=== PATIENT | female | born 1960 | race Caucasian/White ===

== ENCOUNTER → 2018-04-26 07:11 | Outpatient (CLI) | payer BC, SELFPAY ==
[2018-04-26 10:22] LABS: Hemoglobin 15.7 g/dl (12.0-15.0); Mean Corp Hgb Conc 33.4 g/gl (32-36); Mean Corpuscular Hgb 32.4 pg (27.0-32.0); Mean Corpuscular Volume 96.9 fL (81-99); Platelet Count 250 K/mm3 (150-450); RBC Distribution Width CV 13.4 % (11.6-14.6); Red Blood Count 4.85 M/mm3 (4.2-5.4); White Blood Count 9.4 K/mm3 (4.4-11.0)
[2018-04-26 10:23] LABS: Absolute Lymphocyte Count 3.13 X10^3/ul (0.83-4.51); Absolute Neutrophil Count 5.2 X10^3/uL (2.0-7.7); Basophil# 0.04 X10^3/uL; Basophil% 0.4 % (0-1); Eosinophil# 0.06 X10^3/uL; Eosinophils% 0.6 % (0-5); Lymphocyte # 3.13 X10^3/ul (4.0); Lymphocyte % 33.4 % (19-41); Mean Platelet Vol. 11.5 fl (6.2-12.0); Monocyte# 0.83 X10^3/uL; Monocyte% 8.9 % (0-10); Neutrophil # 5.24 X10^3/uL (2.7-7.7); Neutrophil % 56.1 % (47-70); POSITIVE COUNT NO; POSITIVE DIFFERENTIAL NO; POSITIVE MORPHOLOGY NO
[2018-04-26 10:25] LABS: Hemoglobin A1c 5.9 % (4.2-6.3)
[2018-04-26 10:54] LABS: ALB/GLOB Ratio 0.9 RATIO (0.9-2.4); AST(SGOT) 19 U/L (15-37); Alanine Aminotransfer ALT/SGPT 28 U/L (13-56); Albumin, Serum 4.1 g/dL (3.2-5.0); Alkaline Phosphatase 84 U/L (45-117); Anion Gap 11 (5-15); BUN 10 mg/dL (7-18); Calcium,Total 9.3 mg/dL (8.5-10.1); Chloride 95 mmol/L (98-107); Cholesterol 280 mg/dL (200); EST Glomerular Filtration Rate 61 mL/min (>60); Est Glom Filt Rate - Afr Amer 74 mL/min (>60); Globulin 4.6 g/dL (2.2-4.2); Glucose 96 mg/dL (74-106); High Density Lipoprotein 46 mg/dL; Potassium 4.1 mmol/L (3.5-5.1); Protein, Total 8.7 g/dL (6.4-8.2); Sodium Level 134 mmol/L (136-145); T4 Free Direct 0.36 ng/dL (0.76-1.46); Triglycerides 255 mg/dL; Very Low Density Lipoprotein 51 mg/dL (5-40)
== END ==
PROVIDERS: Family Provider Family Medicine; PCP Family Medicine; Referring Provider Family Medicine; Visit Provider Family Medicine
DX: Z00.01 Encounter for general adult medical examination with abnormal findings (principal); E78.5 Hyperlipidemia, unspecified; R63.5 Abnormal weight gain; R63.1 Polydipsia
CPT/HCPCS: 36415; 80053; 80061; 83036; 84439; 84443; 85025

== ENCOUNTER → 2018-05-09 14:45 | Outpatient (CLI) | payer BC, SELFPAY ==
--- NOTE | 2018-05-09 14:51 | CT_ITS ---
STUDY: LOW DOSE CT LUNG CANCER SCREENING REASON FOR EXAM: Female, 57 years old. Smoked 4-5 cigarettes for 17 years. RADIATION DOSAGE (If Supplied By Facility): CTDIvol = ( 3.40 ) mGy, DLP = ( 99.57 ) mGycm TECHNIQUE: No contrast was administered. Low dose technique was utilized (average mAS-38 and kVp 120). 1.25 mm axial source images with a slice interval of 1.25-mm were reconstructed in lung windows. 2.5 mm axial source images with a slice interval of 2.5-mm were reconstructed in lung windows. 5.0 mm axial source images with a slice interval of 5.0-mm were reconstructed in soft tissue windows. Nodule measured using lung windows on PACS and/or independent workstation with automated measurement of minimum and maximum diameter. Nodule measurement reported as average diameter rounded to the nearest whole number. Growth is defined as an increase ins size of greater than 1.5 mm. COMPARISON: None. NODULES: Total lung nodules (excluding granulomas): 0 Emphysema: There are diffuse emphysematous changes throughout the lungs. There is linear atelectasis versus scarring in the lingula. Endobronchial lesion: None Aorta: There is mild atherosclerotic tortuosity of the thoracic aorta without aneurysm. Coronary arteries: There are diffuse coronary artery calcifications. Heart: The heart is normal in size. There is a pericardial effusion. Pulmonary artery: Normal Mediastinal nodes: None Other chest and abdominal findings: There is a large retrocardiac hiatal hernia. There are degenerative changes of the thoracic spine. CT/Low Dose CT Lung Screening IMPRESSION: Lung-RADS category 1 - Continue annual screening with LDCT in 12 months. IMPORTANT NOTES FOR USE: ACR Lung-RADS Version 1.0 Assessment Categories Release Date: November 10, 2013 Category: Coded 0-4 bases on nodule(s) with highest degree of suspicion. Negative screen is defined as categories 1 and 2; a positive screen is defined as categories 3 and 4. Category 3 and 4A nodules that are unchanged on interval CT should be coded as category 2, and individuals returned to screening in 12 months. Category 4X: Category 3 or 4 nodules with additional imaging findings that increase the suspicion of lung cancer, such as spiculation, GGN that doubles in size in 1 year, enlarged lymph notes, etc. Category Modifiers: S (significant finding unrelated to lung cancer) and C (prior history of treated lung cancer) may be added to the 0-4 Lung-RADS Electronically Signed: Nickolas Summers DO at 21:06 EDT Tel [phone], Service support ,
== END ==
PROVIDERS: Family Provider Family Medicine; PCP Family Medicine; Referring Provider Family Medicine; Visit Provider Family Medicine
DX: Z12.2 Encounter for screening for malignant neoplasm of respiratory organs (principal)
CPT/HCPCS: G0297

== ENCOUNTER → 2018-07-10 16:06 | Outpatient (CLI) | payer BC, SELFPAY ==
[2018-07-10 17:52] LABS: Thyroid Stim Hormone (TSH) 0.13 uIU/mL (0.358-3.74)
== END ==
PROVIDERS: PCP Family Medicine; Visit Provider Family Medicine
DX: E03.9 Hypothyroidism, unspecified (principal)
CPT/HCPCS: 36415; 84443

== ENCOUNTER → 2018-10-29 08:45 | Outpatient (CLI) | payer BC, SELFPAY ==
[2018-10-29 13:32] LABS: Cholesterol 237 mg/dL (200); High Density Lipoprotein 48 mg/dL; Triglycerides 316 mg/dL; Very Low Density Lipoprotein 63 mg/dL (5-40)
== END ==
PROVIDERS: Family Provider Family Medicine; PCP Family Medicine; Visit Provider Family Medicine
DX: E78.1 Pure hyperglyceridemia (principal); E03.9 Hypothyroidism, unspecified
CPT/HCPCS: 36415; 80061; 84443

== ENCOUNTER → 2019-10-21 15:23 | Outpatient (CLI) | payer BC, SELFPAY ==
[2019-09-13 11:09] VITALS: BMI 32.2
== END ==
PROVIDERS: PCP Family Medicine; Referring Provider Family Medicine; Visit Provider Family Medicine
DX: R05 Cough (principal); R50.9 Fever, unspecified
CPT/HCPCS: 87633

== ENCOUNTER → 2020-02-27 14:13 | Outpatient (CLI) | payer BC, SELFPAY ==
[2019-09-13 11:09] VITALS: BMI 32.2
[2020-02-27 17:09] LABS: Absolute Neutrophil Count 5.3 X10^3/uL (2.0-7.7); Basophil# 0.07 X10^3/uL; Basophil% 0.7 % (0-1); Hematocrit 47.3 % (37-47); Hemoglobin 15.5 g/dL (12.0-15.0); Lymphocyte % 32.9 % (19-41); Mean Corp Hgb Conc 32.8 g/dL (32-36); Mean Corpuscular Hgb 31.1 pg (27.0-32.0); Monocyte# 1.15 X10^3/uL; Monocyte% 11.5 % (0-10); NRBC Flagged by Analyzer 0 % (0-5); Neutrophil # 5.31 X10^3/uL (2.7-7.7); Neutrophil % 52.9 % (47-70); Platelet Count 302 K/mm3 (150-450); RBC Distribution Width CV 12.7 % (11.6-14.6); RBC Distribution Width SD 44.3 fl (35.1-43.9); Red Blood Count 4.98 M/mm3 (4.2-5.4)
[2020-02-27 17:36] LABS: ALB/GLOB Ratio 0.9 RATIO (0.9-2.4); AST(SGOT) 24 U/L (15-37); Alanine Aminotransfer ALT/SGPT 37 U/L (13-56); Alkaline Phosphatase 104 U/L (45-117); Anion Gap 8 (5-15); BUN 9 mg/dL (7-18); BUN/Creat Ratio 10.4 RATIO (10-20); Calcium,Total 9.1 mg/dL (8.5-10.1); Chloride 98 mmol/L (98-107); Cholesterol 260 mg/dL (200); Creatinine, Serum 0.87 mg/dL (0.55-1.02); EST Glomerular Filtration Rate 71 mL/min (>60); Est Glom Filt Rate - Afr Amer 86 mL/min (>60); Globulin 4.6 g/dL (2.2-4.2); Glucose 90 mg/dL (74-106); High Density Lipoprotein 49 mg/dL; Potassium 3.9 mmol/L (3.5-5.1); Protein, Total 8.6 g/dL (6.4-8.2); Sodium Level 133 mmol/L (136-145); T4 Free Direct 1.59 ng/dL (0.76-1.46); Triglycerides 533 mg/dL
== END ==
PROVIDERS: PCP Family Medicine; Visit Provider Family Medicine
DX: Z00.00 Encounter for general adult medical examination without abnormal findings (principal); E03.9 Hypothyroidism, unspecified
CPT/HCPCS: 36415; 80053; 80061; 84439; 84443; 85025

== ENCOUNTER → 2020-03-25 07:54 | Outpatient (CLI) | payer BC, SELFPAY ==
[2019-09-13 11:09] VITALS: BMI 32.2
--- NOTE | 2020-03-25 07:58 | BI_ITS ---
MAMMOGRAPHY - BILATERAL SCREENING REASON FOR EXAM: Female, 59 years old. Routine annual screening examination. PERTINENT HISTORY: Sister with breast cancer. Mother with breast cancer. Remote left excisional breast biopsy and left stereotactic breast biopsy. TECHNIQUE: Digital bilateral breast elvira (3D mammographic acquisition) in the CC and MLO projections. 2-D mediolateral oblique (MLO) and craniocaudad (CC) views of both breasts were obtained. CAD: Full Field Digital Mammography with Computer Added Detection was performed. COMPARISON: Comparison is made with prior study dated 09/13/2016. FINDINGS: Breast Composition: There are scattered areas of fibroglandular density. There are no dominant masses or suspicious calcifications. Dilatation clip markers are seen in the upper outer quadrant of the left breast. The previously seen cluster microcalcifications in the anterior upper lateral portion of the left breast as well as the calcifications in the lateral deep portion of the left breast have been biopsied. There is a 1 cm well-defined nodule in the deep medial portion of the left breast seen on the craniocaudad view. This most likely represents a skin lesion. No other significant abnormalities are identified. BI/SCREEN MAMM (CAD) W/ELVIRA BILAT IMPRESSION: Status post biopsy of the microcalcifications in the left breast.. Yearly follow-up mammogram recommended. (A) ASSESSMENT CATEGORY: BIRADS Category 2: Benign. A letter regarding these results will be sent to the patient by the facility within 30 days. Approximately 10% of breast cancers are not detected by mammography. A normal mammogram should not delay biopsy of a clinically suspicious abnormality. [id number] Electronically Signed: Siddhartha Negron, at 8:43 EDT , Service support ,
== END ==
PROVIDERS: PCP Family Medicine; Referring Provider Family Medicine; Visit Provider Family Medicine
DX: Z12.31 Encounter for screening mammogram for malignant neoplasm of breast (principal)
CPT/HCPCS: 77063; 77067

== ENCOUNTER 2021-08-03 12:14 | Outpatient (CLI) | payer OTHER, SELFPAY ==
--- NOTE | 2021-08-03 12:20 | BI_ITS ---
MAMMOGRAPHY - BILATERAL SCREENING REASON FOR EXAM: Female, 61 years old. Routine annual screening examination. PERTINENT HISTORY: Sister with breast cancer. Mother with breast cancer. TECHNIQUE: Digital bilateral breast elvira (3D mammographic acquisition) in the CC and MLO projections. 2-D mediolateral oblique (MLO) and craniocaudad (CC) views of both breasts were obtained. CAD: Full Field Digital Mammography with Computer Added Detection was performed. COMPARISON: Comparison is made with prior study dated 03/25/2020 and 09/13/2016. FINDINGS: Breast Composition: There are scattered areas of fibroglandular density. There are no dominant masses or suspicious calcifications. Stable 1 cm well-defined nodule in the deep medial portion of the left breast as seen on the craniocaudad view. This most likely represents an overlying skin lesion. Tissue clip marker is once again seen in the upper lateral aspect of the left breast. No other significant abnormalities are identified. There has been no significant change since the prior study. BI/SCRN MAMM (CAD)W/ELVIRA BILAT IMPRESSION: Stable bilateral screening mammogram. Yearly follow-up mammogram recommended. (A) ASSESSMENT CATEGORY: BIRADS Category 2: Benign. A letter regarding these results will be sent to the patient by the facility within 30 days. Approximately 10% of breast cancers are not detected by mammography. A normal mammogram should not delay biopsy of a clinically suspicious abnormality. [id number] Electronically Signed: Siddhartha Negron MD at 13:37 EST , Service support ,
== END 2021-08-03 23:59 | disposition short-term general hospital (02) ==
LOC: OPBI 12:19
PROVIDERS: PCP Family Medicine; Referring Provider Family Medicine; Visit Provider Family Medicine
DX: Z12.31 Encounter for screening mammogram for malignant neoplasm of breast (principal); Z80.3 Family history of malignant neoplasm of breast
CPT/HCPCS: 77063; 77067

== ENCOUNTER 2021-11-09 07:08 | Emergency (ER) | payer OTHER, SELFPAY ==
[2021-11-09 07:09] VITALS: BP 145/94; PULSE 93; RESP 14; TEMP 36.3; O2SAT 96; BMI 29.1
--- NOTE | 2021-11-09 07:31 | EKG12_ITS ---
Test Reason : Blood Pressure : / mmHG Vent. Rate : 085 BPM Atrial Rate : 085 BPM P-R Int : 148 ms QRS Dur : 068 ms QT Int : 386 ms P-R-T Axes : 051 001 076 degrees QTc Int : 459 ms Normal sinus rhythm Low voltage QRS (Limb Leads) Anterior Septal [place], age undetermined, cannot be excluded Confirmed by ROLAND HOANG, KEVIN ([id number]), order editor NORMAN GREGORY ([id number]) on 11/11/2021 10:25:20 AM Referred By: ASHKAN Confirmed By:KEVIN WATKINS MD
--- NOTE | 2021-11-09 07:31 | CT_ITS ---
EXAM: CT HEAD WITHOUT INTRAVENOUS CONTRAST CLINICAL INDICATION: Trauma TECHNIQUE: Multiple axial images were obtained of the head without intravenous contrast. This CT exam was performed using one or more of the following dose reduction techniques: automated exposure control, adjustment of the mA and/or kV according to patient size, and/or use of iterative reconstruction technique. This report was created using [employer] report generation technology. COMPARISON: None. FINDINGS: BRAIN AND EXTRA-AXIAL SPACES: Unremarkable. No intra- or extra-axial hemorrhage. No evidence of acute infarct. No intracranial mass or mass effect. There is preservation of the castrejon/white matter interface. Posterior fossa structures are unremarkable. Ventricles are appropriate for age. No hydrocephalus. Basal cisterns are patent. BONES/JOINTS: Unremarkable. No discrete lytic or blastic abnormalities. SINUSES: Unremarkable as visualized. Clear. MASTOID AIR CELLS: Unremarkable. Clear. ORBITS: Visualized globes, extraocular muscles, optic nerves and retrobulbar fat appear unremarkable. CT/Brain/Head without Contrast IMPRESSION: No acute abnormality. Electronically Signed: Jona Epps MD at 8:31 EDT ,
--- NOTE | 2021-11-09 07:32 | EDS_ITS ---
HPI History of Present Illness Chief Complaint: Syncope Informant: patient Onset/Context/Timing Onset: Today Narrative Narrative: Patient presents via private vehicle after 2 syncopal episodes at work this morning. She states she did not feel well when she got up this morning feeling fuzzy. She reports having a fever up to 102 with mild cough and congestion the past 2 days. She is not been eating and drinking much. She states she was standing at work remembers feeling lightheaded. The next thing she knows she woke up on the floor. Her coworker sat her up when she passed out again. She denies chest pain or palpitations. [facility] Medical History Hx of gastroesophageal reflux (GERD) Hypothyroidism Home Medications pantoprazole 40 mg PO DAILY 12/18/16 [History Last Taken Unknown] levothyroxine 150 mcg tablet 150 mcg PO DAILY 09/13/19 [History Last Taken Unknown] sulfamethoxazole-trimethoprim [Bactrim DS] 1 tab PO BID #6 tab 11/09/21 [Rx Last Taken Unknown] Allergy/AdvReac Type Severity Reaction Status Date / Time amoxicillin Allergy Unknown Verified 11/09/21 07:11 Penicillins Allergy Unknown Verified 11/09/21 07:11 azithromycin AdvReac Rash Verified 11/09/21 07:11 [From Zithromax Z-Jl] cephalexin [From Keflex] AdvReac Rash Verified 11/09/21 07:11 erythromycin base AdvReac Rash Verified 11/09/21 07:11 erythromycin Allergy Unknown Uncoded 11/09/21 07:11 Social History Smoking Status: Current every day smoker tobacco type: cigarettes ROS ROS ED Constitutional Constitutional ED: Reports fever(s); Denies chills Eyes Eyes: Denies change in vision ENT ENT ED: Denies sore throat Cardiovascular Cardiovascular: Denies chest pain or palpitations Respiratory/Chest Respiratory/Chest: Reports cough; Denies dyspnea or sputum Gastrointestinal Gastrointestinal: Denies abdominal pain, diarrhea, nausea or vomiting Genitourinary Genitourinary ED: Reports urinary frequency; Denies dysuria Musculoskeletal Musculoskeletal: Denies back pain or neck pain Integumentary Denies rash Neurologic Neurologic: Denies headache(s) or weakness Psychiatric Psychiatric: Denies anxiety or depression Allergic/Immunologic Allergic/Immunologic ED: Denies urticaria EXAM Physical Exam Const Vital Signs: 11/09/21 07:09 11/09/21 07:16 11/09/21 09:14 Temperature 97.4 F L Temperature Source Temporal Pulse Rate 93 Respiratory Rate 14 Respiratory Effort Normal Non-Labored Blood Pressure 145/94 H 135/87 H Blood Pressure Mean 111 103 Pulse Ox 96 Oxygen Delivery Method Room Air Positive well nourished and well developed General Appearance ED: well developed HEENT Negative for trauma Eyes PERRL and EOMs intact bilaterally Neck supple Chest Wall inspection of chest normal and palpation of chest normal Resp normal respiratory effort and clear to auscultation bilaterally Cardio regular rate and regular rhythm GI normal to inspection, nondistended, normoactive bowel sounds and non-tender Palpation: soft Extremity normal to inspection Neuro oriented x3 and no sensory deficits noted Sensorium / Orientation: alert Motor Exam: strength 5/5 throughout Psych mental status grossly normal Skin no rashes or lesions noted MDM MDM MDM Narrative Medical decision making narrative: Lab work, EKG, chest x-ray, head CT obtained. Swabs for influenza and COVID obtained. Patient given IV fluids. Lab Data Attestation: I reviewed the patient's lab results. Labs: Laboratory Results - last 24 hr 11/09/21 11/09/21 11/09/21 07:43 07:43 08:18 WBC 5.3 RBC 5.05 Hgb 15.6 H Hct 46.7 MCV 92.5 MCH 30.9 MCHC 33.4 RDW Std Deviation 46.5 H RDW Coeff of Aury 13.6 Plt Count 192 MPV 10.1 Immature Gran % (Auto) 0.800 Neut % (Auto) 57.5 Lymph % (Auto) 26.6 [place] % (Auto) 14.7 H Eos % (Auto) 0.0 Baso % (Auto) 0.4 Absolute Neuts (auto) 3.1 Absolute Lymphs (auto) 1.41 Nucleated RBC % 0 Sodium 127 L Potassium 3.9 Chloride 94 L Carbon Dioxide 24.0 Anion Gap 9 BUN 18 Creatinine 0.94 Estim Creat Clear Calc 54.27 Est GFR (MDRD) Af Amer 78 Est GFR (MDRD) Non-Af 65 BUN/Creatinine Ratio 19.3 Glucose 113 H Calcium 8.3 L Urine Color Yellow Urine Clarity Cloudy Urine pH 6.0 Ur Specific [place] 1.020 Urine Protein 30 H Urine Glucose (UA) Normal Urine Ketones 15 H Urine Occult Blood 25 H Urine Nitrite Positive H Urine Bilirubin Negative Urine Urobilinogen Normal Ur Leukocyte Esterase 500 H Urine RBC 0-5 SEEN Urine WBC 25-50 SEEN Ur Squamous Epith Cells 0 SEEN Urine Bacteria 4+ Urine Mucus 0 SEEN Radiography Chest X-Ray - ED: 1 View, Read by ED Physician and Chronic Changes Diagnostic Testing: Clinical Impression(s) from Imaging Studies Brain CT 11/09/21 07:31 IMPRESSION: No acute abnormality. Electronically Signed: Jona Epps MD at 8:31 EDT , Chest X-Ray 11/09/21 07:55 IMPRESSION: 1. Mild cardiomegaly. 2. Hiatal hernia. Electronically Signed: Jona Epps MD at 8:34 EDT , EKG Initial EKG: Attestation: I personally reviewed and interpreted this EKG as follows: Interpretation: Sinus Rhythm (Sinus 85 with no acute ischemia.) Treatment and Re-Evaluation Narrative: Lab work reviewed and discussed with patient and at bedside. CBC reveals hemoglobin concentrated at 15.6. Chemistry studies reveal sodium of 127. Urinalysis shows 15 ketones, positive nitrites, 25-50 white cells, 4+ bacteria. COVID test is positive. Influenza test negative. Patient does feel improved on repeat evaluation. Test results discussed with her. Urine culture is sent and she is given p.o. Bactrim. Prescription for Bactrim will be sent to the pharmacy for her. She is written off work for a total of 10 days from onset of symptoms. Discharge Plan Triage Chief Complaint: Syncope ED Provider: Cece Jovel Dx/Rx/DC Orders Clinical Impression: COVID-19, UTI (urinary tract infection) Instructions: Coronavirus Disease 2019 (COVID-19): Caring for Yourself or Others, ED CYSTITIS Female Adult Prescriptions: New sulfamethoxazole-trimethoprim [Bactrim DS] 800-160 mg tablet 1 tab PO BID Qty: 6 RF: 0 No Action levothyroxine [Synthroid] 150 mcg tablet 150 mcg PO DAILY RF: 0 pantoprazole 40 MG tablet 40 mg PO DAILY RF: 0 Stand Alone Forms: ED Work / School Excuse Primary Care Provider: Adriano Patel Referrals: Adriano Patel DO [Primary Care Provider] - 1 Week Disposition Disposition: Home, Self Care
[2021-11-09] MEDS: 0.9% Normal Saline 1,000 ML 1000 ML IV (07:45)
[2021-11-09 07:49] LABS: Absolute Lymphocyte Count 1.41 X10^3/uL (0.83-4.51); Absolute Neutrophil Count 3.1 X10^3/uL (2.0-7.7); Basophil# 0.02 X10^3/uL; Basophil% 0.4 % (0-1); Hematocrit 46.7 % (37-47); Hemoglobin 15.6 g/dL (12.0-15.0); Lymphocyte # 1.41 X10^3/ul (0.83-4.51); Lymphocyte % 26.6 % (19-41); Mean Corp Hgb Conc 33.4 g/dL (32-36); Mean Corpuscular Hgb 30.9 pg (27.0-32.0); Mean Corpuscular Volume 92.5 fL (81-99); Mean Platelet Vol. 10.1 fl (6.2-12.0); Monocyte# 0.78 X10^3/uL; Monocyte% 14.7 % (0-10); NRBC Flagged by Analyzer 0 % (0-5); Neutrophil # 3.05 X10^3/uL (2.7-7.7); Neutrophil % 57.5 % (47-70); Platelet Count 192 K/mm3 (150-450); RBC Distribution Width CV 13.6 % (11.6-14.6); RBC Distribution Width SD 46.5 fl (35.1-43.9); Red Blood Count 5.05 M/mm3 (4.2-5.4); White Blood Count 5.3 K/mm3 (4.4-11.0)
--- NOTE | 2021-11-09 07:55 | RAD_ITS ---
EXAM: XR CHEST, 1 VIEW CLINICAL INDICATION: cough TECHNIQUE: Frontal view of the chest. This report was created using [employer] report generation technology. COMPARISON: None. FINDINGS: LUNGS AND PLEURAL SPACES: Unremarkable. No consolidation or edema. No pneumothorax. No effusion. HEART: Mild cardiomegaly. MEDIASTINUM: Moderate-sized hiatal hernia. BONES/JOINTS: Unremarkable. SOFT TISSUES: Unremarkable. RAD/Chest 1 View (Portable) IMPRESSION: 1. Mild cardiomegaly. 2. Hiatal hernia. Electronically Signed: Jona Epps MD at 8:34 EDT ,
[2021-11-09 08:02] LABS: Anion Gap 9 (5-15); BUN 18 mg/dL (7-18); BUN/Creat Ratio 19.3 RATIO (10-20); Calcium,Total 8.3 mg/dL (8.5-10.1); Chloride 94 mmol/L (98-107); Creatinine, Serum 0.94 mg/dL (0.55-1.02); EST Glomerular Filtration Rate 65 mL/min (>60); Est Glom Filt Rate - Afr Amer 78 mL/min (>60); Estimated Creatinine Clearance 54.27 ml/min; Glucose 113 mg/dL (74-106); Potassium 3.9 mmol/L (3.5-5.1); Sodium Level 127 mmol/L (136-145)
[2021-11-09 08:24] LABS: Mucous, Urine 0 SEEN /hpf (<or=2+); Squamous Epithelial Cells - UA 0 SEEN /hpf (5-10)
[2021-11-09 08:27] LABS: Color, Urine Yellow (Yellow); Glucose, Dipstick Normal (Normal); Ketone-Dipstick 15 mg/dl (Negative); Leukocyte Esterase-Dipstick 500 /ul (Negative); Nitrite-Dipstick Positive (Negative); Occult Blood-Urine 25 /ul (Negative); Protein-Dipstick 30 mg/dl (Negative); Urine Bilirubin Dipstick Negative (Negative); Urine Clarity Cloudy (Clear); Urine Urobilinogen Normal (Normal)
[2021-11-09 08:39] LABS: Bacteria 4+ /hpf (None Seen); Red Blood Cells-Urine 0-5 SEEN /hpf (0-5); White Blood Cells 25-50 SEEN /hpf (0-5)
[2021-11-09 09:14] VITALS: BP 135/87
[2021-11-09] MEDS: 0.9% Normal Saline 1,000 ML 150 ML IV (09:34)
[2021-11-09] MEDS: Smz/Tmp Ds Tablet 1 TABLET PO (09:34)
== END 2021-11-09 09:58 | disposition home or self-care (01) ==
PROVIDERS: Emergency Provider Emergency Medicine; PCP Family Medicine; Visit Provider Emergency Medicine
DX: U07.1 COVID-19 (principal); F17.210 Nicotine dependence, cigarettes, uncomplicated; N39.0 Urinary tract infection, site not specified; E03.9 Hypothyroidism, unspecified; K21.9 Gastro-esophageal reflux disease without esophagitis; Z79.899 Other long term (current) drug therapy
CPT/HCPCS: 70450; 71045; 80048; 81001; 85025; 87077; 87086; 87088; 87186; 87428; 93005; 96360; 96361; 99284; J7030; A4216

== ENCOUNTER → 2022-07-06 | Outpatient (CLI) | payer OTHER, SELFPAY ==
--- NOTE | 2022-07-06 10:36 | RAD_ITS ---
INDICATION: BACK PAIN EXAMINATION/TECHNIQUE: X-RAY - XR Spine Lumbar Min 4 Views COMPARISON: None. FINDINGS: VERTEBRAE: Preserved vertebral body height. No fracture. Grade 1 spondylolisthesis at L4-5.. Preservation of the normal lumbar lordosis. DISCS: Mild narrowing of L4-5 disc space and multilevel endplate spurring INCLUDED ABDOMEN: Included bowel gas pattern is non-obstructive. RAD/L/S Spine Min 4 Views IMPRESSION: Mild spondylosis. No acute fracture or other significant bony pathology Electronically Signed: Gerardo Goodman MD at 22:02 EST ,
--- NOTE | 2022-07-06 10:36 | RAD_ITS ---
INDICATION: BACK PAIN EXAMINATION/TECHNIQUE: X-RAY - XR Spine Thoracic 2 Views COMPARISON: Chest radiograph 11/09/2021. FINDINGS: No visible fracture. No osseous destruction. Sagittal alignment anatomic. Mild left scoliosis centered at T8. Prominent disc degeneration mid and lower thoracic spine. No acute soft tissue abnormality. Calcific atherosclerosis. Hiatal hernia again demonstrated. RAD/Thoracic Spine 2 Views IMPRESSION: No acute osseous abnormality. Electronically Signed: Sergio Shi MD at 23:52 EST Reading Location ID and State: [facility] / [place] Tel , Service support ,
[2022-07-06 12:19] LABS: Absolute Lymphocyte Count 2.79 X10^3/uL (0.83-4.51); Absolute Neutrophil Count 4.3 X10^3/uL (2.0-7.7); Basophil# 0.05 X10^3/uL; Basophil% 0.6 % (0-1); Eosinophil# 0.06 X10^3/uL; Eosinophils% 0.7 % (0-5); Hematocrit 44.5 % (37-47); Hemoglobin 14.8 g/dL (12.0-15.0); Lymphocyte # 2.79 X10^3/ul (0.83-4.51); Lymphocyte % 34.4 % (19-41); Mean Corp Hgb Conc 33.3 g/dL (32-36); Mean Corpuscular Hgb 30.7 pg (27.0-32.0); Mean Corpuscular Volume 92.3 fL (81-99); Monocyte# 0.88 X10^3/uL; Monocyte% 10.8 % (0-10); NRBC Flagged by Analyzer 0 % (0-5); Neutrophil # 4.27 X10^3/uL (2.7-7.7); Neutrophil % 52.6 % (47-70); Platelet Count 300 K/mm3 (150-450); RBC Distribution Width CV 12.8 % (11.6-14.6); RBC Distribution Width SD 43.3 fl (35.1-43.9); Red Blood Count 4.82 M/mm3 (4.2-5.4); White Blood Count 8.1 K/mm3 (4.4-11.0)
[2022-07-06 12:30] LABS: Vitamin B12 287 pg/mL (211-911); Vitamin D,25 Hydroxy 15.7 ng/mL
[2022-07-06 12:38] LABS: ALB/GLOB Ratio 0.8 RATIO (0.9-2.4); AST(SGOT) 24 U/L (15-37); Alanine Aminotransfer ALT/SGPT 32 U/L (13-56); Albumin, Serum 3.6 g/dL (3.2-5.0); Alkaline Phosphatase 87 U/L (45-117); Anion Gap 6 (5-15); BUN 15 mg/dL (7-18); BUN/Creat Ratio 17.8 RATIO (10-20); Calcium,Total 9.6 mg/dL (8.5-10.1); Chloride 101 mmol/L (98-107); Cholesterol 261 mg/dL (200); Creatinine, Serum 0.84 mg/dL (0.55-1.02); EST Glomerular Filtration Rate 73 mL/min (>60); Est Glom Filt Rate - Afr Amer 88 mL/min (>60); Globulin 4.5 g/dL (2.2-4.2); Glucose 117 mg/dL (74-106); High Density Lipoprotein 48 mg/dL; Magnesium 2.3 mg/dL (1.6-2.6); Potassium 4.4 mmol/L (3.5-5.1); Protein, Total 8.1 g/dL (6.4-8.2); Sodium Level 132 mmol/L (136-145); T4 Free Direct 1.68 ng/dL (0.76-1.46); Thyroid Stim Hormone (TSH) 0.23 uIU/mL (0.358-3.74); Triglycerides 314 mg/dL; Very Low Density Lipoprotein 63 mg/dL (5-40)
== END | disposition home or self-care (01) ==
PROVIDERS: PCP Family Medicine; Referring Provider Family Medicine; Visit Provider Family Medicine
DX: K44.9 Diaphragmatic hernia without obstruction or gangrene (principal); M51.34 Other intervertebral disc degeneration, thoracic region; I25.10 Atherosclerotic heart disease of native coronary artery without angina pectoris; I10 Essential (primary) hypertension; E03.9 Hypothyroidism, unspecified; R10.9 Unspecified abdominal pain; R25.2 Cramp and spasm; R53.83 Other fatigue
CPT/HCPCS: 36415; 72070; 72072; 72110; 80053; 80061; 82306; 82607; 83735; 84439; 84443; 85025

== ENCOUNTER → 2022-12-14 | Outpatient (CLI) | payer OTHER, SELFPAY ==
[2022-12-14 18:22] LABS: Absolute Lymphocyte Count 2.85 X10^3/uL (0.83-4.51); Absolute Neutrophil Count 5.5 X10^3/uL (2.0-7.7); Basophil# 0.05 X10^3/uL; Basophil% 0.5 % (0-1); Eosinophil# 0.06 X10^3/uL; Eosinophils% 0.6 % (0-5); Hematocrit 45.8 % (37-47); Hemoglobin 14.3 g/dL (12.0-15.0); Lymphocyte # 2.85 X10^3/ul (0.83-4.51); Lymphocyte % 29.7 % (19-41); Mean Corp Hgb Conc 31.2 g/dL (32-36); Mean Corpuscular Hgb 28.4 pg (27.0-32.0); Mean Corpuscular Volume 91.1 fL (81-99); Mean Platelet Vol. 10.8 fl (6.2-12.0); Monocyte# 1.06 X10^3/uL; NRBC Flagged by Analyzer 0 % (0-5); Neutrophil # 5.48 X10^3/uL (2.7-7.7); Neutrophil % 57.2 % (47-70); Platelet Count 317 K/mm3 (150-450); RBC Distribution Width SD 46.7 fl (35.1-43.9); Red Blood Count 5.03 M/mm3 (4.2-5.4); White Blood Count 9.6 K/mm3 (4.4-11.0)
[2022-12-14 18:44] LABS: Vitamin B12 570 pg/mL (211-911); Vitamin D,25 Hydroxy 75.7 ng/mL
[2022-12-14 18:46] LABS: ALB/GLOB Ratio 0.9 RATIO (0.9-2.4); AST(SGOT) 30 U/L (15-37); Alanine Aminotransfer ALT/SGPT 27 U/L (13-56); Albumin, Serum 3.7 g/dL (3.2-5.0); Alkaline Phosphatase 87 U/L (45-117); Anion Gap 8 (5-15); BUN 13 mg/dL (7-18); BUN/Creat Ratio 11.2 RATIO (10-20); Calcium,Total 9.3 mg/dL (8.5-10.1); Chloride 100 mmol/L (98-107); Cholesterol 242 mg/dL (200); Creatinine, Serum 1.16 mg/dL (0.55-1.02); EST Glomerular Filtration Rate 50 mL/min (>60); Est Glom Filt Rate - Afr Amer 61 mL/min (>60); Globulin 4.3 g/dL (2.2-4.2); Glucose 105 mg/dL (74-106); High Density Lipoprotein 44 mg/dL; Sodium Level 134 mmol/L (136-145); T4 Free Direct 1.51 ng/dL (0.76-1.46); Thyroid Stim Hormone (TSH) 0.57 uIU/mL (0.358-3.74); Triglycerides 448 mg/dL
== END | disposition home or self-care (01) ==
PROVIDERS: PCP Family Medicine; Referring Provider Family Medicine; Visit Provider Family Medicine
DX: I25.10 Atherosclerotic heart disease of native coronary artery without angina pectoris (principal); I10 Essential (primary) hypertension; E03.9 Hypothyroidism, unspecified; R10.9 Unspecified abdominal pain; R25.2 Cramp and spasm; E53.8 Deficiency of other specified B group vitamins; E55.9 Vitamin D deficiency, unspecified
CPT/HCPCS: 36415; 80053; 80061; 82306; 82607; 84439; 84443; 85025

== ENCOUNTER → 2023-12-27 | Outpatient (CLI) | payer OTHER, SELFPAY ==
--- NOTE | 2023-12-27 11:50 | BI_ITS ---
MAMMOGRAPHY - BILATERAL SCREENING REASON FOR EXAM: Female, 63 years old. Routine annual screening examination. PERTINENT HISTORY: Sister with breast cancer. Mother with breast cancer. Remote left excisional breast biopsy. Possible sebaceous cyst in the medial aspect of the right breast. TECHNIQUE: Digital bilateral breast elvira (3D mammographic acquisition) in the CC and MLO projections. 2-D mediolateral oblique (MLO) and craniocaudad (CC) views of both breasts were obtained. CAD: Full Field Digital Mammography with Computer Added Detection was performed. COMPARISON: Comparison is made with prior study dated August 03, 2021 and March 25, 2020. FINDINGS: Breast Composition: There are scattered areas of fibroglandular density. There are no dominant masses or suspicious calcifications. 1 cm well-defined nodule in the deep inferior medial aspect of the right breast suggestive of a skin lesion such as a sebaceous cyst. A tissue clip marker is seen involving the upper lateral aspect of the left breast. Stable bilateral axillary lymph nodes. No other significant abnormalities are identified. There has been no significant change since the prior study. BI/SCRN MAMM (CAD)W/ELVIRA BILAT IMPRESSION: Stable bilateral screening mammogram. Yearly follow-up mammogram recommended. (A) ASSESSMENT CATEGORY: BIRADS Category 2: Benign. A letter regarding these results will be sent to the patient by the facility within 30 days. Approximately 10% of breast cancers are not detected by mammography. A normal mammogram should not delay biopsy of a clinically suspicious abnormality. [id number] Electronically Signed: Siddhartha Negron MD at 13:12 EDT ,
== END | disposition home or self-care (01) ==
LOC: OPBI 11:48
PROVIDERS: PCP Family Medicine; Referring Provider Family Medicine; Visit Provider Family Medicine
DX: Z12.31 Encounter for screening mammogram for malignant neoplasm of breast (principal); Z80.3 Family history of malignant neoplasm of breast
CPT/HCPCS: 77063; 77067

== ENCOUNTER → 2024-01-07 | Outpatient (CLI) | payer OTHER, SELFPAY ==
--- NOTE | 2024-01-07 09:40 | RAD_ITS ---
STUDY: X-RAY - PELVIS AND LEFT HIP REASON FOR EXAM: Female, 63 years old. HIP PAIN TECHNIQUE: 3 views of the pelvis and left hip. COMPARISON: None. FINDINGS: There is a non-specific bowel gas pattern. There are atherosclerotic vascular calcifications of the pelvic and femoral arteries. Normal bilateral iliac wings, sacroiliac joints and visualized sacrum. Normal bilateral superior and inferior pubic rami. There is mild pubic symphysis arthrosis. Normal bilateral ischial tuberosities. There is moderate to severe degenerative arthrosis of the left hip joint with joint space narrowing and marginal osteophyte formation. There is no demonstrated acute fracture. RAD/HIP, UNI W/ Pelvis 2-3 Views IMPRESSION: Moderate to severe degenerative arthrosis of the left hip joint. Mild pubic symphysis arthrosis. Electronically Signed: Neftali Bonds MD at 11:03 EDT ,
== END | disposition home or self-care (01) ==
PROVIDERS: PCP Family Medicine; Referring Provider Family Medicine; Visit Provider Family Medicine
DX: M25.552 Pain in left hip (principal)
CPT/HCPCS: 73502

== ENCOUNTER → 2024-02-26 | Outpatient (CLI) | payer OTHER, SELFPAY ==
[2024-03-02 16:07] LABS: Age Gdln ACOG Testing 30-65 (.); HPV APTIMA, High Risk Negative (Negative)
[2024-03-03 16:17] LABS: HPV Reflexed? YES, CHARGE PATIENT
== END | disposition home or self-care (01) ==
LOC: LABSPEC 12:29
PROVIDERS: PCP Family Medicine; Referring Provider Family Medicine; Visit Provider Family Medicine
DX: Z12.4 Encounter for screening for malignant neoplasm of cervix (principal)
CPT/HCPCS: 87624; 88175; G0145

== ENCOUNTER → 2024-07-14 | Outpatient (CLI) | payer MEDICARE, SELFPAY ==
[2024-07-14 13:08] LABS: ALB/GLOB Ratio 0.8 RATIO (0.9-2.4); AST(SGOT) 16 U/L (15-37); Alanine Aminotransfer ALT/SGPT 22 U/L (13-56); Albumin, Serum 3.7 g/dL (3.2-5.0); Alkaline Phosphatase 95 U/L (45-117); Anion Gap 9 (5-15); BUN 11 mg/dL (7-18); BUN/Creat Ratio 12.2 RATIO (10-20); Calcium,Total 9.4 mg/dL (8.5-10.1); Chloride 95 mmol/L (98-107); Cholesterol 234 mg/dL (200); EST Glomerular Filtration Rate 67 mL/min (>60); Est Glom Filt Rate - Afr Amer 81 mL/min (>60); Globulin 4.6 g/dL (2.2-4.2); Glucose 110 mg/dL (74-106); High Density Lipoprotein 50 mg/dL; Potassium 4.1 mmol/L (3.5-5.1); Protein, Total 8.3 g/dL (6.4-8.2); Sodium Level 131 mmol/L (136-145); T4 Free Direct 1.59 ng/dL (0.76-1.46); Thyroid Stim Hormone (TSH) 0.526 uIU/mL (0.358-3.740); Triglycerides 252 mg/dL; Very Low Density Lipoprotein 50 mg/dL (5-40)
== END | disposition home or self-care (01) ==
LOC: MTLAB 10:31
PROVIDERS: PCP Family Medicine; Referring Provider Family Medicine; Visit Provider Family Medicine
DX: I10 Essential (primary) hypertension (principal); E03.9 Hypothyroidism, unspecified; E78.1 Pure hyperglyceridemia
CPT/HCPCS: 36415; 80053; 80061; 84439; 84443

== ENCOUNTER → 2025-02-12 | Outpatient (CLI) | payer MEDICARE, SELFPAY ==
[2025-02-12 15:31] LABS: Hematocrit 44.4 % (37-47); Hemoglobin 14.1 g/dL (12.0-15.0); Immature Granulocytes Count 0.030 X10^3/uL (0.0-0.0); Mean Corp Hgb Conc 31.8 g/dL (32-36); Mean Corpuscular Volume 89.2 fL (81-99); Mean Platelet Vol. 10.5 fl (6.2-12.0); NRBC Flagged by Analyzer 0 % (0-5); Platelet Count 234 K/mm3 (150-450); RBC Distribution Width CV 14.6 % (11.6-14.6); RBC Distribution Width SD 47.7 fl (35.1-43.9); Red Blood Count 4.98 M/mm3 (4.2-5.4); White Blood Count 8.6 K/mm3 (4.4-11.0)
[2025-02-12 16:08] LABS: AST(SGOT) 34 U/L (<=31); Alanine Aminotransfer ALT/SGPT 38 U/L (<=34); Albumin, Serum 3.9 g/dL (3.4-4.8); Alkaline Phosphatase 101 U/L (35-104); Anion Gap 11 (5-15); BUN 10 mg/dL (4-19); BUN/Creat Ratio 13.0 RATIO (10-20); Calcium,Total 9.1 mg/dL (7.6-11.0); Carbon Dioxide 27.2 mmol/L (21.0-32.0); Chloride 92 mmol/L (98-108); Globulin 3.2 g/dL (2.2-4.2); Glucose 105 mg/dL (70-99); Potassium 4.1 mmol/L (3.3-5.1); Pro- Brain NATRIURETIC PEPTIDE 4180 pg/mL (<=900)
== END | disposition home or self-care (01) ==
LOC: BFHLAB 11:31
PROVIDERS: PCP Family Medicine; Visit Provider Family Medicine
DX: I25.10 Atherosclerotic heart disease of native coronary artery without angina pectoris (principal); R06.00 Dyspnea, unspecified; E03.9 Hypothyroidism, unspecified; R53.83 Other fatigue
CPT/HCPCS: 36415; 80053; 83880; 84439; 84443; 85025

== ENCOUNTER → 2025-02-19 | Outpatient (CLI) | payer MEDICARE, SELFPAY ==
[2025-02-19 15:51] LABS: Anion Gap 15 (5-15); BUN 12 mg/dL (4-19); BUN/Creat Ratio 14.3 RATIO (10-20); Calcium,Total 9.2 mg/dL (7.6-11.0); Carbon Dioxide 29.4 mmol/L (21.0-32.0); Chloride 83 mmol/L (98-108); Glucose 120 mg/dL (70-99); Potassium 4.5 mmol/L (3.3-5.1); Pro- Brain NATRIURETIC PEPTIDE 4948 pg/mL (<=900)
== END | disposition home or self-care (01) ==
LOC: BFHLAB 11:42
PROVIDERS: PCP Family Medicine; Visit Provider Family Medicine
DX: I11.0 Hypertensive heart disease with heart failure (principal); I50.9 Heart failure, unspecified
CPT/HCPCS: 36415; 80048; 83880

== ENCOUNTER 2025-02-25 06:51 | Inpatient (IN) | payer MEDICARE, SELFPAY ==
[2025-02-25] VITALS (25 sets, daily range): BP systolic 68–200; BP diastolic 44–137; PULSE 66–92; RESP 12–25; TEMP 36.3–37.2; O2SAT 80–98; BMI 36.8; BMI 36.6
--- NOTE | 2025-02-25 07:07 | CT_ITS ---
PROCEDURE: BRAIN/HEAD WITHOUT CONTRAST 02/25/2025 REASON FOR EXAM: DIZZY TECHNIQUE: BRAIN/HEAD WITHOUT CONTRAST Coronal and Sagittal reconstruction series were provided. One or more dose reduction techniques were used (e.g., Automated exposure control, adjustment of the mA and/or kV according to patient size, use of iterative reconstruction technique. RADIATION DOSE SUMMARY: CTDlvol: 45 mGy DLP: 779 mGycm COMPARISON: November 09, 2021 FINDINGS: Brain: There is no evidence of hemorrhage, acute ischemia or mass. No extra- axial fluid collection, midline shift or mass effect. Patchy hypodensity in the periventricular white matter and deep white matter of the frontal and parietal lobes is similar to prior. CSF Spaces: Mild generalized cerebral atrophy Sinuses/Mastoids: Clear Bones: No fracture There is a small hyperdense, 6 mm nodular focus in the location of the anterior communicating artery that may represent a small aneurysm. This was partially volume averaged on prior exam and is likely unchanged. CT/Brain/Head without Contrast IMPRESSION: 1. No evidence of intracranial hemorrhage or acute ischemia. 2. Changes of chronic microvascular ischemia and volume loss. 3. Possible aneurysm at the expected location of the anterior communicating ar lynnette. No change. Reading Location: [facility]
--- OUTSIDE RECORDS SUMMARY | 2025-02-25 07:25 | XMS RPT_ITS | CCD ---
Author Organization [facility] Care Team Providers Care Horticultural Services Supervisor Name Role Phone Arsalan Vivas Unavailable [phone] Torri Boo LPN Unavailable Unavailab le Arsalan Vivas Unavailable [phone] REFERRING, PHY WO ID Primary Care Physician Unav ailable REFERRING, PHY WO ID Attending Unavailable REFERRING, PHY WO ID Primary Care Unavailable Dr. Adriano Patel DO Primary Care Provider Dr. Adriano Patel DO Attending Provider Adriano Patel Primary Care Unavailable Adriano Patel Referring Unavailable Adriano Patel Attending Unavailable Adriano Patel Primary Care Unavailable Adriano Patel Referring Unavailable Adriano Patel Attending Unavailable Adriano Patel Primary Care Unavailable Adriano Patel Attending Unavailable Adriano Patel Primary Care Unavailable Adriano Patel Attending Unavailable Adriano Patel Primary Care Unavailable Adriano Patel Referring Unavailable Adriano Patel Attending Unavailable Adriano Patel Primary Care Unavailable Adriano Patel Attending Unavailable Adriano Patel Referring Unavailable Adriano Patel Attending Unavailable Adriano Patel Primary Care Unavailable Allergies Allergy Classification Reported Allergen(s) Allergy Type Date of Onset Reaction(s) Facility (3 sources) azithromycin drug allergy hives [facility] Work Phone: (3 sources) cephalexin drug allergy 3 hives [facility] Work Phone: (4 sources) erythromycin drug allergy 2 hives, Unknown [facility] Work Phone: (3 sources) penicillin v drug allergy hives [facility] Work Phone: (4 sources) Amoxicillin Drug Allergy 2 [facility] (4 sources) Azithromycin Drug Allergy 2 [facility] (4 sources) Cephalexin Drug Allergy 2 [facility] (4 sources) Erythromycin Drug Allergy 2 [facility] (5 sources) Penicillins; Translations: [Penicillins] Allergy to substance 2 Unknown [facility] (1 source) Amoxicillin Drug Allergy 2 [facility] (1 source) Azithromycin Drug Allergy 2 [facility] (1 source) Cephalexin Drug Allergy 2 [facility] (1 source) Erythromycin Drug Allergy 2 [facility] Medications Current Medications Medication Drug Class(es) Dates Sig (Normalized) Sig (Original) levothyroxine sodium 0.15 mg oral tablet (4 sources) l-Thyroxine Start: 09-13-2019 take 1 tablet by mouth once daily Levothyroxine (Synthroid) 150 mcg tablet Active 150 ug PO DAILY September 13, 2019 1:00am pantoprazole 40 mg delayed release oral tablet (13 sources) Proton Pump Inhibitor Start: 12-18-2016 take 1 tablet by mouth once daily Pantoprazole 40 MG tablet Active 40 mg PO DAILY December 18, 2016 12:00am Start: 12-17-2012 End: 03-29-2015 take 1 tablet by mouth once daily PANTOPRAZOLE SODIUM 40 MG TBEC One tablet by mouth daily PANTOPRAZOLE SODIUM [id number] Adriano Patel DO sulfamethoxazole 800 mg / trimethoprim 160 mg oral tablet (10 sources) Dihydrofolate Reductase Inhibitor Antibacterial, Sulfonamide Antimicrobial Start: 11-09-2021 Sulfamethoxazole-Trimethopri m (Bactrim Ds) 800-160 mg tablet Active 1 {tbl} PO TWICE A DAY 6 0 November 09, 2021 12:00am Start: 01-09-2014 End: 01-09-2014 take 1 tablet by mouth twice daily SULFAMETHOXAZOLE-TRIMETHOPRIM 800-160 MG TABS One tablet by mouth twice daily SULFAMETHOXAZOLE-TRIMETHOPRIM [id number] Butch Hogue MD Completed/Discontinued Medications Medication Drug Class(es) Dates Sig (Normalized) Sig (Original) acetaminophen 300 mg / codeine phosphate 30 mg oral tablet (6 sources) Opioid Agonist Start: 09-15-2010 End: 07-04-2011 take 1 tablet by mouth every six hours as needed for pain TYLENOL WITH CODEINE #3 300-30 MG TABS one tablet by mouth every 6hr as needed pain ACETAMINOPHEN-CODE INE [id number] Butch Hogue MD Start: 09-15-2010 End: 07-04-2011 take 1 tablet by mouth every six hours as needed for pain TYLENOL WITH CODEINE #3 300-30 MG TABS one tablet by mouth every 6hr as needed pain ACETAMINOPHEN-CODEINE [id number] Butch Hogue MD Start: 09-15-2010 take 1 tablet by franchesca th every six hours as needed for pain TYLENOL WITH CODEINE #3 300-30 MG TABS one tablet by mouth every 6hr as needed pain ACETAMINOPHEN-CODEINE [id number] Butch Hogue MD aluminum hydroxide 80 mg/ml / magnesium hydroxide 80 mg/ml / simethicone 8 mg/ml oral suspension (6 sources) End: 12-20-2009 MAALOX MAX 400-400-40 MG/5ML SUSP 1 bottle every 2 days ALUM & MAG HYDROXIDE-SIMETH [id number] Melania K Angle MA MAALOX MAX 400-4 00-40 MG/5ML SUSP 1 bottle every 2 days ALUM & MAG HYDROXIDE-SIMETH [id number] Melania K Angle MA End: 12-20-2009 MAALOX MAX 400-400-40 MG/5ML SUSP 1 bottle every 2 days ALUM & MAG HYDROXIDE-SIMETH [id number] Melania K Angle MA ciprofloxacin 500 mg oral tablet (3 sources) Quinolone Antimicrobial Start: 07-30-2014 End: 08-04-2014 take 1 tablet by mouth twice daily CIPROFLOXACIN HCL 500 MG TABS One tablet by mouth twice daily CIPROFLOXACIN HCL [id number] Butch Hogue MD clindamycin 300 mg oral capsule (12 sources) Lincosamide Antibacterial Start: 01-09-2014 End: 01-19-2014 take 1 tablet by mouth three times daily CLINDAMYCIN HCL 300 MG CAPS One tablet by mouth three times daily CLINDAMYCIN HCL [id number] Butch Hogue MD Start: 09-15-2010 End: 04-01-2013 take 1 tablet by mouth three times daily CLINDAMYCIN HCL 300 MG CAPS One tablet by mouth three times daily CLINDAMYCIN HCL [id number] Butch Hogue MD codeine phosphate 2 mg/ml / guaiFENesin 20 mg/ml oral solution (12 sources) Opioid Agonist Start: 02-07-2013 End: 03-18-2013 take 5 mL by mouth every six hours as needed for cough CHERATUSSIN AC 100-10 MG/5ML SYRP 5ml by mouth every 6hr as needed cough, avoid driving or operating machine under the influence of medication. GUAIFENESIN-CODEINE [id number] Butch Hogue MD Start: 02-07-2013 take 5 mL by mouth e very six hours as needed for cough CHERATUSSIN AC 100-10 MG/5ML SYRP 5ml by mouth every 6hr as needed cough, avoid driving or operating machine under the influence of medication. GUAIFENESIN-CODEINE [id number] Butch Hogue MD Start: 02-07-2013 End: 03-18-2013 take 5 mL by mouth every six hours as needed for cough CHERATUSSIN AC 100-10 MG/5ML SYRP 5ml by mouth every 6hr as needed cough, avoid driving or operating machine under the influence of medication. GUAIFENESIN-CODEINE [id number] Butch Hogue MD Start: 07-04-2011 End: 09-18-2011 take 5 mL by mouth every six hours as needed for cough CHERATUSSIN AC 100-10 MG/5ML SYRP 5ml by mouth every 6hr as needed cough GUAIFENESIN-CODEINE [id number] Butch Hogue MD Start: 07-04-2011 take 5 mL by mouth e very six hours as needed for cough CHERATUSSIN AC 100-10 MG/5ML SYRP 5ml by mouth every 6hr as needed cough GUAIFENESIN-CODEINE [id number] Butch Hogue MD Start: 07-04-2011 End: 09-18-2011 take 5 mL by mouth every six hours as needed for cough CHERATUSSIN AC 100-10 MG/5ML SYRP 5ml by mouth every 6hr as needed cough GUAIFENESIN-CODEINE [id number] Butch Hogue MD doxycycline hyclate 100 mg oral tablet (9 sources) Tetracycline-class Drug Start: 02-07-2013 End: 03-18-2013 take 1 tablet by mouth twice daily DOXYCYCLINE HYCLATE 100 MG TABS One tablet by mouth twice daily DOXYCYCLINE HYCLATE [id number] Butch Hogue MD Start: 02-23-2010 End: 03-05-2010 take 1 tablet by mouth twice daily DOXYCYCLINE HYCLATE 100 MG CAPS One tablet by mouth twice daily DOXYCYCLINE HYCLATE [id number] Butch Hogue MD esomeprazole 40 mg delayed release oral capsule (9 sources) Proton Pump Inhibitor Start: 12-07-2009 End: 12-17-2012 take 1 tablet by mouth once daily NEXIUM 40 MG CPDR One tablet by mouth daily ESOMEPRAZOLE MAGNESIUM [id number] Butch Hogue MD Start: 12-07-2009 End: 12-17-2012 take 1 tablet by mouth once daily NEXIUM 40 MG CPDR One tablet by mouth daily ESOMEPRAZOLE MAGNESIUM [id number] Butch Hogue MD estrogens, conjugated (chcf) 0.625 mg/ml vaginal cream (6 sources) Estrogen Start: 09-18-2011 End: 09-29-2013 PREMARIN 0.625 MG/GM CREA 2 gram apply vaginally three times a week x 2 wks, then once a week ESTROGENS, CONJUGATED [id number] Butch Hogue MD Start: 09-18-2011 End: 09-29-2013 PREMARIN 0.625 MG/GM CREA 2 gram apply vaginally three times a week x 2 wks, then once a week ESTROGENS, CONJUGATED [id number] Butch Hogue MD Start: 09-18-2011 PREMARIN 0.625 MG/GM CREA 2 gram apply vaginally three times a week x 2 wks, then once a week ESTROGENS, CONJUGATED [id number] Butch Hogue MD levoFLOXacin 500 mg oral tablet (6 sources) Quinolone Antimicrobial Start: 02-11-2013 End: 03-18-2013 take 1 tablet by mouth once daily LEVAQUIN 500 MG TABS One tablet by mouth daily LEVOFLOXACIN [id number] Butch Hogue MD LORazepam 0.5 mg oral tablet (6 sources) Benzodiazepine Start: 05-17-2012 End: 09-29-2013 take 1 tablet by mouth three times daily as needed LORAZEPAM 0.5 MG TABS One tablet by mouth three times daily as needed, avoid driving or operating machine under the influence of medication. LORAZEPAM [id number] Butch Hogue MD meloxicam 15 mg oral tablet (6 sources) Nonsteroidal Anti-inflammatory Drug Start: 07-19-2010 End: 12-17-2012 take 1 tablet by mouth once daily MOBIC 15 MG TABS One tablet by mouth daily MELOXICAM [id number] Butch Hogue MD mometasone furoate 0.05 mg/actuat metered dose nasal spray (6 sources) Corticosteroid Start: 03-18-2013 End: 09-29-2013 NASONEX 50 MCG/ACT SUSP 2 spray/nsotril daily MOMETASONE FUROATE [id number] Butch Hogue MD Start: 03-18-2013 End: 09-29-2013 NASONEX 50 MCG/ACT SUSP 2 sp ray/nsotril daily MOMETASONE FUROATE [id number] Butch Hogue MD Start: 03-18-2013 NASONEX 50 MCG /ACT SUSP 2 spray/nsotril daily MOMETASONE FUROATE [id number] Butch Hogue MD naproxen 500 mg oral tablet (3 sources) Nonsteroidal Anti-inflammatory Drug Start: 11-05-2015 End: 11-12-2015 take 1 tablet by mouth twice daily NAPROSYN 500 MG TABS One tablet by mouth twice daily NAPROXEN [id number] Adriano Patel DO nitrofurantoin, macrocrystals 25 mg / nitrofurantoin, monohydrate 75 mg oral capsule (6 sources) Nitrofuran Antibacterial Start: 04-17-2014 End: 04-24-2014 take 1 tablet by mouth twice daily NITROFURANTOIN MACROCRYSTAL 100 MG CAPS One tablet by mouth twice daily NITROFURANTOIN MACROCRYSTAL [id number] Butch Hogue MD Start: 01-06-2013 End: 01-13-2013 take 1 tablet by mouth twice daily NITROFURANTOIN MACROCRYSTAL 100 MG CAPS One tablet by mouth twice daily NITROFURANTOIN MACROCRYSTAL [id number] Butch Hogue MD OMEGA-3 FATTY ACIDS (2 sources) Start: 04-12-2015 FISH OIL CONCENTRATE 1000 MG CAPS 2-4 capsules per day OMEGA-3 FATTY ACIDS [id number] Adriano Patel DO OMEGA-3 FATTY ACIDS (1 source) Start: 04-12-2015 FISH OIL CONCENTRATE 1000 MG CAPS 2-4 capsules per day OMEGA-3 FATTY ACIDS [id number] Adriano Patel DO omeprazole 40 mg delayed release oral capsule (6 sources) Proton Pump Inhibitor Start: 03-29-2015 End: 06-07-2015 take 1 capsule by mouth once daily OMEPRAZOLE 40 MG CPDR 1 capsule by mouth daily OMEPRAZOLE [id number] Adriano Patel DO oseltamivir 75 mg oral capsule (4 sources) Neuraminidase Inhibitor Start: 09-13-2019 End: 09-18-2019 take 1 capsule by mouth twice daily Oseltamivir 75 mg capsule Discontinued 75 mg PO TWICE A DAY 10 5 0 September 13, 2019 1:00am September 17, 2019 1:00am September 18, 2019 1:08am polymyxin b 38299 unt/ml / trimethoprim 1 mg/ml ophthalmic solution (3 sources) Dihydrofolate Reductase Inhibitor Antibacterial, Polymyxin-class Antibacterial Start: 07-04-2011 End: 07-14-2011 POLYMYXIN B-TRIMETHOPRIM 51680-3.1 UNIT/ML-% SOLN 1 gtt each eye every 3hr while awake POLYMYXIN B-TRIMETHOPRIM [id number] Butch Hogue MD promethazine hydrochloride 25 mg oral tablet (12 sources) Phenothiazine Start: 07-04-2013 End: 09-29-2013 take 1 tablet by mouth every six hours as needed for nausea PROMETHAZINE HCL 25 MG TABS one tablet by mouth every 6hr as needed nausea/vomiting PROMETHAZINE HCL [id number] Butch Hogue MD Start: 07-04-2011 End: 09-18-2011 PROMETHAZINE HCL 12.5 MG TAB S one every 8hr as needed nausea PROMETHAZINE HCL [id number] Butch Hogue MD raNITIdine 150 mg oral tablet (6 sources) Histamine-2 Receptor Antagonist End: 12-20-2009 take 1 tablet by mouth twice daily ZANTAC 150 MG TABS One tablet by mouth twice a day RANITIDINE HCL [id number] Melania Connell MA Problems Active Problems Problem Classification Problem Date Documented Date Episodic/Chronic Adjustment disorders (6 sources) Adjustment disorder; Translations: [Adjustment disorder, unspecified] Onset: 12-17-2012 Resolved: 03-30-2014 12-17-2012 Chronic Administrative/social admission (4 sources) Patient encounter status; Translations: [Encounter for pre-employment examination] 11-09-2021 Episodic Anxiety disorders (3 sources) Generalized anxiety disorder; Translations: [Generalized anxiety disorder] Onset: 12-20-2009 12-20-2009 Chronic Coronary atherosclerosis and other heart disease (1 source) Atherosclerotic heart disease of [place] coronary artery without angina pectoris; Translations: [Atherosclerotic heart disease of [place] coronary artery without angina pectoris] Onset: 02-20-2025 Chronic Disorders of lipid metabolism (3 sources) Hypertriglyceridemia; Translations: [Pure hyperglyceridemia] Onset: 03-29-2015 03-29-2015 Chronic Esophageal disorders (3 sources) Gastroesophageal reflux disease; Translations: [Gastro-esophageal reflux disease without esophagitis] Onset: 07-16-2002 12-07-2009 Chronic Essential hypertension (1 source) Essential (primary) hypertension; Translations: [Essential (primary) hypertension] Onset: 08-08-2024 Chronic Influenza (4 sources) Influenza; Translations: [Influenza due to unidentified influenza virus with other respiratory manifestations] 09-13-2019 Episodic Menopausal disorders (3 sources) Atrophic vaginitis; Translations: [Postmenopausal atrophic vaginitis] Onset: 09-18-2011 09-18-2011 Chronic Osteoarthritis (3 sources) Osteoarthritis; Translations: [Unspecified osteoarthritis, unspecified site] Onset: 07-19-2010 07-19-2010 Chronic Other nutritional; endocrine; and metabolic disorders (3 sources) Obesity; Translations: [Obesity, unspecified] Onset: 12-20-2009 12-20-2009 Chronic Other screening for suspected conditions (not mental disorders or infectious disease) (2 sources) Encounter for screening mammogram for malignant neoplasm of breast; Translations: [Encounter for screening for malignant neoplasm of cervix] Onset: 03-20-2024 Episodic Screening or history of mental health and substance abuse (3 sources) Tobacco user; Translations: [Tobacco use] Onset: 03-29-2015 03-29-2015 Chronic Thyroid disorders (1 source) Hypothyroidism, unspecified; Translations: [Hypothyroidism, unspecified] Onset: 07-21-2024 Chronic Unclassified (3 sources) Sleep apnea; Translations: [Sleep apnea, unspecified] Onset: 03-18-2013 03-18-2013 Chronic Unclassified (2 sources) Screening mammography ; Translations: [Encounter for other screening for malignant neoplasm of breast] Onset: 12-07-2009 12-07-2009 Urinary tract infections (10 sources) Acute urinary tract infection; Translations: [Urinary tract infectious disease] Onset: 01-06-2013 Resolved: 02-07-2013 02-07-2013 Episodic Viral infection (4 sources) Disease caused by 2019-nCoV; Translations: [COVID-19] 11-09-2021 Episodic Past or Other Problems Problem Classification Problem Date Documented Date Episodic/Chronic Acute bronchitis (12 sources) Acute bronchitis; Translations: [Acute bronchitis, unspecified] Onset: 02-23-2010 Resolved: 09-29-2013 09-29-2013 Episodic Disorders of teeth and jaw (6 sources) Acute gingivitis, plaque induced; Translations: [Acute gingivitis, plaque induced] Onset: 09-15-2010 Resolved: 09-18-2011 09-15-2010 Episodic Inflammation, infection of eye (6 sources) Acute conjunctivitis; Translations: [Unspecified acute conjunctivitis, unspecified eye] Onset: 07-04-2011 Resolved: 09-18-2011 09-18-2011 Episodic Medical examination/evaluatio n (2 sources) Encounter for general adult medical examination without abnormal findings; Translations: [Encounter for general adult medical examination without abnormal findings] Onset: 12-20-2009 12-20-2009 Episodic Noninfectious gastroenteritis (6 sources) Gastroenteritis; Translations: [Noninfective gastroenteritis and colitis, unspecified] Onset: 07-04-2013 Resolved: 09-29-2013 07-04-2013 Episodic Other lower respiratory disease (3 sources) Chest wall pain; Translations: [Other chest pain] Onset: 11-05-2015 Resolved: 11-12-2015 11-05-2015 Episodic Other upper respiratory infections (18 sources) Acute sinusitis; Translations: [Acute upper respiratory infection] Onset: 07-04-2011 Resolved: 03-30-2014 01-09-2014 Episodic Residual codes; unclassified (1 source) Family history of malignant neoplasm of breast; Translations: [Family history of malignant neoplasm of breast] 01-09-2014 Episodic Residual codes; unclassified (1 source) FH: premature coronary heart disease; Translations: [Family history of ischemic heart disease and other diseases of the circulatory system] Onset: 09-18-2011 09-18-2011 Episodic Residual codes; unclassified (1 source) Family history of alcoholism; Translations: [Alcoholism and drug addiction in family] 01-09-2014 Episodic Superficial injury; contusion (3 sources) Contusion of left shoulder, initial encounter; Translations: [Contusion of left shoulder, initial encounter] Onset: 12-19-2016 12-19-2016 Episodic Unclassified (12 sources) FH: Diabetes mellitus; Translations: [Family history of malignant neoplasm of breast] Onset: 09-18-2011 09-18-2011 Episodic Results Test Name Value Interpretation Reference Range Facility Anion gap in Serum or Plasma Ordered By: Adriano Patel on 02-19-2025 Anion gap [Moles/Vol] 15 mmol/L 11-27 [facility] BUN/creatinine ratioOrdered By: Adriano Patel on 02-19-2025 Urea nitrogen/Creatinine [Mass ratio] 14.3 mg/mg 05-04 [facility] Basic Metabolic Profile (BMP )on 02-19-2025 BUN/CRE 14.3 RATIO Normal 05-04 [facility] Comment on above: Performed By: #### L 500.2500, L503.7505 #### [facility] [address] [place], [address] Calcium [Mass/Vol] 9.2 mg/dL Normal 7.6-11.0 [facility] Comment on above: Performed By: #### L 500.2500, L503.7505 #### [facility] [address] [place], [address] Chloride [Moles/Vol] 83 mmol/L Low 98-108 [facility] Comment on above: Performed By: #### L 500.2500, L503.7505 #### [facility] [address] [place], [address] CO2 [Moles/Vol] 29.4 mmol/L Normal 21.0-32.0 [facility] Comment on above: Performed By: #### L 500.2500, [id number] #### [facility] [address] [place], [address] Creatinine [Mass/Vol] 0.82 mg/dL Normal 0.70-1.20 [facility] Comment on above: Performed By: #### L 500.2500, [id number] #### [facility] [address] [place], [address] GAP 15 Normal 5-15 [facility] Comment on above: Performed By: #### L 500.2500, [id number] #### [facility] [address] [place], [address] GFR/1.73 sq M.predicted among non-blacks MDRD (S/P/Bld) [Vol rate/Area] 80 mL/min/{1.73_m2} Normal >60 [facility] Comment on above: Result Comment: mL/m in/1.73m2 CKD-EPI Creatinine Equation (2020) Performed By: #### L 500.2500, L503.7505 #### [facility] [address] [place], [address] Glucose [Mass/Vol] 120 mg/dL High 70-99 [facility] Comment on above: Performed By: #### L 500.2500, [id number] #### [facility] [address] [place], [address] Potassium [Moles/Vol] 4.5 mmol/L Normal 3.3-5.1 [facility] Comment on above: Performed By: #### L 500.2500, [id number] #### [facility] [address] [place], [address] Sodium [Moles/Vol] 127 mmol/L Low 133-145 [facility] Comment on above: Performed By: #### L 500.2500, [id number] #### [facility] [address] [place], [address] Urea nitrogen [Mass/Vol] 12 mg/dL Normal 4-19 [facility] Comment on above: Performed By: #### L 500.2500, [id number] #### [facility] [address] [place], [address] Carbon dioxide, total [Moles /volume] in Central venous bloodOrdered By: Adriano Patel on 02-19-2025 CO2 [Moles/Vol] 29.4 mmol/L 21.0-32.0 [facility] Chloride assayOrdered By: Liliana Patel on 02-19-2025 Chloride [Moles/Vol] 83 mmol/L Low 98-108 [facility] Glomerular filtration rate ( GFR) estimation/1.73 sq m using serum, plasma, or whole bOrdered By: Adriano Patel on 02-19-2025 GFR/1.73 sq M.predicted among non-blacks MDRD (S/P/Bld) [Vol rate/Area] 80 mL/min/{1.73_m2} >60 [facility] [facility] Comment on above: mL/min/1.73m2 CKD-EP I Creatinine Equation (2020) Natriuretic peptide.B prohor jacqui N-Terminal [Mass/volume] in Serum or PlasmaOrdered By: Adriano Patel on 02-19-2025 Natriuretic peptide.B prohormone N-Terminal [Mass/Vol] 4948 pg/mL High <900 [facility] Comment on above: Heart Failure Unlike ly: < 300 pg/mLHeart Failure Likely< 50 Years: > 450 pg/mL50-75 Years: > 900 pg/mL>75 Years: > 1800 pg/mL Potassium measurement (mass/ volume)Ordered By: Adriano Patel on 02-19-2025 Potassium (Unsp spec) [Mass/Vol] 4.5 mmol/L 3.3-5.1 [facility] Pro- Brain NATRIURETIC PEPTI Aldo 02-19-2025 Natriuretic peptide B (Bld) [Mass/Vol] 4948 pg/mL High <=900 [facility] Comment on above: Result Comment: Hear t Failure Unlikely: < 300 pg/mL Heart Failure Likely < 50 Years: > 450 pg/mL 50-75 Years: > 900 pg/mL >75 Years: > 1800 pg/mL Performed By: #### L 500.2500, [id number] #### [facility] [address] [place], [address] Serum creatinine measurement (mass/volume)Ordered By: Adriano Patel on 02-19-2025 Creatinine [Mass/Vol] 0.82 mg/dL 0.70-1.20 [facility] Serum glucose measurement (m ass/volume)Ordered By: Adriano Patel on 02-19-2025 Glucose [Mass/Vol] 120 mg/dL High 70-99 [facility] Serum or plasma calcium tamy urement (mass/volume)Ordered By: Adriano Patel on 02-19-2025 Calcium [Mass/Vol] 9.2 mg/dL 7.6-11.0 [facility] Serum or plasma urea nitroge n measurement (mass/volume)Ordered By: Adriano Patel on 02-19-2025 Urea nitrogen [Mass/Vol] 12 mg/dL 4-19 [facility] Sodium levelOrdered By: Adriano Patel on 02-19-2025 Sodium [Moles/Vol] 127 mmol/L Low 133-145 [facility] Absolute lymphocyte countOrd ered By: Adriano Patel on 02-12-2025 Lymphocytes Auto (Unsp spec) [#/Vol] 1.94 10*3/uL 0.83-4.51 [facility] Absolute neutrophil countOrd ered By: Adriano Patel on 02-12-2025 Neutrophils (Bld) [#/Vol] 5.6 10*3/uL 2.0-7.7 [facility] Anion gap in Serum or Plasma Ordered By: Adriano Patel on 02-12-2025 Anion gap [Moles/Vol] 11 mmol/L 5- [facility] Automated lymphocyte count a s percentage of total leukocytesOrdered By: Adriano Patel on 02-12-2025 Lymphocytes/100 WBC Auto (Unsp spec) 22.7 % 19- [facility] BUN/creatinine ratioOrdered By: Adriano Patel on 02-12-2025 Urea nitrogen/Creatinine [Mass ratio] 13.0 mg/mg 10- [facility] Basophil percentageOrdered B y: Adriano Patel on 02-12-2025 Basophils/100 WBC (Bld) 0.6 % 0-1 [facility] Bilirubin, totalOrdered By: Adriano Patel on 02-12-2025 Bilirubin [Mass/Vol] 0.57 mg/dL 0.00-1.30 [facility] CBC W/Diff, Automatedon 01-15 Absolute Lymph 1.94 X10 3/uL Normal 0.83-4.51 [facility] Comment on above: Performed By: #### L 100.0100, L506.0400, L500.4050, L501.9520, L503.7505 #### [facility] [address] [place], [place], [id number] Absolute Neut 5.6 X10 3/uL Normal 2.0-7.7 [facility] Comment on above: Performed By: #### L 100.0100, L506.0400, L500.4050, L501.9520, L503.7505 #### [facility] [address] [place], [address] Basophils/100 WBC (Bld) 0.6 % Normal 0-1 [facility] Comment on above: Performed By: #### L 100.0100, L506.0400, L500.4050, L501.9520, L503.7505 #### [facility] [address] [place], [address] Eosinophils/100 WBC (Bld) 0.1 % Normal 0-5 [facility] Comment on above: Performed By: #### L 100.0100, L506.0400, L500.4050, L501.9520, L503.7505 #### [facility] [address] [place], [address] Erythrocyte distribution width (RBC) [Ratio] 14.6 % Normal 11.6-14.6 [facility] Comment on above: Performed By: #### L 100.0100, L506.0400, L500.4050, L501.9520, L503.7505 #### [facility] [address] [place], [address] Hematocrit (Bld) [Volume fraction] 44.4 % Normal 37-47 [facility] Comment on above: Performed By: #### L 100.0100, L506.0400, L500.4050, L501.9520, L503.7505 #### [facility] [address] [place], [address] Hemoglobin (Bld) [Mass/Vol] 14.1 g/dL Normal 12.0-15.0 [facility] Comment on above: Performed By: #### L 100.0100, L506.0400, L500.4050, L501.9520, L503.7505 #### [facility] [address] [place], [address] IG% 0.400 Normal 0.0-0.9 [facility] Comment on above: Result Comment: IG% - Immature Granulocytes (promyelocytes, myelocytes and metamyelocytes) > 1% indicates that a LEFT SHIFT is Present. Performed By: #### L 100.0100, L506.0400, L500.4050, L501.9520, L503.7505 #### [facility] [address] [place], [address] Lymphocytes/100 WBC (Bld) 22.7 % Normal 19-41 [facility] Comment on above: Performed By: #### L 100.0100, L506.0400, L500.4050, L501.9520, L503.7505 #### [facility] [address] [place], [address] MCH (RBC) [Entitic mass] 28.3 pg Normal 27.0-32.0 [facility] Comment on above: Performed By: #### L 100.0100, L506.0400, L500.4050, L501.9520, L503.7505 #### [facility] [address] [place], [address] MCHC (RBC) [Mass/Vol] 31.8 g/dL Low 32-36 [facility] Comment on above: Performed By: #### L 100.0100, L506.0400, L500.4050, L501.9520, L503.7505 #### [facility] [address] [place], [address] MCV (RBC) [Entitic vol] 89.2 fL Normal 81-99 [facility] Comment on above: Performed By: #### L 100.0100, L506.0400, L500.4050, L501.9520, L503.7505 #### [facility] [address] [place], [address] Monocytes/100 WBC (Bld) 10.3 % High 0-10 [facility] Comment on above: Performed By: #### L 100.0100, L506.0400, L500.4050, L501.9520, L503.7505 #### [facility] [address] [place], [address] Neutrophils/100 WBC (Bld) 65.9 % Normal 47-70 [facility] Comment on above: Performed By: #### L 100.0100, L506.0400, L500.4050, L501.9520, L503.7505 #### [facility] [address] [place], [address] Nucleated RBC (Bld) [#/Vol] 0 10*3/uL Normal 0-5 [facility] Comment on above: Performed By: #### L 100.0100, L506.0400, L500.4050, L501.9520, L503.7505 #### [facility] [address] [place], [address] Platelet mean volume (Bld) [Entitic vol] 10.5 fL Normal 6.2-12.0 [facility] Comment on above: Performed By: #### L 100.0100, L506.0400, L500.4050, L501.9520, L503.7505 #### [facility] [address] [place], [address] Platelets (Bld) [#/Vol] 234 10*3/uL Normal 150-450 [facility] Comment on above: Performed By: #### L 100.0100, L506.0400, L500.4050, L501.9520, L503.7505 #### [facility] [address] [place], [address] RBC (Bld) [#/Vol] 4.98 10*6/uL Normal 4.2-5.4 [facility] Comment on above: Performed By: #### L 100.0100, L506.0400, L500.4050, L501.9520, L503.7505 #### [facility] [address] [place], [address] RDW SD 47.7 fl High 35.1-43.9 [facility] Comment on above: Performed By: #### L 100.0100, L506.0400, L500.4050, L501.9520, L503.7505 #### [facility] [address] [place], [address] WBC (Bld) [#/Vol] 8.6 10*3/uL Normal 4.4-11.0 [facility] Comment on above: Performed By: #### L 100.0100, L506.0400, L500.4050, L501.9520, L503.7505 #### [facility] [address] [place], [address] Carbon dioxide, total [Moles /volume] in Central venous bloodOrdered By: Adriano Patel on 02-12-2025 CO2 [Moles/Vol] 27.2 mmol/L 21.0-32.0 [facility] Chloride assayOrdered By: Liliana Patel on 02-12-2025 Chloride [Moles/Vol] 92 mmol/L Low 98-108 [facility] Comprehensive Metabolic Prof ilon 02-12-2025 Albumin [Mass/Vol] 3.9 g/dL Normal 3.4-4.8 [facility] Comment on above: Performed By: #### L 100.0100, L506.0400, L500.4050, L501.9520, L503.7505 #### [facility] [address] [place], [address] Albumin/Globulin [Mass ratio] 1.2 {ratio} Normal 0.9-2.4 [facility] Comment on above: Performed By: #### L 100.0100, L506.0400, L500.4050, L501.9520, L503.7505 #### [facility] [address] [place], [address] ALK PHOS 101 U/L Normal 35-104 [facility] Comment on above: Performed By: #### L 100.0100, L506.0400, L500.4050, L501.9520, L503.7505 #### [facility] [address] [place], [address] ALT [Catalytic activity/Vol] 38 U/L High <=34 [facility] Comment on above: Performed By: #### L 100.0100, L506.0400, L500.4050, L501.9520, L503.7505 #### [facility] [address] [place], [address] AST [Catalytic activity/Vol] 34 U/L High <=31 [facility] Comment on above: Performed By: #### L 100.0100, L506.0400, L500.4050, L501.9520, L503.7505 #### [facility] [address] [place], [address] Bilirubin [Mass/Vol] 0.57 mg/dL Normal 0.00-1.30 [facility] Comment on above: Performed By: #### L 100.0100, L506.0400, L500.4050, L501.9520, L503.7505 #### [facility] [address] [place], [address] BUN/CRE 13.0 RATIO Normal 10-20 [facility] Comment on above: Performed By: #### L 100.0100, L506.0400, L500.4050, L501.9520, L503.7505 #### [facility] [address] [place], [address] Calcium [Mass/Vol] 9.1 mg/dL Normal 7.6-11.0 [facility] Comment on above: Performed By: #### L 100.0100, L506.0400, L500.4050, L501.9520, L503.7505 #### [facility] [address] [place], [address] Chloride [Moles/Vol] 92 mmol/L Low 98-108 [facility] Comment on above: Performed By: #### L 100.0100, L506.0400, L500.4050, L501.9520, L503.7505 #### [facility] [address] [place], [address] CO2 [Moles/Vol] 27.2 mmol/L Normal 21.0-32.0 [facility] Comment on above: Performed By: #### L 100.0100, L506.0400, L500.4050, L501.9520, L503.7505 #### [facility] [address] [place], [address] Creatinine [Mass/Vol] 0.76 mg/dL Normal 0.70-1.20 [facility] Comment on above: Performed By: #### L 100.0100, L506.0400, L500.4050, L501.9520, L503.7505 #### [facility] [address] [place], [address] GAP 11 Normal 5-15 [facility] Comment on above: Performed By: #### L 100.0100, L506.0400, L500.4050, L501.9520, L503.7505 #### [facility] [address] [place], [address] GFR/1.73 sq M.predicted among non-blacks MDRD (S/P/Bld) [Vol rate/Area] 87 mL/min/{1.73_m2} Normal >60 [facility] Comment on above: Result Comment: mL/m in/1.73m2 CKD-EPI Creatinine Equation (2020) Performed By: #### L 100.0100, L506.0400, L500.4050, L501.9520, L503.7505 #### [facility] [address] [place], [address] Globulin (S) [Mass/Vol] 3.2 g/dL Normal 2.2-4.2 [facility] Comment on above: Performed By: #### L 100.0100, L506.0400, L500.4050, L501.9520, L503.7505 #### [facility] [address] [place], [address] Glucose [Mass/Vol] 105 mg/dL High 70-99 [facility] Comment on above: Performed By: #### L 100.0100, L506.0400, L500.4050, L501.9520, L503.7505 #### [facility] [address] [place], [address] Potassium [Moles/Vol] 4.1 mmol/L Normal 3.3-5.1 [facility] Comment on above: Performed By: #### L 100.0100, L506.0400, L500.4050, L501.9520, L503.7505 #### [facility] [address] [place], [address] Sodium [Moles/Vol] 130 mmol/L Low 133-145 [facility] Comment on above: Performed By: #### L 100.0100, L506.0400, L500.4050, L501.9520, L503.7505 #### [facility] [address] [place], [address] T PROT 7.1 g/dL Normal 5.9-8.4 [facility] Comment on above: Performed By: #### L 100.0100, L506.0400, L500.4050, L501.9520, L503.7505 #### [facility] [address] [place], [address] Urea nitrogen [Mass/Vol] 10 mg/dL Normal 4-19 [facility] Comment on above: Performed By: #### L 100.0100, L506.0400, L500.4050, L501.9520, L503.7505 #### [facility] [address] [place], [address] Eosinophil percentageOrdered By: Adriano Patel on 02-12-2025 Eosinophils/100 WBC (Bld) 0.1 % 0-5 [facility] Erythrocyte distribution wid th ratioOrdered By: Adriano Patel on 02-12-2025 Erythrocyte distribution width (RBC) [Ratio] 14.6 % 11.6-14.6 [facility] Erythrocyte distribution wid th standard deviationOrdered By: Adriano Patel on 02-12-2025 Erythrocyte distribution width (RBC) [Ratio] 47.7 fl High 35.1-43.9 [facility] Glomerular filtration rate ( GFR) estimation/1.73 sq m using serum, plasma, or whole bOrdered By: Adriano Patel on 02-12-2025 GFR/1.73 sq M.predicted among non-blacks MDRD (S/P/Bld) [Vol rate/Area] 87 mL/min/{1.73_m2} >60 [facility] Comment on above: mL/min/1.73m2 CKD-EP I Creatinine Equation (2020) Hematocrit Auto (Bld) [Volum e fraction]Ordered By: Adriano Patel on 02-12-2025 Hematocrit (Bld) [Volume fraction] 44.4 % 37-47 [facility] Hemoglobin measurementOrdere d By: Adriano Patel on 02-12-2025 Hemoglobin (Bld) [Mass/Vol] 14.1 g/dL 12.0-15.0 [facility] Immature granulocytes/100 WB C Auto (Bld)Ordered By: Adriano Patel on 02-12-2025 Immature granulocytes/100 WBC (Bld) 0.400 % 0.0-0.9 [facility] Comment on above: IG% - Immature Granu locytes (promyelocytes, myelocytes and metamyelocytes) > 1% indicates that a LEFT SHIFT is Present. Laboratory - Chemistry and C hemistry - challengeOrdered By: Adriano Patel on 02-12-2025 AST [Catalytic activity/Vol] 34 U/L High <32 [facility] MCV (mean corpuscular volume ) determinationOrdered By: Adriano Patel on 02-12-2025 MCV (RBC) [Entitic vol] 89.2 fL 81-99 [facility] Mean corpuscular hemoglobin (MCH) determinationOrdered By: Adriano Patel on 02-12-2025 MCH (RBC) [Entitic mass] 28.3 pg 27.0-32.0 [facility] Mean corpuscular hemoglobin concentration (MCHC) determinationOrdered By: Adriano Patel on 02-12-2025 MCHC (RBC) [Mass/Vol] 31.8 g/dL Low 32-36 [facility] Mean platelet volume determi nationOrdered By: Adriano Patel on 02-12-2025 Platelet mean volume (Bld) [Entitic vol] 10.5 fL 6.2-12.0 [facility] Monocyte percentageOrdered B y: Adriano Patel on 02-12-2025 Monocytes/100 WBC (Bld) 10.3 % High 0-10 [facility] Natriuretic peptide.B prohor jacqui N-Terminal [Mass/volume] in Serum or PlasmaOrdered By: Adriano Patel on 02-12-2025 Natriuretic peptide.B prohormone N-Terminal [Mass/Vol] 4180 pg/mL High <900 [facility] Comment on above: Heart Failure Unlike ly: < 300 pg/mLHeart Failure Likely< 50 Years: > 450 pg/mL50-75 Years: > 900 pg/mL>75 Years: > 1800 pg/mL Neutrophil percentageOrdered By: Adriano Patel on 02-12-2025 Neutrophils/100 WBC (Bld) 65.9 % 47-70 [facility] Nucleated red blood cell per centageOrdered By: Adriano Patel on 02-12-2025 Nucleated RBC/100 WBC (Bld) [Ratio] 0 % 0-5 [facility] Platelet countOrdered By: Liliana Patel on 02-12-2025 Platelets (Bld) [#/Vol] 234 10*3/uL 150-450 [facility] Potassium measurement (mass/ volume)Ordered By: Adriano Patel on 02-12-2025 Potassium (Unsp spec) [Mass/Vol] 4.1 mmol/L 3.3-5.1 [facility] Pro- Brain NATRIURETIC PEPTI Aldo 02-12-2025 Natriuretic peptide B (Bld) [Mass/Vol] 4180 pg/mL High <=900 [facility] Comment on above: Result Comment: Hear t Failure Unlikely: < 300 pg/mL Heart Failure Likely < 50 Years: > 450 pg/mL 50-75 Years: > 900 pg/mL >75 Years: > 1800 pg/mL Performed By: #### L 500.2500, L503.7505 #### [facility] [address] [place] [address], [address] RBC Auto (Bld) [#/Vol]Ordere d By: Adriano Patel on 02-12-2025 RBC (Bld) [#/Vol] 4.98 10*6/uL 4.2-5.4 [facility] Serum creatinine measurement (mass/volume)Ordered By: Adriano Patel on 02-12-2025 Creatinine [Mass/Vol] 0.76 mg/dL 0.70-1.20 [facility] Serum globulin measurementOr dered By: Adriano Patel on 02-12-2025 Globulin (S) [Mass/Vol] 3.2 g/dL 2.2-4.2 [facility] Serum glucose measurement (m ass/volume)Ordered By: Adriano Patel on 02-12-2025 Glucose [Mass/Vol] 105 mg/dL High 70-99 [facility] Serum or plasma alanine ruano otransferase (ALT) measurementOrdered By: Adriano Patel on 02-12-2025 ALT [Catalytic activity/Vol] 38 U/L High <35 [facility] Serum or plasma albumin tamy urement (mass/volume)Ordered By: Adriano Patel on 02-12-2025 Albumin [Mass/Vol] 3.9 g/dL 3.4-4.8 [facility] Serum or plasma albumin/glob ulin mass ratioOrdered By: Adriano Patel on 02-12-2025 Albumin/Globulin [Mass ratio] 1.2 {ratio} 0.9-2.4 [facility] Serum or plasma alkaline carolyn sphatase measurementOrdered By: Adriano Patel on 02-12-2025 ALP [Catalytic activity/Vol] 101 U/L 35-104 [facility] Serum or plasma calcium tamy urement (mass/volume)Ordered By: Adriano Patel on 02-12-2025 Calcium [Mass/Vol] 9.1 mg/dL 7.6-11.0 [facility] Serum or plasma urea nitroge n measurement (mass/volume)Ordered By: Adriano Patel on 02-12-2025 Urea nitrogen [Mass/Vol] 10 mg/dL 4-19 [facility] Sodium levelOrdered By: Adriano Patel on 02-12-2025 Sodium [Moles/Vol] 130 mmol/L Low 133-145 [facility] T4 Free Directon 02-12-2025 T4 FREE DIRECT 1.80 ng/dL High 0.76-1.46 [facility] Comment on above: Performed By: #### L 500.2500, L503.0674 #### [facility] [address] [place] [address], [id number] T4 freeOrdered By: Adriano chris on 02-12-2025 Free T4 [Mass/Vol] 1.80 ng/dL High 0.76-1.46 [facility] TSH DL <= 0.005 mIU/L QnOrde red By: Adriano Patel on 02-12-2025 TSH Qn 0.623 uIU/mL 0.300-4.200 [facility] Thyroid Stim Hormone (TSH)on 02-12-2025 TSH 0.623 uIU/mL Normal 0.300-4.200 [facility] Comment on above: Performed By: #### L 100.0100, L506.0400, L500.4050, L501.9520, L503.7505 #### [facility] [address] [place], [address] Total proteinOrdered By: Mariajose montiel Jorge on 02-12-2025 Protein [Mass/Vol] 7.1 g/dL 5.9-8.4 [facility] White blood cell (WBC) count Ordered By: Adriano Jorge on 02-12-2025 WBC (Bld) [#/Vol] 8.6 10*3/uL 4.4-11.0 [facility] Comprehensive Metabolic Prof ilon 07-14-2024 Albumin [Mass/Vol] 3.7 g/dL Normal 3.2-5.0 [facility] Comment on above: Performed By: #### L 501.9520, L500.4050, L506.0400, L500.4100 #### [facility] [address] [place], [address] Albumin/Globulin [Mass ratio] 0.8 {ratio} Low 0.9-2.4 [facility] Comment on above: Performed By: #### L 501.9520, L500.4050, L506.0400, L500.4100 #### [facility] [address] [place], [address] ALK P 95 U/L Normal 45-117 [facility] Comment on above: Performed By: #### L 501.9520, L500.4050, L506.0400, L500.4100 #### [facility] [address] [place], [address] ALT [Catalytic activity/Vol] 22 U/L Normal 13-56 [facility] Comment on above: Performed By: #### L 501.9520, L500.4050, L506.0400, L500.4100 #### [facility] [address] [place], [address] AST [Catalytic activity/Vol] 16 U/L Normal 15-37 [facility] Comment on above: Performed By: #### L 501.9520, L500.4050, L506.0400, L500.4100 #### [facility] [address] [place], [address] Bilirubin [Mass/Vol] 0.40 mg/dL Normal 0.20-1.00 [facility] Comment on above: Result Comment: For patients on eltrombopag therapy, use of Dimension Brock TBIL is not recommended. Performed By: #### L 501.9520, L500.4050, L506.0400, L500.4100 #### [facility] [address] [place], [address] BUN/CRE 12.2 RATIO Normal 10-20 [facility] Comment on above: Performed By: #### L 501.9520, L500.4050, L506.0400, L500.4100 #### [facility] [address] [place], [address] CA,Total 9.4 mg/dL Normal 8.5-10.1 [facility] Comment on above: Performed By: #### L 501.9520, L500.4050, L506.0400, L500.4100 #### [facility] [address] [place], [address] Chloride [Moles/Vol] 95 mmol/L Low 98-107 [facility] Comment on above: Performed By: #### L 501.9520, L500.4050, L506.0400, L500.4100 #### [facility] [address] [place], [address] CO2 [Moles/Vol] 27.0 mmol/L Normal 21.0-32.0 [facility] Comment on above: Performed By: #### L 501.9520, L500.4050, L506.0400, L500.4100 #### [facility] [address] [place], [address] Creatinine [Mass/Vol] 0.90 mg/dL Normal 0.55-1.02 [facility] Comment on above: Result Comment: The validity of the calculated GFR GFRAA in patients over 70 years has not been determined. Clinical correlation is essential. Performed By: #### L 501.9520, L500.4050, L506.0400, L500.4100 #### [facility] [address] [place], [address] EST GFR - AA 81 mL/min Normal >60 [facility] Comment on above: Result Comment: Afri can Peruvian GFR Calc Performed By: #### L 501.9520, L500.4050, L506.0400, L500.4100 #### [facility] [address] [place], [address] GAP 9 Normal 5-15 [facility] Comment on above: Performed By: #### L 501.9520, L500.4050, L506.0400, L500.4100 #### [facility] [address] [place], [address] GFR/1.73 sq M.predicted among non-blacks MDRD (S/P/Bld) [Vol rate/Area] 67 mL/min/{1.73_m2} Normal >60 [facility] Comment on above: Result Comment: Non- GFR Calc Performed By: #### L 501.9520, L500.4050, L506.0400, L500.4100 #### [facility] [address] [place], [address] Globulin (S) [Mass/Vol] 4.6 g/dL High 2.2-4.2 [facility] Comment on above: Performed By: #### L 501.9520, L500.4050, L506.0400, L500.4100 #### [facility] [address] [place], [address] Glucose [Mass/Vol] 110 mg/dL High 74-106 [facility] Comment on above: Result Comment: Fast ing Glucose result from 100 to 125 mg/dL suggests IMPAIRED HOMEOSTASIS per A.D.A. criteria. Performed By: #### L 501.9520, L500.4050, L506.0400, L500.4100 #### [facility] [address] [place], [address] Potassium [Moles/Vol] 4.1 mmol/L Normal 3.5-5.1 [facility] Comment on above: Performed By: #### L 501.9520, L500.4050, L506.0400, L500.4100 #### [facility] [address] [place], [address] Sodium [Moles/Vol] 131 mmol/L Low 136-145 [facility] Comment on above: Performed By: #### L 501.9520, L500.4050, L506.0400, L500.4100 #### [facility] [address] [place], [address] T PROT 8.3 g/dL High 6.4-8.2 [facility] Comment on above: Performed By: #### L 501.9520, L500.4050, L506.0400, L500.4100 #### [facility] [address] [place], [address] Urea nitrogen [Mass/Vol] 11 mg/dL Normal 7-18 [facility] Comment on above: Performed By: #### L 501.9520, L500.4050, L506.0400, L500.4100 #### [facility] [address] [place], [address] Lipid Profileon 07-14-2024 Cholesterol [Mass/Vol] 234 mg/dL High 200 [facility] Comment on above: Result Comment: <200 mg/dL Desirable 200-240 mg/dL Borderline >240 mg/dL High Risk Performed By: #### L 501.9520, L500.4050, L506.0400, L500.4100 #### [facility] [address] [place], [address] Cholesterol in HDL [Mass/Vol] 50 mg/dL Normal [facility] Comment on above: Result Comment: The drugs N-Acetylcysteine and Metamizole may falsely depress this assay. Reference Range HDL <40 mg/dL Low HDL Cholesterol HDL >or= 60 mg/dL High HDL Cholesterol Performed By: #### L 501.9520, L500.4050, L506.0400, L500.4100 #### [facility] [address] [place], [address] Cholesterol in LDL [Mass/Vol] 134 mg/dL High 0-130 [facility] Comment on above: Performed By: #### L 501.9520, L500.4050, L506.0400, L500.4100 #### [facility] [address] [place], [address] Cholesterol in VLDL [Mass/Vol] 50 mg/dL High 5-40 [facility] Comment on above: Performed By: #### L 501.9520, L500.4050, L506.0400, L500.4100 #### [facility] [address] [place], [address] Triglyceride [Mass/Vol] 252 mg/dL High [facility] Comment on above: Result Comment: The drugs N-Acetylcysteine and Metamizole may falsely depress this assay. Serum Triglycerides Reference Interval Normal <150 mg/dL Borderline high 150 - 199 mg/dL High 200 - 499 mg/dL Very High > or = 500 mg/dL Performed By: #### L 501.9520, L500.4050, L506.0400, L500.4100 #### [facility] [address] [place], [address] T4 Free Directon 07-14-2024 T4 FREE DIRECT 1.59 ng/dL High 0.76-1.46 [facility] Comment on above: Performed By: #### L 501.9520, L500.4050, L506.0400, L500.4100 #### [facility] [address] [place], [address] Thyroid Stim Hormone (TSH)on 07-14-2024 TSH 0.526 uIU/mL Normal 0.358-3.740 [facility] Comment on above: Performed By: #### L 501.9520, L500.4050, L506.0400, L500.4100 #### [facility] [address] [place], [address] PAP IG w/Reflex HPV GDLNon 0 03-02-2024 ADEQ Comment Normal . [facility] Comment on above: Order Comment: Speci men Comment: [id number] Specimen Comment: Source.............Cervix;Endocervix Specimen Comment: Other..............Post Menopausal;Other Specimen Comment: No. of containers..01 ThinPrep Vial Result Comment: Sati sfactory for evaluation. Endocervical and/or squamous metaplastic cells (endocervical component) are present. Performed By: #### L 7400.0290 #### [facility] [address] [place], [address] Age Gdln ACOG T 30-65 Normal . [facility] Comment on above: Order Comment: Speci men Comment: [id number] Specimen Comment: Source.............Cervix;Endocervix Specimen Comment: Other..............Post Menopausal;Other Specimen Comment: No. of containers..01 ThinPrep Vial Performed By: #### L 7400.0290 #### [facility] [address] [place], [place], [id number] COMM . Normal . [facility] Comment on above: Order Comment: Speci men Comment: [id number] Specimen Comment: Source.............Cervix;Endocervix Specimen Comment: Other..............Post Menopausal;Other Specimen Comment: No. of containers..01 ThinPrep Vial Performed By: #### L 7400.0290 #### [facility] [address] [place], [address] COMMENT Comment Normal . [facility] Comment on above: Order Comment: Speci men Comment: [id number] Specimen Comment: Source.............Cervix;Endocervix Specimen Comment: Other..............Post Menopausal;Other Specimen Comment: No. of containers..01 ThinPrep Vial Result Comment: This liquid based ThinPrep(R) pap test was screened with the use of an image guided system. Performed By: #### L 7400.0290 #### [facility] [address] [place], [place], [id number] DIAG Comment Normal . [facility] Comment on above: Order Comment: Speci men Comment: [id number] Specimen Comment: Source.............Cervix;Endocervix Specimen Comment: Other..............Post Menopausal;Other Specimen Comment: No. of containers..01 ThinPrep Vial Result Comment: NEGA TIVE FOR INTRAEPITHELIAL LESION OR MALIGNANCY. CELLULAR CHANGES ASSOCIATED WITH ATROPHY ARE PRESENT. Performed By: #### L 7400.0290 #### [facility] [address] [place], [address] HPV APTIMA, HR Negative Normal Negative [facility] Comment on above: Order Comment: Speci men Comment: [id number] Specimen Comment: Source.............Cervix;Endocervix Specimen Comment: Other..............Post Menopausal;Other Specimen Comment: No. of containers..01 ThinPrep Vial Result Comment: This nucleic acid amplification test detects fourteen high- risk HPV types (16,18,31,33,35,39,45,51,52,56,58,59,66,68) without differentiation. Performed By: #### L 7400.0290 #### [facility] [address] [place], [address] HPV Temi Rfx Comment Normal . [facility] Comment on above: Order Comment: Speci men Comment: [id number] Specimen Comment: Source.............Cervix;Endocervix Specimen Comment: Other..............Post Menopausal;Other Specimen Comment: No. of containers..01 ThinPrep Vial Result Comment: Crit eria not met, HPV Genotype not performed. Performed at: =[address] [id number] Sports Teacher: Katelyn Hendricks MD, Phone: [phone] Performed at: [address] [id number] Sports Teacher: Katelyn Hendricks MD, Phone: [phone] Performed By: #### L [id number] #### [facility] [address] [place], [address] PAPSMR Comment Normal . [facility] Comment on above: Order Comment: Speci men Comment: [id number] Specimen Comment: Source.............Cervix;Endocervix Specimen Comment: Other..............Post Menopausal;Other Specimen Comment: No. of containers..01 ThinPrep Vial Result Comment: The Pap smear is a screening test designed to aid in the detection of premalignant and malignant conditions of the uterine cervix. It is not a diagnostic procedure and should not be used as the sole means of detecting cervical cancer. Both false-positive and false-negative reports do occur. Performed By: #### L 7400.0290 #### [facility] [address] [place], [place], [address] PERFORM Comment Normal . [facility] Comment on above: Order Comment: Speci men Comment: [id number] Specimen Comment: Source.............Cervix;Endocervix Specimen Comment: Other..............Post Menopausal;Other Specimen Comment: No. of containers..01 ThinPrep Vial Result Comment: Marianna Redman, Compensation Specialist (ASCP) Performed By: #### L 7400.0290 #### [facility] [address] [place], [place], [address] Absolute lymphocyte countOrd ered By: Dr. Patel on 12-14-2022 Lymphocytes Auto (Unsp spec) [#/Vol] 2.85 10*3/uL 0.83-4.51 [facility] Basophil percentageOrdered B y: Dr. Patel on 12-14-2022 Basophils/100 WBC (Bld) 0.5 % 0-1 [facility] Bilirubin [Mass/Vol] 0.50 mg/dL 0.20-1.00 [facility] Comment on above: For patients on eltr ombopag therapy, use of Dimension Brock TBIL is not recommended. Chloride [Moles/Vol] 100 mmol/L 98-107 [facility] Cholesterol [Mass/Vol] 242 mg/dL <200 [facility] Comment on above: <200 mg/dL Desirable 200-240 mg/dL Borderline >240 mg/dL High Risk Eosinophils/100 WBC (Bld) 0.6 % 0-5 [facility] Glucose [Mass/Vol] 105 mg/dL 74-106 [facility] Comment on above: Fasting Glucose resu lt from 100 to 125 mg/dL suggests IMPAIRED HOMEOSTASIS per A.D.A. criteria. Neutrophils (Bld) [#/Vol] 5.5 10*3/uL 2.0-7.7 [facility] Neutrophils/100 WBC (Bld) 57.2 % 47-70 [facility] Potassium [Moles/Vol] 4.0 mmol/L 3.5-5.1 [facility] Protein [Mass/Vol] 8.0 g/dL 6.4-8.2 [facility] Sodium [Moles/Vol] 134 mmol/L 136-145 [facility] Triglyceride [Mass/Vol] 448 mg/dL <199 [facility] Comment on above: The drugs N-Acetylcy steine and Metamizole may falsely depress this assay. TRIGLYCERIDE IS GREATER THAN 400 mg/dL. LDL RESULT IS INVALID AND WILL NOT BE REPORTED.Serum Triglycerides Reference Interval Normal <150 mg/dL Borderline high 150 - 199 mg/dL High 200 - 499 mg/dL Very High > or = 500 mg/dL WBC (Bld) [#/Vol] 9.6 10*3/uL 4.4-11.0 [facility] Blood erythrocytes count (nu mber/volume)Ordered By: Dr. Patel on 12-14-2022 RBC (Bld) [#/Vol] 5.03 10*6/uL 4.2-5.4 [facility] Blood hemoglobin measurement (mass/volume)Ordered By: Dr. Patel on 12-14-2022 Hemoglobin (Bld) [Mass/Vol] 14.3 g/dL 12.0-15.0 [facility] Blood lymphocytes/100 leukoc ytesOrdered By: Dr. Patel on 12-14-2022 Lymphocytes/100 WBC (Bld) 29.7 % 19-41 [facility] Blood monocytes/100 leukocyt esOrdered By: Dr. Patel on 12-14-2022 Monocytes/100 WBC (Bld) 11.0 % 0-10 [facility] Blood platelet mean volumeOr dered By: Dr. Patel on 12-14-2022 Platelet mean volume (Bld) [Entitic vol] 10.8 fL 6.2-12.0 [facility] Determination of erythrocyte mean corpuscular volume (MCV)Ordered By: Dr. Patel on 12-14-2022 MCV (RBC) [Entitic vol] 91.1 fL 81-99 [facility] Hematocrit Auto (Bld) [Volum e fraction]Ordered By: Dr. Patel on 12-14-2022 Hematocrit (Bld) [Volume fraction] 45.8 % 37-47 [facility] - Chemistry and C hemistry - challengeOrdered By: Dr. Patel on 12-14-2022 ALP [Catalytic activity/Vol] 87 U/L 45-117 [facility] ALT [Catalytic activity/Vol] 27 U/L 13-56 [facility] CO2 [Moles/Vol] 26.0 mmol/L 21.0-32.0 [facility] Cobalamin (Vitamin B12) [Mass/Vol] 570 pg/mL 211-911 [facility] Free T4 [Mass/Vol] 1.51 ng/dL 0.76-1.46 [facility] Globulin (S) [Mass/Vol] 4.3 g/dL 2.2-4.2 [facility] Urea nitrogen/Creatinine [Mass ratio] 11.2 mg/mg 10-20 [facility] - Hematology and Cell countsOrdered By: Dr. Patel on 12-14-2022 Erythrocyte distribution width (RBC) [Entitic vol] 46.7 fL 35.1-43.9 [facility] Erythrocyte distribution width (RBC) [Ratio] 14.0 % 11.6-14.6 [facility] Immature granulocytes/100 WBC (Bld) 1.000 % 0.0-0.9 [facility] Comment on above: IG% - Immature Granu locytes (promyelocytes, myelocytes and metamyelocytes) > 1% indicates that a LEFT SHIFT is Present. MCH (RBC) [Entitic mass] 28.4 pg 27.0-32.0 [facility] Nucleated RBC/100 WBC (Bld) [Ratio] 0 % 0-5 [facility] MCHC Auto (RBC) [Mass/Vol]Or dered By: Dr. Patel on 12-14-2022 MCHC (RBC) [Mass/Vol] 31.2 g/dL 32-36 [facility] No Panel InformationOrdered By: Dr. Patel on 12-14-2022 Estimated GFR (MDRD) Amer 61 mL/min >60 [facility] Comment on above: GFR Calc Estimated GFR (MDRD) Non-Af Amer 50 mL/min >60 [facility] Comment on above: Non- GFR Calc Thyroid Stimulating Hormone (TSH) 0.57 uIU/mL 0.358-3.74 [facility] Vitamin D 25-Hydroxy 75.7 ng/mL [facility] Comment on above: Vitamin D 25(OH) Sta tus Range Deficiency <20 ng/mL (50nmol/L) Insufficiency 20 - 30 ng/mL (50 - 75 nmol/L) Sufficiency 30 - 100 ng/mL (75 - 250 nmol/L) Toxicity >100 ng/mL (>250 nmol/L) Platelets bldOrdered By: Dr. Patel on 12-14-2022 Platelets (Bld) [#/Vol] 317 10*3/uL 150-450 [facility] Serum or plasma albumin tamy urement (mass/volume)Ordered By: Dr. Patel on 12-14-2022 Albumin [Mass/Vol] 3.7 g/dL 3.2-5.0 [facility] Serum or plasma albumin/glob ulin mass ratioOrdered By: Dr. Patel on 12-14-2022 Albumin/Globulin [Mass ratio] 0.9 {ratio} 0.9-2.4 [facility] Serum or plasma calcium tamy urement (mass/volume)Ordered By: Dr. Patel on 12-14-2022 Calcium [Mass/Vol] 9.3 mg/dL 8.5-10.1 [facility] Serum or plasma cholesterol in HDL measurement (mass/volume)Ordered By: Dr. Patel on 12-14-2022 Cholesterol in HDL [Mass/Vol] 44 mg/dL >40 [facility] Comment on above: The drugs N-Acetylcy steine and Metamizole may falsely depress this assay. Reference Range HDL <40 mg/dL Low HDL Cholesterol HDL >or= 60 mg/dL High HDL Cholesterol Serum or plasma cholesterol in VLDL measurement (mass/volume)Ordered By: Dr. Patel on 12-14-2022 Cholesterol in VLDL [Mass/Vol] [facility] Comment on above: Test not performed Serum or plasma creatinine m easurement (mass/volume)Ordered By: Dr. Patel on 12-14-2022 Creatinine [Mass/Vol] 1.16 mg/dL 0.55-1.02 [facility] Comment on above: The validity of the calculated GFR & GFRAA in patients over 70 years has not been determined. Clinical correlation is essential. Serum or plasma low density lipoprotein (LDL) cholesterol measurement (mass/volume)Ordered By: Dr. Patel on 12-14-2022 Cholesterol in LDL [Mass/Vol] [facility] Comment on above: Test not performed Serum or plasma urea nitroge n measurement (mass/volume)Ordered By: Dr. Patel on 12-14-2022 Urea nitrogen [Mass/Vol] 13 mg/dL 7-18 [facility] Thin prep Papanicolaou smear with manual screeningOrdered By: Dr. Patel on 12-14-2022 Thin prep Papanicolaou smear with manual screening 30 U/L 15-37 [facility] Thin prep Papanicolaou smear with manual screening 8 5-15 [facility] XR SPINE LUMBOSACRAL 2 OR 3 VIEWSon 09-24-2022 XR SPINE LUMBOSACRAL 2 OR 3 VIEWS ORIGINAL EXAMINATION: 3 XRAY VIEWS OF THE LUMBAR SPINE 09/23/2022 10:58 am COMPARISON: None. HISTORY: ORDERING SYSTEM PROVIDED HISTORY: Reason for Exam: DDD, LT LUMBAR RADICULOPATHY FINDINGS: Sclerotic facet degenerative changes are evident inferiorly. This results in a grade 1 anterolisthesis at L4-5. Vertebral body height and alignment is otherwise unremarkable. No other posterior element abnormality seen. No definite sacral finding. IMPRESSION: At least moderate sclerotic facet degenerative changes inferiorly with grade 1 L4-5 anterolisthesis. Interpreted by: Lucas Hardy MD Preliminary Report By: Lucas Hardy MD Electronically signed By Lucas Hardy MD Dictated Date: 09/24/2022 8:14:04 AM Prelim Date: 09/24/2022 8:14:43 AM Sign Date: 09/24/2022 8:14:43 AM Ordering Provider: PHY REFERRING Normal [facility] ([place]) Absolute lymphocyte counton 07-06-2022 Lymphocytes Auto (Unsp spec) [#/Vol] 2.79 10*3/uL 0.83-4.51 [facility] Work Phone: Basophil percentageon 2021 Basophils/100 WBC (Bld) 0.6 % 0-1 [facility] Work Phone: Bilirubin [Mass/Vol] 0.50 mg/dL 0.20-1.00 [facility] Work Phone: Comment on above: For patients on eltr ombopag therapy, use of Dimension Brock TBIL is not recommended. Chloride [Moles/Vol] 101 mmol/L 98-107 [facility] Work Phone: Cholesterol [Mass/Vol] 261 mg/dL <200 [facility] Work Phone: Comment on above: <200 mg/dL Desirable 200-240 mg/dL Borderline >240 mg/dL High Risk Eosinophils/100 WBC (Bld) 0.7 % 0-5 [facility] Work Phone: Glucose [Mass/Vol] 117 mg/dL 74-106 [facility] Work Phone: Comment on above: Fasting Glucose resu lt from 100 to 125 mg/dL suggests IMPAIRED HOMEOSTASIS per A.D.A. criteria. Neutrophils (Bld) [#/Vol] 4.3 10*3/uL 2.0-7.7 [facility] Work Phone: Neutrophils/100 WBC (Bld) 52.6 % 47-70 [facility] Work Phone: Potassium [Moles/Vol] 4.4 mmol/L 3.5-5.1 [facility] Work Phone: Comment on above: Slight Hemolysis, Re sult may be falsely increased. Protein [Mass/Vol] 8.1 g/dL 6.4-8.2 [facility] Work Phone: Sodium [Moles/Vol] 132 mmol/L 136-145 [facility] Work Phone: Triglyceride [Mass/Vol] 314 mg/dL <199 [facility] Work Phone: Comment on above: The drugs N-Acetylcy steine and Metamizole may falsely depress this assay.Serum Triglycerides Reference Interval Normal <150 mg/dL Borderline high 150 - 199 mg/dL High 200 - 499 mg/dL Very High > or = 500 mg/dL WBC (Bld) [#/Vol] 8.1 10*3/uL 4.4-11.0 [facility] Work Phone: Blood erythrocytes count (nu mber/volume)on 07-06-2022 RBC (Bld) [#/Vol] 4.82 10*6/uL 4.2-5.4 [facility] Work Phone: Blood hemoglobin measurement (mass/volume)on 07-06-2022 Hemoglobin (Bld) [Mass/Vol] 14.8 g/dL 12.0-15.0 [facility] Work Phone: Blood lymphocytes/100 leukoc yteson 07-06-2022 Lymphocytes/100 WBC (Bld) 34.4 % 19-41 [facility] Work Phone: Blood monocytes/100 leukocyt eson 07-06-2022 Monocytes/100 WBC (Bld) 10.8 % 0-10 [facility] Work Phone: Blood platelet mean volumeon 07-06-2022 Platelet mean volume (Bld) [Entitic vol] 11.0 fL 6.2-12.0 [facility] Work Phone: Determination of erythrocyte mean corpuscular volume (MCV)on 07-06-2022 MCV (RBC) [Entitic vol] 92.3 fL 81-99 [facility] Work Phone: Hematocrit Auto (Bld) [Volum e fraction]on 07-06-2022 Hematocrit (Bld) [Volume fraction] 44.5 % 37-47 [facility] Work Phone: Laboratory - Chemistry and C hemistry - challengeon 07-06-2022 ALP [Catalytic activity/Vol] 87 U/L 45-117 [facility] Work Phone: ALT [Catalytic activity/Vol] 32 U/L 13-56 [facility] Work Phone: [phone] CO2 [Moles/Vol] 25.0 mmol/L 21.0-32.0 [facility] Work Phone: Cobalamin (Vitamin B12) [Mass/Vol] 287 pg/mL 211-911 [facility] Work Phone: [phone] Free T4 [Mass/Vol] 1.68 ng/dL 0.76-1.46 [facility] Work Phone: Globulin (S) [Mass/Vol] 4.5 g/dL 2.2-4.2 [facility] Work Phone: Magnesium [Mass/Vol] 2.3 mg/dL 1.6-2.6 [facility] Work Phone: Comment on above: Slight Hemolysis, Re sult may be falsely increased. Urea nitrogen/Creatinine [Mass ratio] 17.8 mg/mg 10-20 [facility] Work Phone: Laboratory - Hematology and Cell countson 07-06-2022 Erythrocyte distribution width (RBC) [Entitic vol] 43.3 fL 35.1-43.9 [facility] Work Phone: Erythrocyte distribution width (RBC) [Ratio] 12.8 % 11.6-14.6 [facility] Work Phone: Immature granulocytes/100 WBC (Bld) 0.900 % 0.0-0.9 [facility] Work Phone: Comment on above: IG% - Immature Granu locytes (promyelocytes, myelocytes and metamyelocytes) > 1% indicates that a LEFT SHIFT is Present. MCH (RBC) [Entitic mass] 30.7 pg 27.0-32.0 [facility] Work Phone: Nucleated RBC/100 WBC (Bld) [Ratio] 0 % 0-5 [facility] Work Phone: MCHC Auto (RBC) [Mass/Vol]on 07-06-2022 MCHC (RBC) [Mass/Vol] 33.3 g/dL 32-36 [facility] Work Phone: No Panel Informationon 07-06 Estimated GFR (MDRD) Amer 88 mL/min >60 [facility] Work Phone: Comment on above: GFR Calc Estimated GFR (MDRD) Non-Af Amer 73 mL/min >60 [facility] Work Phone: Comment on above: Non- GFR Calc Thyroid Stimulating Hormone (TSH) 0.23 uIU/mL 0.358-3.74 [facility] Work Phone: Vitamin D 25-Hydroxy 15.7 ng/mL [facility] Work Phone: Comment on above: Vitamin D 25(OH) Sta tus Range Deficiency <20 ng/mL (50nmol/L) Insufficiency 20 - 30 ng/mL (50 - 75 nmol/L) Sufficiency 30 - 100 ng/mL (75 - 250 nmol/L) Toxicity >100 ng/mL (>250 nmol/L) Platelets bldon 07-06-2022 Platelets (Bld) [#/Vol] 300 10*3/uL 150-450 [facility] Work Phone: Serum or plasma albumin tamy urement (mass/volume)on 07-06-2022 Albumin [Mass/Vol] 3.6 g/dL 3.2-5.0 [facility] Work Phone: Serum or plasma albumin/glob ulin mass ratioon 07-06-2022 Albumin/Globulin [Mass ratio] 0.8 {ratio} 0.9-2.4 [facility] Work Phone: Serum or plasma calcium tamy urement (mass/volume)on 07-06-2022 Calcium [Mass/Vol] 9.6 mg/dL 8.5-10.1 [facility] Work Phone: Serum or plasma cholesterol in HDL measurement (mass/volume)on 07-06-2022 Cholesterol in HDL [Mass/Vol] 48 mg/dL >40 [facility] Work Phone: Comment on above: The drugs N-Acetylcy steine and Metamizole may falsely depress this assay. Reference Range HDL <40 mg/dL Low HDL Cholesterol HDL >or= 60 mg/dL High HDL Cholesterol Serum or plasma cholesterol in VLDL measurement (mass/volume)on 07-06-2022 Cholesterol in VLDL [Mass/Vol] 63 mg/dL 5-40 [facility] Work Phone: Serum or plasma creatinine m easurement (mass/volume)on 07-06-2022 Creatinine [Mass/Vol] 0.84 mg/dL 0.55-1.02 [facility] Work Phone: Comment on above: The validity of the calculated GFR & GFRAA in patients over 70 years has not been determined. Clinical correlation is essential. Serum or plasma low density lipoprotein (LDL) cholesterol measurement (mass/volume)on 07-06-2022 Cholesterol in LDL [Mass/Vol] 150 mg/dL 0-130 [facility] Work Phone: Serum or plasma urea nitroge n measurement (mass/volume)on 07-06-2022 Urea nitrogen [Mass/Vol] 15 mg/dL 7-18 [facility] Work Phone: Thin prep Papanicolaou smear with manual screeningon 07-06-2022 Thin prep Papanicolaou smear with manual screening 24 U/L 15-37 [facility] Work Phone: Comment on above: Slight Hemolysis, Re sult may be falsely increased. Thin prep Papanicolaou smear with manual screening 6 5-15 [facility] Work Phone: Absolute lymphocyte counton 11-09-2021 Lymphocytes Auto (Unsp spec) [#/Vol] 1.41 10*3/uL 0.83-4.51 [facility] Work Phone: Basophil percentageon 2021 Basophil percentage 25-50 SEEN /hpf [facility] Work Phone: Basophils/100 WBC (Bld) 0.4 % 0-1 [facility] Work Phone: Chloride [Moles/Vol] 94 mmol/L 98-107 [facility] Work [facility]: Eosinophils/100 WBC (Bld) 0.0 % 0-5 [facility] Work Phone: Glucose [Mass/Vol] 113 mg/dL 74-106 [facility] Work Phone: Comment on above: Fasting Glucose resu lt from 100 to 125 mg/dL suggests IMPAIRED HOMEOSTASIS per A.D.A. criteria. Neutrophils (Bld) [#/Vol] 3.1 10*3/uL 2.0-7.7 [facility] Work Phone: Neutrophils/100 WBC (Bld) 57.5 % 47-70 [facility] Work Phone: Potassium [Moles/Vol] 3.9 mmol/L 3.5-5.1 [facility] Work Phone: Sodium [Moles/Vol] 127 mmol/L 136-145 [facility] Work Phone: WBC (Bld) [#/Vol] 5.3 10*3/uL 4.4-11.0 [facility] Work Phone: Bilirubin Test strip Ql (U)o n 11-09-2021 Bilirubin Ql (U) Negative Negative [facility] Work Phone: Blood erythrocytes count (nu mber/volume)on 11-09-2021 RBC (Bld) [#/Vol] 5.05 10*6/uL 4.2-5.4 [facility] Work Phone: Blood hemoglobin measurement (mass/volume)on 11-09-2021 Hemoglobin (Bld) [Mass/Vol] 15.6 g/dL 12.0-15.0 [facility] Work Phone: Blood lymphocytes/100 leukoc yteson 11-09-2021 Lymphocytes/100 WBC (Bld) 26.6 % 19-41 [facility] Work Phone: Blood monocytes/100 leukocyt eson 11-09-2021 Monocytes/100 WBC (Bld) 14.7 % 0-10 [facility] Work Phone: Blood platelet mean volumeon 11-09-2021 Platelet mean volume (Bld) [Entitic vol] 10.1 fL 6.2-12.0 [facility] Work Phone: Determination of erythrocyte mean corpuscular volume (MCV)on 11-09-2021 MCV (RBC) [Entitic vol] 92.5 fL 81-99 [facility] Work Phone: Hematocrit Auto (Bld) [Volum e fraction]on 11-09-2021 Hematocrit (Bld) [Volume fraction] 46.7 % 37-47 [facility] Work Phone: Ketones Test strip Ql (U)on 11-09-2021 Ketones Ql (U) 15 mg/dl Negative [facility] Work Phone: Laboratory - Chemistry and C hemistry - challengeon 11-09-2021 CO2 [Moles/Vol] 24.0 mmol/L 21.0-32.0 [facility] Work Phone: Urea nitrogen/Creatinine [Mass ratio] 19.3 mg/mg 10-20 [facility] Work Phone: Laboratory - Hematology and Cell countson 11-09-2021 Erythrocyte distribution width (RBC) [Entitic vol] 46.5 fL 35.1-43.9 [facility] Work Phone: Erythrocyte distribution width (RBC) [Ratio] 13.6 % 11.6-14.6 [facility] Work Phone: Immature granulocytes/100 WBC (Bld) 0.800 % 0.0-0.9 [facility] Work Phone: Comment on above: IG% - Immature Granu locytes (promyelocytes, myelocytes and metamyelocytes) > 1% indicates that a LEFT SHIFT is Present. MCH (RBC) [Entitic mass] 30.9 pg 27.0-32.0 [facility] Work Phone: Nucleated RBC/100 WBC (Bld) [Ratio] 0 % 0-5 [facility] Work Phone: MCHC Auto (RBC) [Mass/Vol]on 11-09-2021 MCHC (RBC) [Mass/Vol] 33.4 g/dL 32-36 [facility] Work Phone: Mucus LM Ql (Urine sed)on Mucus Ql (Urine sed) 0 SEEN /hpf [facility] Work Phone: Nitrite Test strip Ql (U)on 11-09-2021 Nitrite Ql (U) Positive Negative [facility] Work Phone: No Panel Informationon 11-09 Estimated Creatinine Clearance Calc 54.27 ml/min [facility] Work Phone: Estimated GFR (MDRD) Amer 78 mL/min >60 [facility] Work Phone: Comment on above: GFR Calc Estimated GFR (MDRD) Non-Af Amer 65 mL/min >60 [facility] Work Phone: Comment on above: Non- GFR Calc SARS-CoV-2 & FLU Antigen (Rapid) SARS-CoV-2 (COVID 19) [facility] Work Phone: Platelets bldon 11-09-2021 Platelets (Bld) [#/Vol] 192 10*3/uL 150-450 [facility] Work Phone: Protein Test strip Ql (U)on 11-09-2021 Protein Ql (U) 30 mg/dl Negative [facility] Work Phone: Serum or plasma calcium tamy urement (mass/volume)on 11-09-2021 Calcium [Mass/Vol] 8.3 mg/dL 8.5-10.1 [facility] Work Phone: Serum or plasma creatinine m easurement (mass/volume)on 11-09-2021 Creatinine [Mass/Vol] 0.94 mg/dL 0.55-1.02 [facility] Work Phone: Comment on above: The validity of the calculated GFR & GFRAA in patients over 70 years has not been determined. Clinical correlation is essential. Serum or plasma urea nitroge n measurement (mass/volume)on 11-09-2021 Urea nitrogen [Mass/Vol] 18 mg/dL 7-18 [facility] Work Phone: Squamous epithelial cells de tection in urine sediment by light microscopyon 11-09-2021 Epithelial cells.squamous LM Ql (Urine sed) 0 SEEN /hpf [facility] Work Phone: Thin prep Papanicolaou smear with manual screeningon 11-09-2021 Thin prep Papanicolaou smear with manual screening 9 5-15 [facility] Work Phone: Urine blood detectionon 10-15 RBC Ql (U) 25 /ul Negative [facility] Work Phone: RBC Ql (U) 0-5 SEEN /hpf [facility] Work Phone: Urine clarityon 11-09-2021 Clarity (U) Cloudy Clear [facility] Work Phone: Urine color determinationon 11-09-2021 Color (U) Yellow Yellow [facility] Work Phone: Urine glucose detectionon Glucose Ql (U) Normal mg/dl Normal [facility] Work Phone: Urine leukocyte esterase det ection by dipstickon 11-09-2021 Leukocyte esterase Test strip Ql (U) 500 /ul Negative [facility] Work Phone: Urine pHon 04-27-2022 pH (U) 6.0 [pH] [facility] Work Phone: Urine sediment bacteria coun t by microscopy (number/high power field)on 11-09-2021 Bacteria LM.HPF (Urine sed) [#/Area] 4 /[HPF] None Seen [facility] Work Phone: Urine specific gravity measu rementon 11-09-2021 Specific gravity (U) [Rel density] 1.020 [facility] Work Phone: Urobilinogen Auto test strip Ql (U)on 11-09-2021 Urobilinogen Ql (U) Normal mg/dl Normal [facility] Work Phone: Office Visit: [facility]: L shoulde r contusion f/uon 12-29-2016 Documentation of current medications (procedure) Done Invalid Interpretation Code [facility] Work Phone: Protein mass conc Done [facility] Work Phone: Tobacco smoking status NHIS Never [facility] Work Phone: Tobacco smoking status NHIS Current every day smoker [facility] Work Phone: Tobacco use [facility] Current every day smoker Invalid Interpretation Code [facility] Work Phone: Office Visit: [facility] f/u: L shoulder contusion, R forearm abrasionon 12-19-2016 Documentation of current medications (procedure) Done Invalid Interpretation Code [facility] Work Phone: Fall risk assessment No [facility] Work Phone: Protein mass conc Smoking cessation education (procedure) [facility] Work Phone: Smoking cessation education (procedure) Smoking cessation education (procedure) Invalid Interpretation Code [facility] Work Phone: Tobacco smoking status NHIS Never Invalid Interpretation Code [facility] Work Phone: Tobacco use [facility] Current every day smoker Invalid Interpretation Code [facility] Work Phone: Rx Refill: eRx Request for P ANTOPRAZOLE SOD 40MG TABon 11-30-2015 e-scripts messenger refill request [id number]`PANTOPR AZOLE SOD 40MG TAB`40MG``30 Tablet`30`TAKE ONE TABLET BY MOUTH ONCE DAILY``1`0`06/07/20 15`11/02/2015`Chino Mcmanus*`[id number] `[id number]``PANTO PRAZOLE SOD 40MG TAB Quantity: 30 Tablet Instructions: TAKE ONE TABLET BY MOUTH ONCE DAILY Better [facility] Work Phone: [facility]_RR [phone]`PANTOPR AZOLE SOD 40MG TAB`40MG``30 Tablet`30`TAKE ONE TABLET BY MOUTH ONCE DAILY``1`0`06/07/20 15`11/02/2015`Chino Deangelo Mcmanus*`[id number] `[id number]``PANTO PRAZOLE SOD 40MG TAB Quantity: 30 Tablet Instructions: TAKE ONE TABLET BY MOUTH ONCE DAILY Better [facility] Work Phone: Lab Report: CBC W/Diff, Auto matedon 04-12-2015 Absolute Neut 5.6 X10 3/UL 2.0-7.7 [facility] Work Phone: Absolute Neutrophil count 5.6 X10 3/UL Invalid Interpretation Code 2.0-7.7 [facility] Work Phone: Basophils/100 leukocytes 0.2 % Invalid Interpretation Code 0-1 [facility] Work Phone: Basophils/100 WBC (Bld) 0.2 % 0-1 [facility] Work Phone: [phone] Eosinophils/100 leukocytes 1.0 % Invalid Interpretation Code 0-5 [facility] Work Phone: Eosinophils/100 WBC (Bld) 1.0 % 0-5 [facility] Work Phone: Erythrocyte distribution width Ratio (RBC) 46.8 fL High 35.1-43.9 [facility] Work Phone: Erythrocyte distribution width Ratio (RBC) 13.4 % 11.6-14.6 [facility] Work Phone: Erythrocytes (RBC) 4.66 10*6/uL Invalid Interpretation Code 4.2-5.4 [facility] Work Phone: [phone] Hematocrit (HCT) 44.9 % Invalid Interpretation Code 37-47 [facility] Work Phone: [phone] Hematocrit Volume Fraction (Bld) 44.9 % 37-47 [facility] Work Phone: [phone] Hemoglobin (HGB) 14.8 g/dL 12.0-15.0 [facility] Work Phone: [phone] Immature granulocytes #/vol (Bld) 0.500 % 0.0-0.9 [facility] Work Phone: immature granulocytes, percentage of total cells, blood 0.500 % Invalid Interpretation Code 0.0-0.9 [facility] Work Phone: Lymphocytes 4.21 X10 3/UL Invalid Interpretation Code 0.83-4.51 [facility] Work Phone: [phone] Lymphocytes #/vol (Bld) 4.21 X10 3/UL 0.83-4.51 [facility] Work Phone: [phone] Lymphocytes/100 leukocytes 38.4 % Invalid Interpretation Code 19-41 [facility] Work Phone: [phone] Lymphocytes/100 WBC (Bld) 38.4 % 19-41 [facility] Work Phone: MCH 31.8 pg Invalid Interpretation Code 27.0-32.0 [facility] Work Phone: [phone] MCH Entitic mass (RBC) 31.8 pg 27.0-32.0 [facility] Work Phone: [phone] MCHC 33.0 G/GL Invalid Interpretation Code 32-36 [facility] Work Phone: MCHC mass conc (RBC) 33.0 G/GL 32-36 [facility] Work Phone: [phone] MCV 96.4 fL Invalid Interpretation Code 81-99 [facility] Work Phone: [phone] MCV Entitic volume (RBC) 96.4 fL 81-99 [facility] Work Phone: [phone] Monocytes/100 leukocytes 8.9 % Invalid Interpretation Code 0-10 [facility] Work Phone: [phone] Monocytes/100 WBC (Bld) 8.9 % 0-10 [facility] Work Phone: [phone] Neutrophils/100 leukocytes 51.0 % Invalid Interpretation Code 47-70 [facility] Work Phone: [phone] Neutrophils/100 WBC (Bld) 51.0 % 47-70 [facility] Work Phone: [phone] Platelet mean volume Entitic volume (Bld) 11.0 fL 6.2-12.0 [facility] Work Phone: [phone] Platelets 281 10*3/mm3 Invalid Interpretation Code 150-450 [facility] Work Phone: [phone] Platelets #/vol (Bld) 281 10*3/mm3 150-450 [facility] Work Phone: PMV by Dayday 11.0 fL Invalid Interpretation Code 6.2-12.0 [facility] Work Phone: RBC #/vol (Bld) 4.66 10*6/uL 4.2-5.4 [facility] Work Phone: RDW-CA 13.4 % Invalid Interpretation Code 11.6-14.6 [facility] Work Phone: red blood cell distribution width, size density 46.8 fL High 35.1-43.9 [facility] Work Phone: [phone] WBC #/vol (Bld) 11.0 10*3/uL 4.4-11.0 [facility] Work Phone: [phone] WBC (Leukocytes) 11.0 10*3/uL Invalid Interpretation Code 4.4-11.0 [facility] Work Phone: Lab Report: Comprehensive Ia tabolic Profilon 04-12-2015 Alanine aminotransferase (ALT) 37 U/L 12-78 [facility] Work Phone: Albumin 4.2 g/dL 3.4-5.0 [facility] Work Phone: Albumin/Globulin Ratio 1.1 {ratio} 0.9-2.4 [facility] Work Phone: Alkaline phosphatase (ALP) 95 U/L Invalid Interpretation Code 50-136 [facility] Work Phone: ALP enzyme act/vol (Bld) 95 U/L 50-136 [facility] Work Phone: Anion gap 8 mmol/L Invalid Interpretation Code 5-15 [facility] Work Phone: Anion gap molar conc 8 mmol/L 5-15 [facility] Work Phone: Aspartate aminotransferase (AST) 25 U/L 15-37 [facility] Work Phone: Bilirubin (total) 0.60 mg/dL 0.20-1.00 [facility] Work Phone: BUN/Creatinine Ratio 10.3 RATIO 10-20 [facility] Work Phone: Calcium 8.9 mg/dL 8.5-10.1 [facility] Work Phone: Chloride 104 mmol/L 98-107 [facility] Work Phone: CO2 23.0 mmol/L Invalid Interpretation Code 21.0-32.0 [facility] Work Phone: CO2 ppres (BldV) 23.0 mmol/L 21.0-32.0 [facility] Work Phone: Creatinine 0.97 mg/dL 0.55-1.20 [facility] Work Phone: eGFR (non-black) 64 mL/min/{1.73_m2} >60 [facility] Work Phone: eGFR (non-black) 78 mL/min/{1.73_m2} Invalid Interpretation Code >60 [facility] Work Phone: [phone] EST GFR - AA 78 mL/min >60 [facility] Work Phone: [phone] Globulin 3.9 g/dL High 2.3-3.5 [facility] Work Phone: [phone] Globulin mass conc (S) 3.9 g/dL High 2.3-3.5 [facility] Work Phone: [phone] Glucose 94 mg/dL Invalid Interpretation Code 70-110 [facility] Work Phone: [phone] Glucose mass conc 94 mg/dL 70-110 [facility] Work Phone: [phone] Potassium 3.7 mmol/L 3.5-5.1 [facility] Work Phone: Protein 8.1 g/dL 6.4-8.2 [facility] Work Phone: Sodium 135 mmol/L Low 136-145 [facility] Work Phone: Urea nitrogen 10 mg/dL 7-18 [facility] Work Phone: Lab Report: Lipid Profileon 04-12-2015 Cholesterol 251 mg/dL High 200 [facility] Work Phone: [phone] HDL Cholesterol 47 mg/dL [facility] Work Phone: LDL Cholesterol 135 mg/dL High 0-130 [facility] Work Phone: Triglyceride 343 mg/dL High [facility] Work Phone: [phone] very low density lipoproteins 69 mg/dL High 5-40 [facility] Work Phone: Lab Report: CMPon 04-17-2014 ALK 86 U/L Normal 50-136 [facility] Work Phone: [phone] GE use only - for [employer] import when terms are not otherwise specified 86 U/L Normal 50-136 [facility] Work Phone: [phone] Lab Report: UAon 04-17-2014 specific gravity, urine 1.010 Normal 1.002-1.030 [facility] Work Phone: [phone] Office Visiton 07-04-2013 influenza virus A antigen Negative [facility] Work Phone: [phone] Office Visiton 01-06-2013 Albumin Ql (U) Negative [facility] Work Phone: [phone] Bilirubin Ql (U) Negative [facility] Work Phone: [phone] blood in urine (hemoglobin) by dipstick hemolyzed trace Invalid Interpretation Code [facility] Work Phone: [phone] Glucose Test strip mass conc (U) Negative [facility] Work Phone: [phone] Ketones mass conc (U) Negative [facility] Work Phone: [phone] Nitrite Ql (U) Negative [facility] Work Phone: [phone] pH (U) 6.0 [pH] [facility] Work Phone: [phone] Urine, appearance clear [facility] Work Phone: [phone] Urine, bilirubin presence Negative Invalid Interpretation Code [facility] Work Phone: [phone] Urine, color yellow [facility] Work Phone: [phone] Urine, glucose presence Negative Invalid Interpretation Code [facility] Work Phone: [phone] Urine, ketones presence Negative Invalid Interpretation Code [facility] Work Phone: [phone] Urine, leukocyte esterase presence 1+ [facility] Work Phone: Urine, nitrite presence Negative Invalid Interpretation Code [facility] Work Phone: [phone] Urine, pH 6.0 [pH] Invalid Interpretation Code [facility] Work Phone: [phone] Urine, protein Negative Invalid Interpretation Code [facility] Work Phone: [phone] Urine, urobilinogen presence Negative [facility] Work Phone: [phone] Office Visiton 07-16-2004 General categories [interpretation] of Cervical or vaginal smear or scraping by Cyto stain Normal [facility] Work Phone: Office Visiton 07-16-2003 Breast Mammogram screening Normal Bilateral [facility] Work Phone: Vital Signs Date Time Vital Sign Value Performing Clinician Candi mccarty 11-09-2021 09:14-0400 Diastolic blood pressure 87 mm[Hg] [facility] Work Phone: 11-09-2021 09:14-0400 Systolic blood pressure 135 mm[Hg] [facility] Work Phone: 11-09-2021 07:09-0400 Body height 162.56 cm [facility] Work Phone: 11-09-2021 07:09-0400 Body mass index (BMI) [Ratio] 29.1 kg/m2 [facility] Work Phone: 11-09-2021 07:09-0400 Body temperature 97.4 [degF] [facility] Work Phone: 11-09-2021 07:09-0400 Body weight 77 kg [facility] Work Phone: 11-09-2021 07:09-0400 Heart rate 93 /min [facility] Work Phone: 11-09-2021 07:09-0400 Respiratory rate 14 /min [facility] Work Phone: 11-09-2021 07:09-0400 SaO2% (BldA) [Mass fraction] 96 % [facility] Work Phone: 12-29-2016 15:22-0400 BMI (Body Mass Index) 32.09 kg/m2 Arsalan CHU [facility] Work Phone: 12-29-2016 15:22-0400 Body Temperature 99 [degF] Arsalan CHU [facility] Work Phone: 12-29-2016 15:22-0400 BP Diastolic 76 mm[Hg] Arsalan CHU [facility] Work Phone: 12-29-2016 15:22-0400 BP Systolic 128 mm[Hg] Arsalan Nika CHU [facility] Work Phone: 12-29-2016 15:22-0400 Height 162.56 cm Arsalan Maher [facility] Work Phone: 12-29-2016 15:22-0400 Pulse (Heart Rate) 92 /min Arsalan Russosarah CHU [facility] Work Phone: 12-29-2016 15:22-0400 Pulse Oximetry 95 % Arsalan Maher [facility] Work Phone: 12-29-2016 15:22-0400 Respiratory Rate 18 /min Arsalan Maher [facility] Work Phone: 12-29-2016 15:22-0400 Weight 84.82 kg Arsalan Maher [facility] Work Phone: 12-19-2016 15:33-0400 BMI (Body Mass Index) 32.16 kg/m2 Torri Rajeev [facility] Work Phone: 12-19-2016 15:33-0400 Body Temperature 98.7 [degF] Torri Rajeev [facility] Work Phone: 12-19-2016 15:33-0400 BP Diastolic 60 mm[Hg] Torri Boo LPN [facility] Work Phone: 12-19-2016 15:33-0400 BP Systolic 104 mm[Hg] Torri Rajeev CHANGN [facility] Work Phone: 12-19-2016 15:33-0400 Height 162.56 cm Torri Rajeev [facility] Work Phone: 12-19-2016 15:33-0400 Pulse (Heart Rate) 94 /min Torri Rajeev [facility] Work Phone: 12-19-2016 15:33-0400 Pulse Oximetry 94 % Torri Boo LPN [facility] Work Phone: 12-19-2016 [phone] Respiratory Rate 14 /min Torri Boo LPN [facility] Work Phone: 12-19-2016 [phone] Weight 85 kg Torri Boo LPN [facility] Work Phone: 03-02-2016 16:54-0400 BSA (Body Surface Area) 1.91 m2 Torri Boo LPN [facility] Work Phone: Encounters Encounter Date Encounter Type Care Provider Facility Start: 03-17-2025 ambulatory [facility] Facility: [facility] Start: 03-11-2025 ambulatory [facility] Facility: [facility] Start: 02-19-[address] Adriano Patel DO -[facility] Start: 02-19-2025 ambulatory [facility] Facility: [facility] Start: 02-12-2025 End: 02-12-[address] Adriano Paetl DO Work Phone: -[facility] Start: 02-12-2025 End: 02-12-[address] Adriano Patel DO -[facility] Start: 02-12-2025 End: 02-12-2025 ambulatory Adriano Jorge Facility:[facility] Start: 07-21-2024 ambulatory [facility] Facility: [facility] Start: 07-14-2024 End: 07-14-2024 ambulatory [facility] Facility:[facility] Start: 02-26-2024 End: 02-26-2024 ambulatory [facility] Facility:[facility] Start: 12-14-2022 End: 12-14-2022 ambulatory [facility] Work Phone: Start: 12-14-2022 End: 12-14-2022 Patient encounter procedure [facility] Start: 09-23-2022 End: 09-24-2022 ambulatory PHY WO ID REFERRING Facility:A Start: 09-23-2022 End: 09-23-2022 Patient encounter procedure PHY WO ID REFERRING [facility] Start: 07-06-2022 End: 07-06-2022 ambulatory [facility] Work Phone: Start: 07-06-2022 End: 07-06-2022 Patient encounter procedure [facility] [place] [facility] Start: 11-09-2021 End: 11-09-2021 Emergency department patient visit [facility]-Emergency Department Start: 08-03-2021 End: 08-03-2021 Patient encounter procedure [facility]-Outpatient Breast Imaging Start: 12-20-2009 Encounter for genera l adult medical examination without abnormal findings Arsalan CHU [facility] Work Phone: Procedures Date Procedure Procedure Detail Performing Clinician Start: 07-06-2022 Radiography of thora cic spine Start: 07-06-2022 X-ray of lumbosacral spine Start: 11-09-2021 SARS-CoV-2 & FLU Ant igen (Rapid) Start: 11-09-2021 Plain chest X-ray Start: 11-09-2021 CT of head without contrast Start: 08-03-2021 Screening mammography Start: 03-29-2015 End: 04-12-2015 *CBC with Differential Adriano Wilder O Work Phone: Start: 03-29-2015 End: 04-12-2015 *CMP Complete Metabolic Panel Adriano Patel DO Work Phone: Start: 03-29-2015 End: 04-12-2015 Lipid panel [AGGREGATE] Adriano Patel DO Work Phone: Start: 03-30-2014 End: 03-30-2015 *CMP Complete Metabolic Panel Butch Hogue MD Start: 03-30-2014 End: 03-30-2015 *UA - Urinalysis w/o Micro Butch Hogue MD Start: 03-30-2014 End: 03-30-2015 CBC W Auto Differential panel - Blood Butch Hogue MD Start: 03-30-2014 End: 04-17-2014 Lipid Profile Butch Hogue MD Start: 07-04-2013 End: 07-04-2013 Influenza assay w/optic Butch Hogue MD Start: 03-18-2013 End: 04-17-2014 *CBC with Differential Butch Hogue MD Start: 03-18-2013 End: 04-17-2014 *CMP Complete Metabolic Panel Butch Hogue MD Start: 03-18-2013 End: 04-17-2014 *UA - Urinalysis w/o Micro Butch Hogue MD Start: 03-18-2013 End: 04-17-2014 Lipid panel [AGGREGATE] Butch Hogue MD Start: 01-06-2013 End: 01-06-2013 Urinalysis Arsalan CHU Start: 01-06-2013 End: 01-06-2013 Urinalysis nonauto w/o scope Butch Hogue MD Start: 12-17-2012 End: 12-17-2012 Follow Up Appt 3 months Butch Hogue MD Start: 07-04-2011 End: 07-04-2011 Follow up Appt 1 week Butch Hogue MD Start: 09-15-2010 End: 07-04-2011 Follow Up as scheduled Butch Hogue MD Start: 07-19-2010 End: 07-19-2010 Follow Up Appt 6 months Butch Hogue MD Start: 12-20-2009 End: 12-20-2009 Follow Up Appt 3 months Butch Hogue MD Start: 12-07-2009 End: 12-07-2009 Follow Up Appt 1 month Butch Hogue MD Start: 12-07-2009 Screening mammography OTHER SC REENING MAMMOGRAM Arsalan CHU Plan of Treatment Date Care Activity Detail Author Start: 11-09-2021 Bacteria identified in Urine by Culture Urine Culture [facility] Work Phone: Start: 12-29-2016 End: 12-29-2016 Appointment Appointment [facility] Work Phone: Start: 12-19-2016 End: 12-19-2016 Appointment Appointment [facility] Work Phone: Start: 03-02-2016 End: 03-02-2016 *CBC with Differential *CBC with Differential [facility] Work Phone: Start: 03-02-2016 End: 03-02-2016 *CMP Complete Metabolic Panel *CMP Complete Metabolic Panel [facility] Work Phone: Start: 03-02-2016 End: 03-02-2016 Lipid panel [AGGREGATE] *Lipid Profile [facility] Work Phone: Start: 03-02-2016 End: 03-02-2016 Mammogram, screening Mammogram, Screening, both breasts [facility] Work Phone: Start: 03-29-2015 End: 04-12-2015 *CBC with Differential *CBC with Differential [facility] Work Phone: Start: 03-29-2015 End: 04-12-2015 *CMP Complete Metabolic Panel *CMP Complete Metabolic Panel [facility] Work Phone: Start: 03-29-2015 End: 04-12-2015 Lipid panel [AGGREGATE] *Lipid Profile [facility] Work Phone: Start: 03-29-2015 End: 03-29-2015 Mammogram, screening Mammogram, Screening, both breasts [facility] Work Phone: Start: 03-30-2014 End: 04-01-2014 *CMP Complete Metabolic Panel *CMP Complete Metabolic Panel [facility] Work Phone: Start: 03-30-2014 End: 04-01-2014 *UA - Urinalysis w/o Micro *UA - Urinalysis w/o Micro [facility] Work Phone: Start: 03-30-2014 End: 04-01-2014 CBC W Auto Differential panel - Blood *CBC without Diff [facility] Work Phone: Start: 03-30-2014 End: 04-17-2014 Lipid Profile Lipid Profile [facility] Work Phone: Start: 03-30-2014 End: 03-30-2014 Mammogram-Bilateral Mammogram-Bilateral [facility] Work Phone: Start: 09-29-2013 End: 09-29-2013 Mammogram, Screening, both breasts Mammogram, Screening, both breasts [facility] Work Phone: Start: 07-04-2013 End: 07-04-2013 Influenza assay w/optic Flu Test A [facility] Work Phone: Start: 03-18-2013 End: 04-17-2014 *CBC with Differential *CBC with Differential [facility] Work Phone: Start: 03-18-2013 End: 04-17-2014 *CMP Complete Metabolic Panel *CMP Complete Metabolic Panel [facility] Work Phone: Start: 03-18-2013 End: 04-17-2014 *UA - Urinalysis w/o Micro *UA - Urinalysis w/o Micro [facility] Work Phone: Start: 03-18-2013 End: 03-18-2013 Complete sleep workup (PSG,CPAP as indicated) & Follow up Complete sleep workup (PSG,CPAP as indicated) & Follow up [facility] Work Phone: Start: 03-18-2013 End: 04-17-2014 Lipid panel [AGGREGATE] *Lipid Profile [facility] Work Phone: Start: 01-06-2013 End: 01-06-2013 Urinalysis nonauto w/o scope UA Dipstick (Office) [facility] Work Phone: Start: 12-17-2012 End: 12-17-2012 Follow Up Appt 3 months Follow Up Appt 3 months [facility] Work Phone: Start: 12-17-2012 End: 12-17-2012 Mammogram, Screening, both breasts Mammogram, Screening, both breasts [facility] Work Phone: Start: 09-18-2011 End: 09-22-2011 Prev visit, est, age 40-64 Preventive, Est, 40-64 yr [facility] Work Phone: Start: 07-04-2011 End: 07-04-2011 Follow up Appt 1 week Follow up Appt 1 week [facility] Work Phone: Start: 09-15-2010 End: 07-04-2011 Follow Up as scheduled Follow Up as scheduled [facility] Work Phone: Start: 07-19-2010 End: 07-19-2010 Follow Up Appt 6 months Follow Up Appt 6 months [facility] Work Phone: Start: 12-20-2009 End: 12-20-2009 Follow Up Appt 3 months Follow Up Appt 3 months [facility] Work Phone: Start: 12-07-2009 End: 12-07-2009 Follow Up Appt 1 month Follow Up Appt 1 month [facility] Work Phone: Patient Education Kitty Meraz 2019 (COVID-19): Caring for Yourself or Others ED CYSTITIS Female Adult [facility] Work Phone: Patient referral [facility] Work Phone: Payers Date Payer Category Payer Medicare [id number] 2024 Self-pay [id number] 2024 Unknown [id number] 2022 Unknown [id number] 1960 Unknown [id number] Private Health Insurance [id number] Unknown [id number] Unknown [id number] 2.16.8 [id number] Unknown [id number] 2.16.8 [id number] Unknown [id number] 2.16.8 [id number] Unknown [id number] 2.16.8 [id number] Unknown [id number] 2.16.8 [id number] Unknown [id number] 2.16.8 [id number] Unknown [id number] 2.16.8 [id number] Social History Date Type Detail Facility Start: 11-09-2021 End: 11-09-2021 Tobacco smoking status MDIS Unknown if ever smoked [facility] Start: 1960 Sex Assigned At Female W [facility] Start: 11-09-2021 Tobacco smoking stat us MDIS Smokes tobacco daily (finding) [facility] Mental Status Date Assessment Result Facility 11-09-2021 Cognitive function Level Of Cons ciousness Awake;Alert;Appropriate;Follow s Commands [facility] Work Phone: Evaluation + Plan note Note Date & Type Note Facility Evaluation + Plan note No data available for this section [facility] Evaluation note Note Date & Type Note Facility Evaluation note No assessment information availa [facility] Work Phone: Hospital Discharge instructions Note Date & Type Note Facility Hospital Discharge instructions No data available for this section [facility] Progress note Note Date & Type Note Facility Progress note No data available for this section [facility] Reason for referral (narrative) Note Date & Type Note Facility Reason for referral (narrative) No reason for referral information available [facility] Work Phone: Chief Complaint and Reason for Visit Chief Complaint SCREENING syncope Chief Complaint LABS AND XRAY- BACK PAIN Advance Directives No Advanced Directives Records Found Advance Directive Response Recorded Date/ Time Living Will No November 09, 2021 7:17am Power of Accountant Manager No November 09 7:17am Advance Directive Response Recorded Date/ Time Living Will No November 09, 2021 6:17am Power of Accountant Manager No November 09 6:17am Summary Purpose Family History No Family History Records FoundNo Family History Records Found Additional Source Comments Goals (unrecognized section and content) Goals may be documented in a n alternate sectionGoals may be documented in an alternate section No data available for this sectionGoals may be documented in an alternate sectionGoals may be documented in an alternate section Care Team (unrecognized sect ion and content) Care Team Personnel Name: REFERRING, PHY WO ID Position: Physician Member Role: Primary Care Physician INFORMATION SOURCE (unrecogn ized section and content) DATE CREATED AUTHOR 09/25/2022 [facility] ([place]) DATE CREATED AUTHOR AUTHOR'S ORGANIZ ATION 02/24/2025 [facility] Care Teams (unrecognized sec tion and content) Team Status: Active Member Role Status Dates Dr. Adriano Patel DO Family Provider Active Dr. Adriano Patel DO Primary Care Provider Active Team Status: Inactive Member Role Status Dates Dr. Adriano Patel DO Primary Care Prov ider, Attending Provider, Referring Provider Active Team Status: Active Member Role/Relationship Status Dates Dr. Adriano Patel DO Primary Care Provider Active Team Status: Inactive Member Role/Relationship Status Dates Dr. Adriano Patel DO Primary Care Provider Active Start: February 12, 2025 End: February 12, 2025 Dr. Adriano Patel DO Attending Provider Active Start: February 12, 2025 End: February 12, 2025 Team Status: Active Member Role/Relationship Status Dates Dr. Adriano Patel DO Primary Care Provider Active Start: February 19, 2025 Dr. Adriano Patel DO Attending Provider Active Start: February 19, 2025 FOR RECORDS PERTAINING TO PATIENTS WHO ARE OR HAVE BEEN ENROLLED IN A CHEMICAL DEPENDENCY/SUBSTANCEABUSE PROGRAM, SOME INFORMATION MAY BE OMITTED. This clinical summary was aggregated from multiple sources. Caution should be exercised in using it in the provision of clinical care. This summary normalizes information from multiple sources, and as a consequence, information in this document may materially change the coding, format and clinical context of patient data. In addition, data may be omitted in some cases. CLINICAL DECISIONS SHOULD BE BASED ON THE PRIMARY CLINICAL RECORDS. [facility]. provides no warranty or guarantee of the accuracy or completeness of information in this document.
[2025-02-25 07:29] LABS: Hematocrit 49.0 % (37-47); Hemoglobin 16.2 g/dL (12.0-15.0); Immature Granulocytes Count 0.070 X10^3/uL (0.0-0.0); Mean Corp Hgb Conc 33.1 g/dL (32-36); Mean Corpuscular Volume 83.8 fL (81-99); Mean Platelet Vol. 9.1 fl (6.2-12.0); NRBC Flagged by Analyzer 0.2 % (0-5); Platelet Count 263 K/mm3 (150-450); RBC Distribution Width CV 13.6 % (11.6-14.6); RBC Distribution Width SD 42.1 fl (35.1-43.9); Red Blood Count 5.85 M/mm3 (4.2-5.4); White Blood Count 8.7 K/mm3 (4.4-11.0)
--- NOTE | 2025-02-25 07:31 | EX.ED.GENINJ ---
HPI History of Present Illness Chief Complaint: Nausea/Vomiting Narrative Narrative: Chief complaint and HPI: 64-year-old female with past medical history of hypothyroidism, GERD, CHF presents for evaluation of nausea, lightheadedness, bilateral lower extremity swelling. Patient states she she recently had a switch in her medication. States she was originally on Lasix and potassium replacement however given increases in her potassium she was taken off of Lasix and potassium and placed on lisinopril hydrochlorothiazide. Patient states she has bilateral lower extremity edema but is unsure if she has had any weight gain. She states for the past several days she has had nausea, lightheadedness, general malaise. She denies any fever, chills, shortness of breath, chest pain, abdominal pain, dysuria, URI symptoms, cough. Review of systems: See HPI Medications: As listed on the chart Allergies: As listed on the chart PFSH: Per chart Vital signs: As listed on the chart. Reviewed. Physical exam: Gen: A&O x3, NAD Head: Normocephalic, atraumatic Eyes: No sclera icterus, conjunctiva clear ENT: Moist mucous membranes Neck: Trachea midline, No JVD CV: RRR, no murmurs, + 1 pitting peripheral edema from the feet to the mid calf Resp: Lungs decreased in the bilateral bases, on nasal cannula GI: Abd soft, non-distended, non-tender, no r/r/g Musc: Moves all extremities, no deformity Skin: Warm, dry Neuro: Alert, oriented, grossly intact, sensation intact Psych: Cooperative, appropriate mood and affect [facility] History Hx of gastroesophageal reflux (GERD) Hypothyroidism Home Medications ?Medication ?Instructions ?Recorded ?Last Taken ?Type pantoprazole 40 mg tablet,delayed 40 mg PO DAILY 12/18/16 Unknown History release levothyroxine 150 mcg tablet 150 mcg PO DAILY 09/13/19 Unknown History (Synthroid) sulfamethoxazole 800 1 tab PO BID #6 tabs 11/09/21 Unknown Rx mg-trimethoprim 160 mg tablet (Bactrim DS) Allergy/AdvReac Type Severity Reaction Status Date / Time amoxicillin Allergy Unknown Verified 02/25/25 06:52 Penicillins Allergy Unknown Verified 02/25/25 06:52 azithromycin (From Zithromax AdvReac Rash Verified 02/25/25 06:52 Z-Jl) cephalexin (From Keflex) AdvReac Rash Verified 02/25/25 06:52 erythromycin base AdvReac Rash Verified 02/25/25 06:52 Social History Smoking Status: Current every day smoker tobacco type: cigarettes EXAM Physical Exam Const Vital Signs: 02/25/25 06:52 02/25/25 07:02 02/25/25 07:09 Temperature 97.6 F L Temperature Source Oral Respiratory Rate 19 H Blood Pressure 200/137 H Blood Pressure Mean 158 Pulse Ox 83 97 80 Oxygen Delivery Method Nasal Cannula Room Air Oxygen Flow Rate (L/min) 3 MDM MDM MDM Narrative Medical decision making narrative: 64-year-old female with past medical history of hypothyroidism, GERD, CHF presents for evaluation of nausea, lightheadedness, bilateral lower extremity swelling. Patient states she she recently had a switch in her medication. States she was originally on Lasix and potassium replacement however given increases in her potassium she was taken off of Lasix and potassium and placed on lisinopril hydrochlorothiazide. On presentation, patient is hypertensive and hypoxic on room air. States she usually does not wear her oxygen. Patient placed on nasal cannula. Given hydralazine for blood pressure. Differential diagnosis includes but is not limited to CHF exacerbation, hypertension urgency/emergency, electrolyte abnormality, dehydration, pneumonia although suspect less likely given the HPI, low suspicion for intracranial abnormality or head bleed however on the differential given blood pressure and dizziness, UTI. Zofran ordered for nausea. Patient not endorsing abdominal pain therefore I do not think any CT abdomen pelvis is needed. Laboratory workup ordered including CT head and chest x-ray. EKG and chest x-ray reviewed. CBC without leukocytosis. Patient has hemoconcentration of 16.2. Platelets unremarkable. BMP shows hyponatremia at 112. This is likely the source of her dizziness. Previous sodium on 02/19 was 127 this is likely secondary to her diuretics. Potassium is mildly elevated at 5.5. No DEBORAH. BNP is elevated at 5756. This is increased from 02/19. Patient in CHF exacerbation. She is intravascularly depleted although extravascular Frida overloaded. Will hold off on Lasix given the hyponatremia. Will give a [address] of the head negative for intracranial abnormality. 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 No change. On reevaluation, patient is alert and oriented x 3. Patient will warrant admission for CHF and hyponatremia. I spoke with the hospitalist service, Dr. Yi. Before patient is admitted he would like to get a repeat BMP after fluids to assess sodium. If it remains above 112. Patient can go to the PCU. He will come evaluate the patient. Patient was updated all the plan and confirmed understanding. EKG: Interpreted by me/EM physician: EKG shows normal sinus rhythm without any acute ischemic changes. Heart rate 78. Diagnostic: Interpreted by me/EM physician: Chest x-ray with cardiomegaly and bilateral effusions. Pulmonary congestion. Radiology in agreement. Impression: 1. CHF exacerbation with bilateral effusion 2. Acute hypoxia requiring nasal cannula secondary to #1 3. Severe hyponatremia likely secondary to diuretics 4. Hyperkalemia Lab Data Labs: Laboratory Results - last 24 hr 02/25/25 07:18 WBC 8.7 RBC 5.85 H Hgb 16.2 H Hct 49.0 H MCV 83.8 MCH 27.7 MCHC 33.1 RDW Std Deviation 42.1 RDW Coeff of Aury 13.6 Plt Count 263 MPV 9.1 Immature Gran % (Auto) 0.800 Neut % (Auto) 71.2 H Lymph % (Auto) 14.9 L [place] % (Auto) 12.6 H Eos % (Auto) 0.0 Baso % (Auto) 0.5 Absolute Neuts (auto) 6.2 Absolute Lymphs (auto) 1.29 Nucleated RBC % 0.2 Sodium 112 L* Potassium 5.5 H Chloride 78 L Carbon Dioxide 20.7 L Anion Gap 13 BUN 11 Creatinine 0.70 Estim Creat Clear Calc 91.90 Est GFR (MDRD) Non-Af 96 BUN/Creatinine Ratio 15.4 Glucose 112 H Calcium 9.2 Total Bilirubin 0.67 AST 31 ALT 26 Alkaline Phosphatase 106 H NT pro BNP II 5756 H Total Protein 7.3 Albumin 3.8 Globulin 3.5 Albumin/Globulin Ratio 1.1 Radiography Diagnostic Testing: Clinical Impression(s) from Imaging Studies Brain CT 02/25/25 07:07 IMPRESSION: 1. No evidence of intracranial hemorrhage or acute ischemia. 2. Changes of chronic microvascular ischemia and volume loss. 3. 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 No change. Reading Location: [facility] Chest X-Ray 02/25/25 08:08 IMPRESSION: Cardiac enlargement. Likely pericardial effusion. Bibasilar atelectasis and small effusions. Mild congestion. Consider echocardiogram. Emphysema Reading Location: [facility] Discharge Plan Triage Chief Complaint: Nausea/Vomiting ED Provider: Flip Silva Dx/Rx/DC Orders Prescriptions: No Action levothyroxine [Synthroid] 150 mcg tablet 150 mcg PO DAILY pantoprazole 40 MG tablet 40 mg PO DAILY sulfamethoxazole-trimethoprim [Bactrim DS] 800-160 mg tablet 1 tab PO BID Qty: 6 0RF Primary Care Provider: Adriano Patel Referrals: Adriano Patel DO [Primary Care Provider] - Print Language: Malay
[2025-02-25 08:08] LABS: Pro- Brain NATRIURETIC PEPTIDE 5756 pg/mL (<=900)
--- NOTE | 2025-02-25 08:08 | RAD_ITS ---
PROCEDURE: CHEST PA AND LATERAL 02/25/2025 REASON FOR EXAM: HISTORY OF HEART FAILURE TECHNIQUE: CHEST PA AND LATERAL COMPARISON: November 09, 2021 FINDINGS: Hardware: EEG leads Heart: Enlarged. There is likely a pericardial effusion. Mediastinum: Sliding hiatus hernia is present. Patient has a known left-sided arch with aberrant right subclavian. Lungs: Bibasilar atelectasis and small effusions. There may be very mild central congestion. Bones: Degenerative changes are identified within the thoracic spine. RAD/Chest PA and Lateral IMPRESSION: Cardiac enlargement. Likely pericardial effusion. Bibasilar atelectasis and small effusions. Mild congestion. Consider echocard iogram. Emphysema Reading Location: [id number]
[2025-02-25 08:27] LABS: AST(SGOT) 31 U/L (<=31); Alanine Aminotransfer ALT/SGPT 26 U/L (<=34); Albumin, Serum 3.8 g/dL (3.4-4.8); Alkaline Phosphatase 106 U/L (35-104); Anion Gap 13 (5-15); BUN 11 mg/dL (4-19); BUN/Creat Ratio 15.4 RATIO (10-20); Calcium,Total 9.2 mg/dL (7.6-11.0); Carbon Dioxide 20.7 mmol/L (21.0-32.0); Chloride 78 mmol/L (98-108); Estimated Creatinine Clearance 91.90 ml/min (50-250); Globulin 3.5 g/dL (2.2-4.2); Glucose 112 mg/dL (70-99); Potassium 5.5 mmol/L (3.3-5.1)
--- NOTE | 2025-02-25 08:54 | HP.PCM.HOS_ITS ---
HPI - General General Date of Admission: 02/25/25 Date of Service: 02/25/25 Chief Complaint: Generalized weakness, nausea and dizziness. HPI Narrative HILTON SEVILLA, is a 64 F with multiple comorbidities came to ED with nausea, dizziness/lightheadedness bilateral lower extremities swelling. She was seen by her PCP about a week ago and recently was started on 2 new medications. Initially she was on furosemide and potassium and was taken off due to increasing potassium and started on lisinopril and HCTZ but she did not take it since Sunday for last 2 days. Patient also complain of shortness of breath mainly on walking/exertion and she has not been walking outside home or even gets dyspneic on walking to bathroom. Denies chest pain pressure or tightness. She further states he has mild burning pain at night but her urine output has also decreased probably Lasix was changed to HCTZ In ED, she was found severely hyponatremic, sodium 112 but denies any acute change in mental status including confusion disorientation/change in awareness or alertness or headache or seizure. Previous sodium was 127 on 02/19. [facility] Medical History Hx of gastroesophageal reflux (GERD) Hypothyroidism Home Medications ?Medication ?Instructions ?Recorded ?Last Taken ?Type pantoprazole 40 mg tablet,delayed 40 mg PO DAILY stoma ch 12/18/16 Unknown History release levothyroxine 150 mcg tablet 150 mcg PO DAILY thyrdoid 09/13/19 Unknown History (Synthroid) Allergy/AdvReac Type Severity Reaction Status Date / Time amoxicillin Allergy Unknown Verified 02/25/25 06:52 Penicillins Allergy Unknown Verified 02/25/25 06:52 azithromycin (From Zithromax AdvReac Rash Verified 02/25/25 06:52 Z-Jl) cephalexin (From Keflex) AdvReac Rash Verified 02/25/25 06:52 erythromycin base AdvReac Rash Verified 02/25/25 06:52 Social History Smoking Status: Current every day smoker tobacco type: cigarettes ROS ROS Narrative Constitutional: Reports fatigue and weakness. No fever. HEENT: Reports systems reviewed and no addt'l complaints, except as documented Respiratory/Chest: Shortness of breath as described in HPI CVS: Denies chest pain or pressure Gastrointestinal: Denies coffee ground emesis, hematemesis or vomiting Genitourinary: Dysuria/burning pain. Rest as described in HPI Musculoskeletal: Denies acute joint pain or limited range of motion. No acute injury Neurologic: Denies seizure-like symptoms. skin: No ulcer. No rash Endocrinology: Reports systems reviewed and no addt'l complaints, except as documented Hematologic/Lymphatic: Reports systems reviewed and no addt'l complaints, except as documented Rest 14 ROS are negative except as mentioned in HPI Vital Signs Vital Signs Vital Signs: 02/25/25 06:52 02/25/25 07:02 02/25/25 07:09 Temperature 97.6 F L Temperature Source Oral Respiratory Rate 19 H Blood Pressure 200/137 H Blood Pressure Mean 158 Pulse Ox 83 97 80 Oxygen Delivery Method Nasal Cannula Room Air Oxygen Flow Rate (L/min) 3 Weight Weight: 214 lb 4.629 oz Body Mass Index (BMI) 36.8 Physical Exam Narrative General: Alert, Oriented x3, Cooperative HEENT: Atraumatic, PERRLA, EOMI, Normocephalic. Oral: Oral mucosa dry no Gingival or Mucosal Lesions/ Ulcerations Neck: Supple, elevated JVD, Negative Carotid Bruits Chest wall/Lungs: Air entry diminished in bilateral lung bases. Bilateral fine crepitations Cardiovascular: Regular rate and rhythm, soft heart sound no M/G/R Abdomen: Bowel Sounds Present, Soft, Non Tender, Non-Distended : No dysuria. No renal angle tenderness. No suprapubic tenderness. Extremities: 2+ lower extremity pitting edema, Capillary Refill Less than 3 Seconds Skin: No rashes, No breakdown Musculoskeletal: No Tenderness to Palpation of Joints or Extremities Neurological: Cranial nerves II-XII grossly intact, DTR 2+/4. No acute focal neurological deficit. Psych/Mental Status: Flat affect Results Lab / Micro Data 02/25/25 07:18 02/25/25 07:18 Labs: Laboratory Results - last 24 hr 02/25/25 07:18: WBC 8.7, RBC 5.85 H, Hgb 16.2 H, Hct 49.0 H, MCV 83.8, MCH 27.7, MCHC 33.1, RDW Std Deviation 42.1, RDW Coeff of Aury 13.6, Plt Count 263, MPV 9.1, Immature Gran % (Auto) 0.800, Neut % (Auto) 71.2 H, Lymph % (Auto) 14.9 L, [place] % (Auto) 12.6 H, Eos % (Auto) 0.0, Baso % (Auto) 0.5, Absolute Neuts (auto) 6.2, Absolute Lymphs (auto) 1.29, Nucleated RBC % 0.2, Sodium 112 L*, Potassium 5.5 H, Chloride 78 L, Carbon Dioxide 20.7 L, Anion Gap 13, BUN 11, Creatinine 0.70, Estim Creat Clear Calc 91.90, Est GFR (MDRD) Non-Af 96, BUN/Creatinine Ratio 15.4, Glucose 112 H, Calcium 9.2, Total Bilirubin 0.67, AST 31, ALT 26, A lkaline Phosphatase 106 H, NT pro BNP II 5756 H, Total Protein 7.3, Albumin 3.8, Globulin 3.5, Albumin/Globulin Ratio 1.1 Imaging Radiology Impression Brain CT 02/25/25 07:07 IMPRESSION: 1. No evidence of intracranial hemorrhage or acute ischemia. 2. Changes of chronic microvascular ischemia and volume loss. 3. 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 No change. Reading Location: [facility] Chest X-Ray 02/25/25 08:08 IMPRESSION: Cardiac enlargement. Likely pericardial effusion. Bibasilar atelectasis and small effusions. Mild congestion. Consider echocardiogram. Emphysema Reading Location: [facility] Assessment & Plan Assessment/Plan (1) CHF exacerbation: (2) Hyponatremia: PLAN: Plan 64 old female came to ED with leg swelling nausea and lightheadedness and dyspnea on exertion. Serum sodium 112 1. Acute on chronic CHF exacerbation: Patient be admitted to PCU. Chest x-ray reviewed and shows mild pulmonary venous congestion and lower lobes atelectasis. Twelve-lead EKG individually reviewed, NSR low voltage QRS 78 beats minute. QTc 444 ms. Low-dose Lasix 20 mg IV twice daily. Heart failure core measures including intake and output, fluid restriction less than 1500 mL, daily weight monitoring, kidney and electrolytes monitoring. 2D echo is ordered. 2. Severely hyponatremic hypervolemic hypotonic hyponatremia probably due to HCTZ/medication: Serum sodium was 127 on 02/19 about 1 week ago and today 112. Patient had IV fluid normal saline 500 mL bolus in the ED. Repeat serum sodium stat ordered. E Marketing Specialist consulted. urine lites ordered. Serum TSH and serum cortisol tomorrow a.m. 3. Suspicion of UTI: Urine culture ordered. Empiric IV ceftriaxone ordered. 4. Hypertension: BP was very high at 200/137. It looks patient was started on HCTZ and lisinopril a week ago but his home medications does not show these medications. Continue lisinopril. Hold HCTZ 5. Hypothyroidism: TSH and free T4 tomorrow a.m. 6. GERD: On PPI continued 7. DVT prophylaxis moderate risk: Lovenox 40 mL subcu daily ordered. Living will/advanced directive/end of life care: Patient does not have living will or advanced directive. She does not have diabetes or power of claims attorney for health but her sitting in the ED is next to kin after discussion of benefits/risks procedures involved with full code, DNR CC arrest and DNR CC, the patient opted for DNR CC arrest with no intubation Patient doesn't want artificial life support including intubation, tube feed, ventilator and/chest compression, central venous catheter, vasopressor and DC shock if needed Total time spent in [id number] encounter in discussion of advanced directive 17 minutes. Laboratory Results 02/25/25 07:18: WBC 8.7, RBC 5.85 H, Hgb 16.2 H, Hct 49.0 H, MCV 83.8, MCH 27.7, MCHC 33.1, RDW Std Deviation 42.1, RDW Coeff of Aury 13.6, Plt Count 263, MPV 9.1, Immature Gran % (Auto) 0.800, Neut % (Auto) 71.2 H, Lymph % (Auto) 14.9 L, [place] % (Auto) 12.6 H, Eos % (Auto) 0.0, Baso % (Auto) 0.5, Absolute Neuts (auto) 6.2, Absolute Lymphs (auto) 1.29, Nucleated RBC % 0.2, Sodium 112 L*, Potassium 5.5 H, Chloride 78 L, Carbon Dioxide 20.7 L, Anion Gap 13, BUN 11, Creatinine 0.70, Estim Creat Clear Calc 91.90, Est GFR (MDRD) Non-Af 96, BUN/Creatinine Ratio 15.4, Glucose 112 H, Calcium 9.2, Total Bilirubin 0.67, AST 31, ALT 26, A lkaline Phosphatase 106 H, NT pro BNP II 5756 H, Total Protein 7.3, Albumin 3.8, Globulin 3.5, Albumin/Globulin Ratio 1.1 02/25/25 09:00: Urine Color Yellow, Urine Clarity Sl. Cloudy, Urine pH 6.0, Ur Specific [place] 1.015, Urine Protein 100 H, Urine Glucose (UA) Normal, Urine Ketones 5 H, Urine Occult Blood Negative, Urine Nitrite Negative, Urine Bilirubin Negative, Urine Urobilinogen 1 H, Ur Leukocyte Esterase 500 H, Urine RBC 0 SEEN, Urine WBC 5-10 SEEN, Ur Squamous Epith Cells 5-10 SEEN, Urine Bacteria 2+, Urine Mucus 0 SEEN 02/25/25 10:59: Cortisol AM Sample Pending Charges/Coding Visit Charges Inpatient E&M: 16374 Init Hosp L3 Procedures Hospitalists Procedures: 39413 Advncd Care Plan 30 Min
[2025-02-25] MEDS: 0.9% Normal Saline (500mL Bag) 500 ML 1000 ML IV (09:12)
[2025-02-25 09:17] LABS: Mucous, Urine 0 SEEN /hpf (<or=2+); Red Blood Cells-Urine 0 SEEN /hpf (0-5)
[2025-02-25 09:23] LABS: Color, Urine Yellow (Yellow); Glucose, Dipstick Normal (Normal); Ketone-Dipstick 5 mg/dl (Negative); Leukocyte Esterase-Dipstick 500 /ul (Negative); Nitrite-Dipstick Negative (Negative); Occult Blood-Urine Negative /ul (Negative); Protein-Dipstick 100 mg/dl (Negative); Specific Gravity, Urine 1.015 (1.002-1.030); Urine Bilirubin Dipstick Negative (Negative)
[2025-02-25 09:39] LABS: Squamous Epithelial Cells - UA 5-10 SEEN /hpf (5-10)
--- NOTE | 2025-02-25 10:34 | ECHOD_ITS ---
Reason For Study Reason For Study: SOB/ CHF Procedure This was a 2D Doppler, Color Flow transthoracic echocardiogram. Exam performed portable in patient room. Left Ventricle Normal LV size. Mild concentric left ventricular hypertrophy. The estimated ejection fraction is 55 %. Stage 1 diastolic dysfunction. Right Ventricle Moderately dilated right ventricle. RVDd 4.7 cm. Mildly decreased right ventricular systolic function. Atria Normal left atrium. The right atrium is mildly enlarged. Mitral Valve The mitral valve is structurally normal. No prolapse or stenosis seen. Trivial mitral valve insufficiency. Tricuspid Valve Mild tricuspid valve insufficiency. Right ventricular systolic pressure estimated to be 45 mmHg. Based on estimated RA pressure 15 mmHg due to dilated IVC with lack of respiratory variation. Aortic Valve The aortic valve is not well visualized. There is no aortic stenosis. Pulmonic Valve Trivial pulmonic valve insufficiency. Great Vessels Normal sized aortic root. No collapse of the inferior vena cava. The inferior vena cava is dilated. 2.5 cm. Pericardium/Pleural Moderate (1.0-2.0 cm) pericardial effusion. Measuring 2 cm posteriorly and 1.3 cm anteriorly with a maximum 2.6 cm at the RA level. No tamponade parameters identified based on the AV inflow filling and lack of respiratory variation. There are no echocardiographic indications of cardiac tamponade. MMode/2D Measurements & Calculations LVIDd: 4.5 cm IVSd: 1.4 cm LVOT diam: 2.0 cm LVIDs: 3.0 cm LVPWd: 1.1 cm LVOT area: 3.0 cm2 RVDd: 4.7 cm FS: 32.7 % asc Aorta Diam: 3.4 cm LAV(MOD-bp): 29.7 ml LVAd ap4: 22.4 cm2 LAV(MOD-bp) Indexed: 14.8 ml/m2 LVLd ap4: 7.1 cm LAV(MOD-sp2): 29.1 ml EDV(MOD-sp4): 58.1 ml LAV(MOD-sp4): 29.9 ml EDV(sp4-el): 60.1 ml LVAs ap4: 12.8 cm2 LVLs ap4: 6.2 cm ESV(MOD-sp4): 23.1 ml ESV(sp4-el): 22.5 ml EF(MOD-sp4): 60.3 % EF(sp4-el): 62.5 % LVAd ap2: 25.1 cm2 SV(MOD-sp4): 35.0 ml SV(MOD-sp2): 44.5 ml LVLd ap2: 7.4 cm SI(MOD-sp4): 17.4 ml/m2 SI(MOD-sp2): 22.1 ml/m2 EDV(MOD-sp2): 69.4 ml EDV(sp2-el): 72.2 ml LVAs ap2: 13.0 cm2 LVLs ap2: 5.8 cm ESV(MOD-sp2): 24.9 ml ESV(sp2-el): 24.8 ml EF(MOD-sp2): 64.1 % SV(sp4-el): 37.6 ml Ao sinus diam: 3.[address] Junction: 2.6 cm LA dimension(2D): 4.1 cm LA A4 area: 13.5 cm2 RA A4 area: 13.2 cm2 TAPSE: 1.8 cm Time Measurements MV dec time: 0.25 sec Doppler Measurements & Calculations MV E max gurpreet: 67.7 cm/sec Lat Peak E' Gurpreet: 7.6 cm/sec Med Peak E' Gurpreet: 6.3 cm/sec MV A max gurpreet: 95.6 cm/sec E/E' lat: 8.9 E/E' med: 10.8 MV E/A: 0.71 MV dec slope: 268.3 cm/sec2 Ao V2 max: 174.7 cm/sec LV V1 max: 141.2 cm/sec Ao max P.2 mmHg LV V1 max P.0 mmHg Ao V2 mean: 111.8 cm/sec LV V1 mean P.1 mmHg Ao mean P.8 mmHg LV V1 mean: 111.0 cm/sec Ao V2 VTI: 30.3 cm LV V1 VTI: 23.8 cm AV (velocity ratio): 0.78 CHELSEA(I,D): 2.4 cm2 CHELSEA(V,D): 2.4 cm2 SV(LVOT): 71.6 ml PA V2 max: 101.3 cm/sec TR max gurpreet: 288.1 cm/sec TR max P.2 mmHg ECHO/Echo Complete Interpretation Summary Normal LV size. Mild concentric left ventricular hypertrophy. The estimated ejection fraction is 55 %. Stage 1 diastolic dysfunction. Moderately dilated right ventricle. Mildly decreased right ventricular systolic function There is moderate size pericardial effusion with no echocardiographic indicatio n of cardiac tamponade, Measuring 2 cm posteriorly and 1.3 cm anteriorly with a maximum 2.6 cm at the R A level. No tamponade parameters identified based on the AV inflow filling and lack of respiratory variation Mild tricuspid valve insufficiency. Right ventricular systolic pressure estimated to be 45 mmHg based on estimated RA pressure 15 mmHg due to dilated IVC with lack of respiratory variation Ordering Physician: Medhat Yi Referring Physician: TAYLOR PARK Performed By: Heather Rodriguez RDCS
[2025-02-25 12:09] LABS: CORTISOL AM 26.50 ug/dL (6.02-18.40)
--- NOTE | 2025-02-25 12:16 | PCM.CONS.R ---
Assessment & Plan Assessment/Plan (1) Hyponatremia: PLAN: Plan This is a 64-year-old female with past medical history significant for hypothyroidism, GERD, CHF who presented to the emergency room with complaints of nausea, feeling unwell with few episodes of vomiting. Serum sodium in ER 112. Per patient no recent falls, confusion. Patient alert and oriented. Reviewing past baseline sodium trends patient has had low sodium dating back to around 2019 with baseline sodium ranging around 127-134. On February 19, 2025 sodium 127. We will frequently monitor serum sodium trends so to avoid rapid sodium correction, serum sodium check ordered every 4hr. Repeat serum sodium is pending now. Serum and urine osmolality pending. Urine electrolytes pending. Patient received small fluid bolus 500 mL normal saline in the ER. She is now on Lasix 20 mg IV twice daily and salt tablets. Discussed with patient importance of restricting fluids for now and increasing solute intake. Further orders forthcoming as hospitalization evolves, thank you for allowing us to participate in the care of Ms. Luna. Assessment and plan reviewed with Dr. Mijares. HPI Consult Data Date of Consult: 02/25/25 HPI Narrative HPI Narrative: HILTON LUNA, is a 64 F with past medical history significant for GERD, hypothyroidism, congestive heart failure who presented to the emergency room with complaints of nausea, feeling unwell with few episodes of vomiting. Workup in the emergency room showed sodium of 112. Nephrology consulted in view of hyponatremia. Patient reports that she recently saw her primary care physician she had been on Lasix and oral potassium supplement but recent lab work showed a higher potassium therefore Lasix was stopped and patient was switched to lisinopril/hydrochlorothiazide. Patient reports since seeing her primary care provider she had been feeling unwell with above complaints and never started taking lisinopril/hydrochlorothiazide. Patient reports over the past few days she noticed to be more thirsty than normal and had been drinking multiple glasses of water per day. Patient reports she had not been eating much food intake. She denies any other new medications. [facility] Medical History Hx of gastroesophageal reflux (GERD) Hypothyroidism Home Medications ?Medication ?Instructions ?Recorded ?Last Taken ?Type pantoprazole 40 mg tablet,delayed 40 mg PO DAILY stomach 12/18/16 Unknown History release levothyroxine 150 mcg tablet 150 mcg PO DAILY thyrdoid 09/13/19 Unknown History (Synthroid) Allergy/AdvReac Type Severity Reaction Status Date / Time amoxicillin Allergy Unknown Verified 02/25/25 06:52 Penicillins Allergy Unknown Verified 02/25/25 06:52 azithromycin (From Zithromax AdvReac Rash Verified 02/25/25 06:52 Z-Jl) cephalexin (From Keflex) AdvReac Rash Verified 02/25/25 06:52 erythromycin base AdvReac Rash Verified 02/25/25 06:52 Social History Smoking Status: Current every day smoker tobacco type: cigarettes ROS ROS Narrative As per HPI Physical Exam Narrative Alert and oriented x 3, no apparent distress S1, S2, RRR Coarse breath sounds anteriorly and posteriorly, on O2 per nasal cannula abdomen soft, nontender Trace edema bilateral lower leg Lab / Micro Data 02/25/25 07:18 02/25/25 07:18 Labs: Laboratory Results - last 24 hr 02/25/25 07:18: WBC 8.7, RBC 5.85 H, Hgb 16.2 H, Hct 49.0 H, MCV 83.8, MCH 27.7, MCHC 33.1, RDW Std Deviation 42.1, RDW Coeff of Aury 13.6, Plt Count 263, MPV 9.1, Immature Gran % (Auto) 0.800, Neut % (Auto) 71.2 H, Lymph % (Auto) 14.9 L, [facility] % (Auto) 12.6 H, Eos % (Auto) 0.0, Baso % (Auto) 0.5, Absolute Neuts (auto) 6.2, Absolute Lymphs (auto) 1.29, Nucleated RBC % 0.2, Sodium 112 L*, Potassium 5.5 H, Chloride 78 L, Carbon Dioxide 20.7 L, Anion Gap 13, BUN 11, Creatinine 0.70, Estim Creat Clear Calc 91.90, Est GFR (MDRD) Non-Af 96, BUN/Creatinine Ratio 15.4, Glucose 112 H, Calcium 9.2, Total Bilirubin 0.67, AST 31, ALT 26, Alkaline Phosphatase 106 H, NT pro BNP II 5756 H, Total Protein 7.3, Albumin 3.8, Globulin 3.5, Albumin/Globulin Ratio 1.1 02/25/25 09:00: Urine Color Yellow, Urine Clarity Sl. Cloudy, Urine pH 6.0, Ur Specific [place] 1.015, Urine Protein 100 H, Urine Glucose (UA) Normal, Urine Ketones 5 H, Urine Occult Blood Negative, Urine Nitrite Negative, Urine Bilirubin Negative, Urine Urobilinogen 1 H, Ur Leukocyte Esterase 500 H, Urine RBC 0 SEEN, Urine WBC 5-10 SEEN, Ur Squamous Epith Cells 5-10 SEEN, Urine Bacteria 2+, Urine Mucus 0 SEEN 02/25/25 10:07: Sodium Cancelled, Potassium Cancelled, Chloride Cancelled, Carbon Dioxide Cancelled, Anion Gap Cancelled, BUN Cancelled, Creatinine Cancelled, Estim Creat Clear Calc Cancelled, Est GFR (MDRD) Non-Af Cancelled, BUN/Creatinine Ratio Cancelled, Glucose Cancelled, Calcium Cancelled, Magnesium Cancelled 02/25/25 10:59: Cortisol AM Sample 26.50 H Imaging Radiology Impression Brain CT 02/25/25 07:07 IMPRESSION: 1. No evidence of intracranial hemorrhage or acute ischemia. 2. Changes of chronic microvascular ischemia and volume loss. 3. 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 No change. Reading Location: [facility] Chest X-Ray 02/25/25 08:08 IMPRESSION: Cardiac enlargement. Likely pericardial effusion. Bibasilar atelectasis and small effusions. Mild congestion. Consider echocardiogram. Emphysema Reading Location: [facility] Echocardiogram 02/25/25 10:34 Interpretation Summary Normal LV size. Mild concentric left ventricular hypertrophy. The estimated ejection fraction is 55 %. Stage 1 diastolic dysfunction. Moderately dilated right ventricle. Mildly decreased right ventricular systolic function There is moderate size pericardial effusion with no echocardiographic indication of cardiac tamponade, Measuring 2 cm posteriorly and 1.3 cm anteriorly with a maximum 2.6 cm at the RA level. No tamponade parameters identified based on the AV inflow filling and lack of respiratory variation Mild tricuspid valve insufficiency. Right ventricular systolic pressure estimated to be 45 mmHg based on estimated RA pressure 15 mmHg due to dilated IVC with lack of respiratory variation Ordering Physician: Medhat Yi Referring Physician: TAYLRO PARK Performed By: Heather Rodriguez RDCS
[2025-02-25 13:12] LABS: Magnesium 2.0 mg/dL (1.5-2.2)
[2025-02-25 13:17] LABS: Anion Gap 15 (5-15); BUN 11 mg/dL (4-19); BUN/Creat Ratio 16.5 RATIO (10-20); Calcium,Total 9.0 mg/dL (7.6-11.0); Carbon Dioxide 22.3 mmol/L (21.0-32.0); Chloride 78 mmol/L (98-108); Estimated Creatinine Clearance 94.46 ml/min (50-250); Glucose 110 mg/dL (70-99); Potassium 5.2 mmol/L (3.3-5.1)
[2025-02-25] MEDS: Furosemide 20 MG/2 ML VIAL IV ×2 (13:21→17:20)
[2025-02-25] MEDS: 0.9% Saline Lock 10 ML Syringe IV ×2 (13:22→20:21)
--- NOTE | 2025-02-25 14:09 | CASEMGMT ---
Addendum entered by Reji Whittington 02/25/25 15:04: A list of HHC providers including quality and resource use data and consistent with the patient?s preferred geographic region, medical needs, and insurance network were provided from the [employer] Guide. Original Note: RN?CM?ASSESSMENT ? RN?CM?to room to meet with patient for initial transition planning/care coordination?assessment.?RN?CM?introduced self and role at [facility].? Pt voices understanding and consents to?assessment?at this time.? Pt resting in bed in no distress at this time.? Pt is A/O at this time and answers all questions appropriately.?? Care providers, pharmacy, and demographics verified/updated at this time. ? Strata: 1 PCP: Dr Patel Specialists: none Preferred Pharmacy: [facility] [place] [facility] Insurance: [facility] Prescription Benefit:?yes LNOK: , Paul Living Arrangements: Pt lives w/ in mobile home w/one step to enter. Independent w/ADL's & manages her own medications. Pt was independent w/IADL's up until about a week ago when she started not feeling well and SOB after medication was changed. Her has been assisting her in the home since then. Transportation:?Pt able to drive, but has not been driving for the past week d/t not feeling well. Her drives. DME: ?States has the following DME:?shower chair. ?Pt states may want a walker @ discharge. No home O2. Discussed possible need of home O2 @ dc and verbal review of DME companies provided. Pt prefers [employer] for O2 & walker, if either needed. She does not have a pulse ox. [facility]IC[facility] recommended pt to get one and she states she can afford this. HHC/SNF: No hx of either. Pt states she may be interested in HHC. Discussed [facility]'s homebound criteria. She states the way she is feeling today, she thinks she will be homebound for awhile once returning home, but she is not sure. She states she would like a HHC list to review for now. ? Pt wishes to return home and states has no concerns with going home at time of discharge. CM?to follow for home oxygen needs and any further discharge planning/needs.? Pt voices no further concerns/needs at this time.? Advised pt to ask for?CM?if any further questions/concerns/needs arise.? Voices understanding. ? PLAN:??Home w/possible HHC and possible home O2. ? Tariq BSN?RN?CM
--- OUTSIDE RECORDS SUMMARY | 2025-02-25 17:58 | XMS RPT_ITS | CCD ---
Author Organization [facility] [place] [facility] Care Team Providers Care Public Health Physician Name Role Phone Arsalan Vivas Unavailable [phone] Torri Boo LPN Unavailable Unavailab le Arsalan Vivas Unavailable [phone] REFERRING, PHY WO ID Primary Care Physician Unav ailable REFERRING, PHY WO ID Attending Unavailable REFERRING, PHY WO ID Primary Care Unavailable Dr. Adriano Patel DO Primary Care Provider Dr. Adriano Patel DO Attending Provider Adriano Patel Primary Care Unavailable Jorge, Adriano Referring Unavailable JorgeAdriano cannon Attending Unavailable Jorge, Adriano Primary Care Unavailable Jorge, Adriano Referring Unavailable Jorge, Adriano Attending Unavailable Jorge, Adriano Primary Care Unavailable Jorge, Adriano Attending Unavailable Jorge, Adriano Primary Care Unavailable Jorge, Adriano Attending Unavailable Jorge, Adriano Primary Care Unavailable Jorge, Adriano Referring Unavailable Jorge, Adriano Attending Unavailable Jorge, Adriano Primary Care Unavailable Jorge, Adriano Attending Unavailable Jorge, Adriano Referring Unavailable Jorge, Adriano Attending Unavailable Adriano Patel Primary Care Unavailable Dr. Flip Silva DO Emergency Provider Dr. Medhat Yi MD Admit Provider Kd HOANG, Dr. Meléndez Attending Provider Allergies Allergy Classification Reported Allergen(s) Allergy Type Date of Onset Reaction(s) Facility (3 sources) azithromycin drug allergy hives [facility] Work Phone: (3 sources) cephalexin drug allergy 3 hives [facility] Work Phone: (4 sources) erythromycin drug allergy 2 hives, Unknown [facility] Work Phone: (3 sources) penicillin v drug allergy hives [facility] Work Phone: (5 sources) Amoxicillin Drug Allergy 2 [facility] (5 sources) Azithromycin Drug Allergy 2 [facility] (5 sources) Cephalexin Drug Allergy 2 [facility] (5 sources) Erythromycin Drug Allergy 2 [facility] (6 sources) Penicillins; Translations: [Penicillins] Allergy to substance 2 Unknown [facility] (1 source) Amoxicillin Drug Allergy 2 [facility] Repository (1 source) Azithromycin Drug Allergy 2 [facility] Repository (1 source) Cephalexin Drug Allergy 2 [facility]ository (1 source) Erythromycin Drug Allergy 2 [facility] Repository Medications Current Medications Medication Drug Class(es) Dates Sig (Normalized) Sig (Original) levothyroxine sodium 0.15 mg oral tablet (5 sources) l-Thyroxine Start: 09-13-2019 take 1 tablet by mouth once daily Levothyroxine (Synthroid) 150 mcg tablet Active 150 ug PO DAILY September 13, 2019 1:00am thyrdoid pantoprazole 40 mg delayed release oral tablet (14 sources) Proton Pump Inhibitor Start: 12-18-2016 take 1 tablet by mouth once daily Pantoprazole 40 MG tablet Active 40 mg PO DAILY December 18, 2016 12:00am stomach Start: 12-17-2012 End: 03-29-2015 take 1 tablet by mouth once daily PANTOPRAZOLE SODIUM 40 MG TBEC One tablet by mouth daily PANTOPRAZOLE SODIUM [id number] Adriano Patel DO Completed/Discontinued Medications Medication Drug Class(es) Dates Sig (Normalized) Sig (Original) acetaminophen 300 mg / codeine phosphate 30 mg oral tablet (6 sources) Opioid Agonist Start: 09-15-2010 End: 07-04-2011 take 1 tablet by mouth every six hours as needed for pain TYLENOL WITH CODEINE #3 300-30 MG TABS one tablet by mouth every 6hr as needed pain ACETAMINOPHEN-CODE INE [id number] Butch Hogue MD Start: 09-15-2010 End: 07-04-2011 take 1 tablet by mouth every six hours as needed for pain TYLENOL WITH CODEINE #3 300-30 MG TABS one tablet by mouth every 6hr as needed pain ACETAMINOPHEN-CODEINE [id number] Butch Hogue MD Start: 09-15-2010 take 1 tablet by franchesca th every six hours as needed for pain TYLENOL WITH CODEINE #3 300-30 MG TABS one tablet by mouth every 6hr as needed pain ACETAMINOPHEN-CODEINE [id number] Butch Hogue MD aluminum hydroxide 80 mg/ml / magnesium hydroxide 80 mg/ml / simethicone 8 mg/ml oral suspension (6 sources) End: 12-20-2009 MAALOX MAX 400-400-40 MG/5ML SUSP 1 bottle every 2 days ALUM & MAG HYDROXIDE-SIMETH [id number] Melania K Angle MA MAALOX MAX 400-4 00-40 MG/5ML SUSP 1 bottle every 2 days ALUM & MAG HYDROXIDE-SIMETH [id number] Melania K Angle MA End: 12-20-2009 MAALOX MAX 400-400-40 MG/5ML SUSP 1 bottle every 2 days ALUM & MAG HYDROXIDE-SIMETH [id number] Melania K Angle MA ciprofloxacin 500 mg oral tablet (3 sources) Quinolone Antimicrobial Start: 07-30-2014 End: 08-04-2014 take 1 tablet by mouth twice daily CIPROFLOXACIN HCL 500 MG TABS One tablet by mouth twice daily CIPROFLOXACIN HCL [id number] Butch Hogue MD clindamycin 300 mg oral capsule (12 sources) Lincosamide Antibacterial Start: 01-09-2014 End: 01-19-2014 take 1 tablet by mouth three times daily CLINDAMYCIN HCL 300 MG CAPS One tablet by mouth three times daily CLINDAMYCIN HCL [id number] Butch Hogue MD Start: 09-15-2010 End: 04-01-2013 take 1 tablet by mouth three times daily CLINDAMYCIN HCL 300 MG CAPS One tablet by mouth three times daily CLINDAMYCIN HCL [id number] Butch Hogue MD codeine phosphate 2 mg/ml / guaiFENesin 20 mg/ml oral solution (12 sources) Opioid Agonist Start: 02-07-2013 End: 03-18-2013 take 5 mL by mouth every six hours as needed for cough CHERATUSSIN AC 100-10 MG/5ML SYRP 5ml by mouth every 6hr as needed cough, avoid driving or operating machine under the influence of medication. GUAIFENESIN-CODEINE [id number] Butch Hogue MD Start: 02-07-2013 take 5 mL by mouth e very six hours as needed for cough CHERATUSSIN AC 100-10 MG/5ML SYRP 5ml by mouth every 6hr as needed cough, avoid driving or operating machine under the influence of medication. JORDANAIFENESIN-CODEINE [id number] Butch Hogue MD Start: 02-07-2013 End: 03-18-2013 take 5 mL by mouth every six hours as needed for cough CHERATUSSIN AC 100-10 MG/5ML SYRP 5ml by mouth every 6hr as needed cough, avoid driving or operating machine under the influence of medication. GUAIFENESIN-CODEINE [id number] Butch Hogue MD Start: 07-04-2011 End: 09-18-2011 take 5 mL by mouth every six hours as needed for cough CHERATUSSIN AC 100-10 MG/5ML SYRP 5ml by mouth every 6hr as needed cough GUAIFENESIN-CODEINE [id number] Butch Hogue MD Start: 07-04-2011 take 5 mL by mouth e very six hours as needed for cough CHERATUSSIN AC 100-10 MG/5ML SYRP 5ml by mouth every 6hr as needed cough JORDANAIFENESIN-CODEINE [id number] Butch Hogue MD Start: 07-04-2011 End: 09-18-2011 take 5 mL by mouth every six hours as needed for cough CHERATUSSIN AC 100-10 MG/5ML SYRP 5ml by mouth every 6hr as needed cough GUAIFENESIN-CODEINE [id number] Butch Hogue MD doxycycline hyclate 100 mg oral tablet (9 sources) Tetracycline-class Drug Start: 02-07-2013 End: 03-18-2013 take 1 tablet by mouth twice daily DOXYCYCLINE HYCLATE 100 MG TABS One tablet by mouth twice daily DOXYCYCLINE HYCLATE [id number] Butch Hogue MD Start: 02-23-2010 End: 03-05-2010 take 1 tablet by mouth twice daily DOXYCYCLINE HYCLATE 100 MG CAPS One tablet by mouth twice daily DOXYCYCLINE HYCLATE [id number] Butch Hogue MD esomeprazole 40 mg delayed release oral capsule (9 sources) Proton Pump Inhibitor Start: 12-07-2009 End: 12-17-2012 take 1 tablet by mouth once daily NEXIUM 40 MG CPDR One tablet by mouth daily ESOMEPRAZOLE MAGNESIUM [id number] Butch Hogue MD Start: 12-07-2009 End: 12-17-2012 take 1 tablet by mouth once daily NEXIUM 40 MG CPDR One tablet by mouth daily ESOMEPRAZOLE MAGNESIUM [id number] Butch Hogue MD estrogens, conjugated (fci) 0.625 mg/ml vaginal cream (6 sources) Estrogen Start: 09-18-2011 End: 09-29-2013 PREMARIN 0.625 MG/GM CREA 2 gram apply vaginally three times a week x 2 wks, then once a week ESTROGENS, CONJUGATED [id number] Butch Hogue MD Start: 09-18-2011 End: 09-29-2013 PREMARIN 0.625 MG/GM CREA 2 gram apply vaginally three times a week x 2 wks, then once a week ESTROGENS, CONJUGATED [id number] Butch Hogue MD Start: 09-18-2011 PREMARIN 0.625 MG/GM CREA 2 gram apply vaginally three times a week x 2 wks, then once a week ESTROGENS, CONJUGATED [id number] Butch Hogue MD levoFLOXacin 500 mg oral tablet (6 sources) Quinolone Antimicrobial Start: 02-11-2013 End: 03-18-2013 take 1 tablet by mouth once daily LEVAQUIN 500 MG TABS One tablet by mouth daily LEVOFLOXACIN [id number] Butch Hogue MD LORazepam 0.5 mg oral tablet (6 sources) Benzodiazepine Start: 05-17-2012 End: 09-29-2013 take 1 tablet by mouth three times daily as needed LORAZEPAM 0.5 MG TABS One tablet by mouth three times daily as needed, avoid driving or operating machine under the influence of medication. LORAZEPAM [id number] Butch Hogue MD meloxicam 15 mg oral tablet (6 sources) Nonsteroidal Anti-inflammatory Drug Start: 07-19-2010 End: 12-17-2012 take 1 tablet by mouth once daily MOBIC 15 MG TABS One tablet by mouth daily MELOXICAM [id number] Butch Hogue MD mometasone furoate 0.05 mg/actuat metered dose nasal spray (6 sources) Corticosteroid Start: 03-18-2013 End: 09-29-2013 NASONEX 50 MCG/ACT SUSP 2 spray/nsotril daily MOMETASONE FUROATE [id number] Butch Hogue MD Start: 03-18-2013 End: 09-29-2013 NASONEX 50 MCG/ACT SUSP 2 sp ray/nsotril daily MOMETASONE FUROATE [id number] Butch Hogue MD Start: 03-18-2013 NASONEX 50 MCG /ACT SUSP 2 spray/nsotril daily MOMETASONE FUROATE [id number] Butch Hogue MD naproxen 500 mg oral tablet (3 sources) Nonsteroidal Anti-inflammatory Drug Start: 11-05-2015 End: 11-12-2015 take 1 tablet by mouth twice daily NAPROSYN 500 MG TABS One tablet by mouth twice daily NAPROXEN [id number] Adriano Patel DO nitrofurantoin, macrocrystals 25 mg / nitrofurantoin, monohydrate 75 mg oral capsule (6 sources) Nitrofuran Antibacterial Start: 04-17-2014 End: 04-24-2014 take 1 tablet by mouth twice daily NITROFURANTOIN MACROCRYSTAL 100 MG CAPS One tablet by mouth twice daily NITROFURANTOIN MACROCRYSTAL [id number] Butch Hogue MD Start: 01-06-2013 End: 01-13-2013 take 1 tablet by mouth twice daily NITROFURANTOIN MACROCRYSTAL 100 MG CAPS One tablet by mouth twice daily NITROFURANTOIN MACROCRYSTAL [id number] Butch Hogue MD OMEGA-3 FATTY ACIDS (2 sources) Start: 04-12-2015 FISH OIL CONCENTRATE 1000 MG CAPS 2-4 capsules per day OMEGA-3 FATTY ACIDS [id number] Adriano Patel DO OMEGA-3 FATTY ACIDS (1 source) Start: 04-12-2015 FISH OIL CONCENTRATE 1000 MG CAPS 2-4 capsules per day OMEGA-3 FATTY ACIDS [id number] Adriano Patel DO omeprazole 40 mg delayed release oral capsule (6 sources) Proton Pump Inhibitor Start: 03-29-2015 End: 06-07-2015 take 1 capsule by mouth once daily OMEPRAZOLE 40 MG CPDR 1 capsule by mouth daily OMEPRAZOLE [id number] Adriano Patel DO oseltamivir 75 mg oral capsule (5 sources) Neuraminidase Inhibitor Start: 09-13-2019 End: 09-18-2019 take 1 capsule by mouth twice daily Oseltamivir 75 mg capsule Discontinued 75 mg PO TWICE A DAY 10 5 0 September 13, 2019 1:00am September 17, 2019 1:00am September 18, 2019 1:08am polymyxin b [id number] unt/ml / trimethoprim 1 mg/ml ophthalmic solution (3 sources) Dihydrofolate Reductase Inhibitor Antibacterial, Polymyxin-class Antibacterial Start: 07-04-2011 End: 07-14-2011 POLYMYXIN B-TRIMETHOPRIM 53783-8.1 UNIT/ML-% SOLN 1 gtt each eye every 3hr while awake POLYMYXIN B-TRIMETHOPRIM [id number] Butch Hogue MD promethazine hydrochloride 25 mg oral tablet (12 sources) Phenothiazine Start: 07-04-2013 End: 09-29-2013 take 1 tablet by mouth every six hours as needed for nausea PROMETHAZINE HCL 25 MG TABS one tablet by mouth every 6hr as needed nausea/vomiting PROMETHAZINE HCL [id number] Butch Hogue MD Start: 07-04-2011 End: 09-18-2011 PROMETHAZINE HCL 12.5 MG TAB S one every 8hr as needed nausea PROMETHAZINE HCL [id number] Butch Hogue MD raNITIdine 150 mg oral tablet (6 sources) Histamine-2 Receptor Antagonist End: 12-20-2009 take 1 tablet by mouth twice daily ZANTAC 150 MG TABS One tablet by mouth twice a day RANITIDINE HCL [id number] Melania Connell [place] sulfamethoxazole 800 mg / trimethoprim 160 mg oral tablet (11 sources) Dihydrofolate Reductase Inhibitor Antibacterial, Sulfonamide Antimicrobial Start: 11-09-2021 End: 02-25-2025 Sulfamethoxazole- Trimethoprim (Bactrim Ds) 800-160 mg tablet Discontinued 1 {tbl} PO TWICE A DAY 6 0 November 09, 2021 12:00am February 25, 2025 10:05am Start: 01-09-2014 End: 01-09-2014 take 1 tablet by mouth twice daily SULFAMETHOXAZOLE-TRIMETHOPRIM 800-160 MG TABS One tablet by mouth twice daily SULFAMETHOXAZOLE-TRIMETHOPRIM [id number] Butch Hogue MD Problems Active Problems Problem Classification Problem Date Documented Date Episodic/Chronic Adjustment disorders (6 sources) Adjustment disorder; Translations: [Adjustment disorder, unspecified] Onset: 12-17-2012 Resolved: 03-30-2014 12-17-2012 Chronic Administrative/social admission (5 sources) Patient encounter status; Translations: [Encounter for pre-employment examination] 11-09-2021 Episodic Anxiety disorders (3 sources) Generalized anxiety disorder; Translations: [Generalized anxiety disorder] Onset: 12-20-2009 12-20-2009 Chronic Congestive heart failure; nonhypertensive (2 sources) Acute exacerbation of chronic congestive heart failure; Translations: [Heart failure, unspecified] 02-25-2025 Chronic Coronary atherosclerosis and other heart disease (1 source) Atherosclerotic heart disease of [place] coronary artery without angina pectoris; Translations: [Atherosclerotic heart disease of [place] coronary artery without angina pectoris] Onset: 02-20-2025 Chronic Disorders of lipid metabolism (3 sources) Hypertriglyceridemia; Translations: [Pure hyperglyceridemia] Onset: 03-29-2015 03-29-2015 Chronic Esophageal disorders (3 sources) Gastroesophageal reflux disease; Translations: [Gastro-esophageal reflux disease without esophagitis] Onset: 07-16-2002 12-07-2009 Chronic Essential hypertension (1 source) Essential (primary) hypertension; Translations: [Essential (primary) hypertension] Onset: 08-08-2024 Chronic Influenza (5 sources) Influenza; Translations: [Influenza due to unidentified [...] breast] Onset: 12-07-2009 12-07-2009 Urinary tract infections (11 sources) Acute urinary tract infection; Translations: [Urinary tract infectious disease] Onset: 01-06-2013 Resolved: 02-07-2013 02-07-2013 Episodic Viral infection (5 sources) Disease caused by 2019-nCoV; Translations: [COVID-19] [...] Test Name Value Interpretation Reference Range Facility Absolute lymphocyte countOrd ered By: Flip Silva on 02-25-2025 Lymphocytes Auto (Unsp spec) [#/Vol] 1.29 10*3/uL 0.83-4.51 [facility] Absolute neutrophil countOrd ered By: Flip Silva on 02-25-2025 Neutrophils (Bld) [#/Vol] 6.2 10*3/uL 2.0-7.7 [facility] Anion gap in Serum or Plasma Ordered By: Flip Silva on 02-25-2025 Anion gap [Moles/Vol] 13 mmol/L 5-15 [facility] Automated lymphocyte count a s percentage of total leukocytesOrdered By: Flip Silva on 02-25-2025 Lymphocytes/100 WBC Auto (Unsp spec) 14.9 % Low 19-41 [facility] BUN/creatinine ratioOrdered By: lFip Silva on 02-25-2025 Urea nitrogen/Creatinine [Mass ratio] 15.4 mg/mg 10-20 [facility] Basophil percentageOrdered B y: Flip Silva on 02-25-2025 Basophils/100 WBC (Bld) 0.5 % 0-1 [facility] Bilirubin Test strip Ql (U)O rdered By: Flip Silva on 02-25-2025 Bilirubin Ql (U) Negative Negative [facility] Bilirubin, totalOrdered By: Flip Silva on 02-25-2025 Bilirubin [Mass/Vol] 0.67 mg/dL 0.00-1.30 [facility] Carbon dioxide, total [Moles /volume] in Central venous bloodOrdered By: Flip Silva on 02-25-2025 CO2 [Moles/Vol] 20.7 mmol/L Low 21.0-32.0 [facility] Chloride assayOrdered By: Vincent Silva on 02-25-2025 Chloride [Moles/Vol] 78 mmol/L Low 98-108 [facility] Eosinophil percentageOrdered By: Flip Silva on 02-25-2025 Eosinophils/100 WBC (Bld) 0.0 % 0-5 [facility] Erythrocyte distribution wid th ratioOrdered By: Flip Silva on 02-25-2025 Erythrocyte distribution width (RBC) [Ratio] 13.6 % 11.6-14.6 [facility] Erythrocyte distribution wid th standard deviationOrdered By: Flip Garcia on 02-25-2025 Erythrocyte distribution width (RBC) [Ratio] 42.1 fl 35.1-43.9 [facility] Glomerular filtration rate ( GFR) estimation/1.73 sq m using serum, plasma, or whole bOrdered By: Flip Silva on 02-25-2025 GFR/1.73 sq M.predicted among non-blacks MDRD (S/P/Bld) [Vol rate/Area] 96 mL/min/{1.73_m2} >60 [facility] Comment on above: mL/min/1.73m2 CKD-EP I Creatinine Equation (2020) Hematocrit Auto (Bld) [Volum e fraction]Ordered By: Flip Silva on 02-25-2025 Hematocrit (Bld) [Volume fraction] 49.0 % High 37-47 [facility] Hemoglobin measurementOrdere d By: Flip Silva on 02-25-2025 Hemoglobin (Bld) [Mass/Vol] 16.2 g/dL High 12.0-15.0 [facility] Immature granulocytes/100 WB C Auto (Bld)Ordered By: Flip Silva on 02-25-2025 Immature granulocytes/100 WBC (Bld) 0.800 % 0.0-0.9 [facility] Comment on above: IG% - Immature Granu locytes (promyelocytes, myelocytes and metamyelocytes) > 1% indicates that a LEFT SHIFT is Present. Ketones Test strip Ql (U)Ord ered By: Flip Silva on 02-25-2025 Ketones Ql (U) 5 mg/dl High Negative [facility] Laboratory - Chemistry and C hemistry - challengeOrdered By: Flip Silva on 02-25-2025 AST [Catalytic activity/Vol] 31 U/L <32 [facility] MCV (mean corpuscular volume ) determinationOrdered By: Flip Silva on 02-25-2025 MCV (RBC) [Entitic vol] 83.8 fL 81-99 [facility] Mean corpuscular hemoglobin (MCH) determinationOrdered By: Flip Silva on 02-25-2025 MCH (RBC) [Entitic mass] 27.7 pg 27.0-32.0 [facility] Mean corpuscular hemoglobin concentration (MCHC) determinationOrdered By: Flip Silva on 02-25-2025 MCHC (RBC) [Mass/Vol] 33.1 g/dL 32-36 [facility] Mean platelet volume determi nationOrdered By: Flip Silva on 02-25-2025 Platelet mean volume (Bld) [Entitic vol] 9.1 fL 6.2-12.0 [facility] Microscopic analysis of urin e for red blood cells (RBC)Ordered By: Flip Silva on 02-25-2025 Microscopic analysis of urine for red blood cells (RBC) 0 SEEN /hpf 0-5 [facility] Monocyte percentageOrdered B y: Flip Silva on 02-25-2025 Monocytes/100 WBC (Bld) 12.6 % High 0-10 [facility] Mucus LM Ql (Urine sed)Order ed By: Flip Silva on 02-25-2025 Mucus Ql (Urine sed) 0 SEEN /hpf [facility] Natriuretic peptide.B prohor jacqui N-Terminal [Mass/volume] in Serum or PlasmaOrdered By: Flip Silva on 02-25-2025 Natriuretic peptide.B prohormone N-Terminal [Mass/Vol] 5756 pg/mL High <900 [facility] Comment on above: Heart Failure Unlike ly: < 300 pg/mLHeart Failure Likely< 50 Years: > 450 pg/mL50-75 Years: > 900 pg/mL>75 Years: > 1800 pg/mL Neutrophil percentageOrdered By: Flip Silva on 02-25-2025 Neutrophils/100 WBC (Bld) 71.2 % High 47-70 [facility] Nitrite Test strip Ql (U)Ord ered By: Flip Silva on 02-25-2025 Nitrite Ql (U) Negative Negative [facility] Nucleated red blood cell per centageOrdered By: Flip Silva on 02-25-2025 Nucleated RBC/100 WBC (Bld) [Ratio] 0.2 % 0-5 [facility] Platelet countOrdered By: Vincent Silva on 02-25-2025 Platelets (Bld) [#/Vol] 263 10*3/uL 150-450 [facility] Potassium measurement (mass/ volume)Ordered By: Flip Silva on 02-25-2025 Potassium (Unsp spec) [Mass/Vol] 5.5 mmol/L High 3.3-5.1 [facility] Comment on above: Hemolysis present, R esults could be affected. Protein Test strip Ql (U)Ord ered By: Flip Silva on 02-25-2025 Protein Ql (U) 100 mg/dl High Negative [facility] RBC Auto (Bld) [#/Vol]Ordere d By: Flip Silva on 02-25-2025 RBC (Bld) [#/Vol] 5.85 10*6/uL High 4.2-5.4 [facility] Serum creatinine measurement (mass/volume)Ordered By: Flip Silva on 02-25-2025 Creatinine [Mass/Vol] 0.70 mg/dL 0.70-1.20 [facility] Serum globulin measurementOr dered By: Flip Silva on 02-25-2025 Globulin (S) [Mass/Vol] 3.5 g/dL 2.2-4.2 [facility] Serum glucose measurement (m ass/volume)Ordered By: Flip Silva on 02-25-2025 Glucose [Mass/Vol] 112 mg/dL High 70-99 [facility] Serum or plasma alanine ruano otransferase (ALT) measurementOrdered By: Flip Silva on 02-25-2025 ALT [Catalytic activity/Vol] 26 U/L <35 [facility] Serum or plasma albumin tamy urement (mass/volume)Ordered By: Flip Garcia on 02-25-2025 Albumin [Mass/Vol] 3.8 g/dL 3.4-4.8 [facility] Serum or plasma albumin/glob ulin mass ratioOrdered By: Flip Silva on 02-25-2025 Albumin/Globulin [Mass ratio] 1.1 {ratio} 0.9-2.4 [facility] Serum or plasma alkaline carolyn sphatase measurementOrdered By: Flip Silva on 02-25-2025 ALP [Catalytic activity/Vol] 106 U/L High 35-104 [facility] Serum or plasma calcium tamy urement (mass/volume)Ordered By: Flip Garcia on 02-25-2025 Calcium [Mass/Vol] 9.2 mg/dL 7.6-11.0 [facility] Serum or plasma urea nitroge n measurement (mass/volume)Ordered By: Flip Silva on 02-25-2025 Urea nitrogen [Mass/Vol] 11 mg/dL 4-19 [facility] Sodium levelOrdered By: Alex Silva on 02-25-2025 Sodium [Moles/Vol] 112 mmol/L Low 133-145 [facility] Comment on above: Critical Result(s) C alled at: by: Results read back by same. Squamous epithelial cells de tection in urine sediment by light microscopyOrdered By: Flip Silva on 02-25-2025 Epithelial cells.squamous LM Ql (Urine sed) 5-10 SEEN /hpf 5-10 [facility] Total proteinOrdered By: Brandt Silva on 02-25-2025 Protein [Mass/Vol] 7.3 g/dL 5.9-8.4 [facility] Urine clarityOrdered By: Brandt Silva on 02-25-2025 Clarity (U) Sl. Cloudy Clear [facility] Urine color determinationOrd ered By: Flip Silva on 02-25-2025 Color (U) Yellow Yellow [facility] Urine glucose detectionOrder ed By: Flip Silva on 02-25-2025 Glucose Ql (U) Normal mg/dl Normal [facility] Urine leukocyte esterase det ection by dipstickOrdered By: Flip Silva on 02-25-2025 Leukocyte esterase Test strip Ql (U) 500 /ul High Negative [facility] Urine pHOrdered By: Flip Barrett on 02-25-2025 pH (U) 6.0 [pH] 5.0 - 8.0 [facility] Urine sediment bacteria coun t by microscopy (number/high power field)Ordered By: Flip Silva on 02-25-2025 Bacteria LM.HPF (Urine sed) [#/Area] 2 /[HPF] None Seen [facility] Urine specific gravity measu rementOrdered By: Flip Silva on 02-25-2025 Specific gravity (U) [Rel density] 1.015 1.002-1.030 [facility] Urine urobilinogen measureme ntOrdered By: Flip Silva on 02-25-2025 Urobilinogen Ql (U) 1 mg/dl High Normal [facility] White blood cell (WBC) count Ordered By: Flip Silva on 02-25-2025 WBC (Bld) [#/Vol] 8.7 10*3/uL 4.4-11.0 [facility] White blood cell countOrdere d By: Flip Silva on 02-25-2025 White blood cell count 5-10 SEEN /hpf 0-5 [facility] Anion gap in Serum or Plasma Ordered By: Adriano Patel on 02-19-2025 Anion gap [Moles/Vol] 15 mmol/L 5-15 [facility] BUN/creatinine ratioOrdered By: Adriano Patel on 02-19-2025 Urea nitrogen/Creatinine [Mass ratio] 14.3 mg/mg 10- [facility] Basic Metabolic Profile (BMP )on 02-19-2025 BUN/CRE 14.3 RATIO Normal - [facility] Comment on above: Performed By: #### L 500.2500, [id number] #### [facility] [address] [place], [address] Calcium [Mass/Vol] 9.2 mg/dL Normal 7.6-11.0 [facility] Comment on above: Performed By: #### L 500.2500, L503.7505 #### [facility] [address] [place], [address] Chloride [Moles/Vol] 83 mmol/L Low 98-108 [facility] Comment on above: Performed By: #### L 500.2500, L503.7505 #### [facility] [address] [place], [address] CO2 [Moles/Vol] 29.4 mmol/L Normal 21.0-32.0 [facility] Comment on above: Performed By: #### L 500.2500, L503.7505 #### [facility] [address] [place], [address] Creatinine [Mass/Vol] 0.82 mg/dL Normal 0.70-1.20 [facility] Comment on above: Performed By: #### L 500.2500, L503.7505 #### [facility] [address] [place], [address] GAP 15 Normal 5-15 [facility] Comment on above: Performed By: #### L 500.2500, L503.7505 #### [facility] [address] [place], [address] GFR/1.73 sq M.predicted among non-blacks MDRD (S/P/Bld) [Vol rate/Area] 80 mL/min/{1.73_m2} Normal >60 [facility] Comment on above: Result Comment: mL/m in/1.73m2 CKD-EPI Creatinine Equation (2020) Performed By: #### L 500.2500, L503.7505 #### [facility] [address] [place], [address] Glucose [Mass/Vol] 120 mg/dL High 70-99 [facility] Comment on above: Performed By: #### L 500.2500, [id number] #### [facility] [address] [place], [address] Potassium [Moles/Vol] 4.5 mmol/L Normal 3.3-5.1 [facility] Comment on above: Performed By: #### L 500.2500, [id number] #### [facility] [address] [place], [address] Sodium [Moles/Vol] 127 mmol/L Low 133-145 [facility] Comment on above: Performed By: #### L 500.2500, L503.7505 #### [facility] [address] [place], [address] Urea nitrogen [Mass/Vol] 12 mg/dL Normal 4-19 [facility] Comment on above: Performed By: #### L 500.2500, L503.7505 #### [facility] [address] [place], [address] Carbon dioxide, total [Moles /volume] in Central venous bloodOrdered By: Adriano Patel on 02-19-2025 CO2 [Moles/Vol] 29.4 mmol/L 21.0-32.0 [facility] Chloride assayOrdered By: Liliana Patel on 02-19-2025 Chloride [Moles/Vol] 83 mmol/L Low 98-108 [facility] Glomerular filtration rate ( GFR) estimation/1.73 sq m using serum, plasma, or whole bOrdered By: Adriano Patel on 02-19-2025 GFR/1.73 sq M.predicted among non-blacks MDRD (S/P/Bld) [Vol rate/Area] 80 mL/min/{1.73_m2} >60 [facility] Comment on above: mL/min/1.73m2 CKD-EP I Creatinine Equation (2021) Natriuretic peptide.B prohor jacqui N-Terminal [Mass/volume] in Serum or PlasmaOrdered By: Adriano Patel on 02-19-2025 Natriuretic peptide.B prohormone N-Terminal [Mass/Vol] 4948 pg/mL High <900 [facility] Comment on above: Heart Failure Unlike ly: < 300 pg/mLHeart Failure Likely< 50 Years: > 450 pg/mL50-75 Years: > 900 pg/mL>75 Years: > 1800 pg/mL Potassium measurement (mass/ volume)Ordered By: Adriano Patel on 02-19-2025 Potassium (Unsp spec) [Mass/Vol] 4.5 mmol/L 3.3-5.1 [facility] Pro- Brain NATRIURETIC PEPTI Alod 02-19-2025 Natriuretic peptide B (Bld) [Mass/Vol] 4948 pg/mL High <=900 [facility] Comment on above: Result Comment: Hear t Failure Unlikely: < 300 pg/mL Heart Failure Likely < 50 Years: > 450 pg/mL 50-75 Years: > 900 pg/mL >75 Years: > 1800 pg/mL Performed By: #### L 500.2500, L503.7505 #### [facility] [address] [place], [place], [id number] Serum creatinine measurement (mass/volume)Ordered By: Adriano Patel on 02-19-2025 Creatinine [Mass/Vol] 0.82 mg/dL 0.70-1.20 [facility] Serum glucose measurement (m ass/volume)Ordered By: Adriano Patel on 02-19-2025 Glucose [Mass/Vol] 120 mg/dL High 70-99 [facility] Serum or plasma calcium tamy urement (mass/volume)Ordered By: Adriano Patel on 02-19-2025 Calcium [Mass/Vol] 9.2 mg/dL 7.6-11.0 [facility] Serum or plasma urea nitroge n measurement (mass/volume)Ordered By: Adriano Patel on 02-19-2025 Urea nitrogen [Mass/Vol] 12 mg/dL 4-19 [facility] Sodium levelOrdered By: Adriano Patel on 02-19-2025 Sodium [Moles/Vol] 127 mmol/L Low 133-145 [facility] Absolute lymphocyte countOrd ered By: Adriano BrownJorge on 02-12-2025 Lymphocytes Auto (Unsp spec) [#/Vol] 1.94 10*3/uL 0.83-4.51 [facility] Absolute neutrophil countOrd ered By: Adriano BrownJorge on 02-12-2025 Neutrophils (Bld) [#/Vol] 5.6 10*3/uL 2.0-7.7 [facility] Anion gap in Serum or Plasma Ordered By: Adriano Patel on 02-12-2025 Anion gap [Moles/Vol] 11 mmol/L 5- [facility] Automated lymphocyte count a s percentage of total leukocytesOrdered By: Adriano BrownJorge on 02-12-2025 Lymphocytes/100 WBC Auto (Unsp spec) 22.7 % - [facility] BUN/creatinine ratioOrdered By: Adriano Patel on 02-12-2025 Urea nitrogen/Creatinine [Mass ratio] 13.0 mg/mg 10- [facility] Basophil percentageOrdered B y: Adriano Patel on 02-12-2025 Basophils/100 WBC (Bld) 0.6 % 0-1 [facility] Bilirubin, totalOrdered By: Adriano Jorge on 02-12-2025 Bilirubin [Mass/Vol] 0.57 mg/dL 0.00-1.30 [facility] CBC W/Diff, Automatedon 01-15 Absolute Lymph 1.94 X10 3/uL Normal 0.83-4.51 [facility] Comment on above: Performed By: #### L 100.0100, L506.0400, L500.4050, L501.9520, L503.7505 #### [facility] [address] [place], [place], [id number] Absolute Neut 5.6 X10 3/uL Normal 2.0-7.7 [facility] Comment on above: Performed By: #### L 100.0100, L506.0400, L500.4050, L501.9520, L503.7505 #### [facility] [address] [place], [address] Basophils/100 WBC (Bld) 0.6 % Normal 0-1 [facility] Comment on above: Performed By: #### L 100.0100, L506.0400, L500.4050, L501.9520, L503.7505 #### [facility] [address] [place], [address] Eosinophils/100 WBC (Bld) 0.1 % Normal 0-5 [facility] Comment on above: Performed By: #### L 100.0100, L506.0400, L500.4050, L501.9520, L503.7505 #### [facility] [address] [place], [address] Erythrocyte distribution width (RBC) [Ratio] 14.6 % Normal 11.6-14.6 [facility] Comment on above: Performed By: #### L 100.0100, L506.0400, L500.4050, L501.9520, L503.7505 #### [facility] [address] [place], [address] Hematocrit (Bld) [Volume fraction] 44.4 % Normal 37-47 [facility] Comment on above: Performed By: #### L 100.0100, L506.0400, L500.4050, L501.9520, L503.7505 #### [facility] [address] [place], [address] Hemoglobin (Bld) [Mass/Vol] 14.1 g/dL Normal 12.0-15.0 [facility] Comment on above: Performed By: #### L 100.0100, L506.0400, L500.4050, L501.9520, L503.7505 #### [facility] [address] [place], [address] IG% 0.400 Normal 0.0-0.9 [facility] Comment on above: Result Comment: IG% - Immature Granulocytes (promyelocytes, myelocytes and metamyelocytes) > 1% indicates that a LEFT SHIFT is Present. Performed By: #### L 100.0100, L506.0400, L500.4050, L501.9520, L503.7505 #### [facility] [address] [place], [address] Lymphocytes/100 WBC (Bld) 22.7 % Normal 19-41 [facility] Comment on above: Performed By: #### L 100.0100, L506.0400, L500.4050, L501.9520, L503.7505 #### [facility] [address] [place], [address] MCH (RBC) [Entitic mass] 28.3 pg Normal 27.0-32.0 [facility] Comment on above: Performed By: #### L 100.0100, L506.0400, L500.4050, L501.9520, L503.7505 #### [facility] [address] [place], [address] MCHC (RBC) [Mass/Vol] 31.8 g/dL Low 32-36 [facility] Comment on above: Performed By: #### L 100.0100, L506.0400, L500.4050, L501.9520, L503.7505 #### [facility] [address] [place], [address] MCV (RBC) [Entitic vol] 89.2 fL Normal 81-99 [facility] Comment on above: Performed By: #### L 100.0100, L506.0400, L500.4050, L501.9520, L503.7505 #### [facility] [address] [place], [address] Monocytes/100 WBC (Bld) 10.3 % High 0-10 [facility] Comment on above: Performed By: #### L 100.0100, L506.0400, L500.4050, L501.9520, L503.7505 #### [facility] [address] [place], [address] Neutrophils/100 WBC (Bld) 65.9 % Normal 47-70 [facility] Comment on above: Performed By: #### L 100.0100, L506.0400, L500.4050, L501.9520, L503.7505 #### [facility] [address] [place], [address] Nucleated RBC (Bld) [#/Vol] 0 10*3/uL Normal 0-5 [facility] Comment on above: Performed By: #### L 100.0100, L506.0400, L500.4050, L501.9520, L503.7505 #### [facility] [address] [place], [address] Platelet mean volume (Bld) [Entitic vol] 10.5 fL Normal 6.2-12.0 [facility] Comment on above: Performed By: #### L 100.0100, L506.0400, L500.4050, L501.9520, L503.7505 #### [facility] [address] [place], [address] Platelets (Bld) [#/Vol] 234 10*3/uL Normal 150-450 [facility] Comment on above: Performed By: #### L 100.0100, L506.0400, L500.4050, L501.9520, L503.7505 #### [facility] [address] [place], [address] RBC (Bld) [#/Vol] 4.98 10*6/uL Normal 4.2-5.4 [facility] Comment on above: Performed By: #### L 100.0100, L506.0400, L500.4050, L501.9520, L503.7505 #### [facility] [address] [place], [address] RDW SD 47.7 fl High 35.1-43.9 [facility] Comment on above: Performed By: #### L 100.0100, L506.0400, L500.4050, L501.9520, L503.7505 #### [facility] [address] [place], [address] WBC (Bld) [#/Vol] 8.6 10*3/uL Normal 4.4-11.0 [facility] Comment on above: Performed By: #### L 100.0100, L506.0400, L500.4050, L501.9520, L503.7505 #### [facility] [address] [place], [address] Carbon dioxide, total [Moles /volume] in Central venous bloodOrdered By: Adriano Patel on 02-12-2025 CO2 [Moles/Vol] 27.2 mmol/L 21.0-32.0 [facility] Chloride assayOrdered By: Liliana Patel on 02-12-2025 Chloride [Moles/Vol] 92 mmol/L Low 98-108 [facility] Comprehensive Metabolic Prof ilon 02-12-2025 Albumin [Mass/Vol] 3.9 g/dL Normal 3.4-4.8 [facility] Comment on above: Performed By: #### L 100.0100, L506.0400, L500.4050, L501.9520, L503.7505 #### [facility] [address] [place], [address] Albumin/Globulin [Mass ratio] 1.2 {ratio} Normal 0.9-2.4 [facility] Comment on above: Performed By: #### L 100.0100, L506.0400, L500.4050, L501.9520, L503.7505 #### [facility] [address] [place], [address] ALK PHOS 101 U/L Normal 35-104 [facility] Comment on above: Performed By: #### L 100.0100, L506.0400, L500.4050, L501.9520, L503.7505 #### [facility] [address] [place], [address] ALT [Catalytic activity/Vol] 38 U/L High <=34 [facility] Comment on above: Performed By: #### L 100.0100, L506.0400, L500.4050, L501.9520, L503.7505 #### [facility] [address] [place], [address] AST [Catalytic activity/Vol] 34 U/L High <=31 [facility] Comment on above: Performed By: #### L 100.0100, L506.0400, L500.4050, L501.9520, L503.7505 #### [facility] [address] [place], [address] Bilirubin [Mass/Vol] 0.57 mg/dL Normal 0.00-1.30 [facility] Comment on above: Performed By: #### L 100.0100, L506.0400, L500.4050, L501.9520, L503.7505 #### [facility] [address] [place], [address] BUN/CRE 13.0 RATIO Normal 10-20 [facility] Comment on above: Performed By: #### L 100.0100, L506.0400, L500.4050, L501.9520, L503.7505 #### [facility] [address] [place], [address] Calcium [Mass/Vol] 9.1 mg/dL Normal 7.6-11.0 [facility] Comment on above: Performed By: #### L 100.0100, L506.0400, L500.4050, L501.9520, L503.7505 #### [facility] [address] [place], [address] Chloride [Moles/Vol] 92 mmol/L Low 98-108 [facility] Comment on above: Performed By: #### L 100.0100, L506.0400, L500.4050, L501.9520, L503.7505 #### [facility] [address] [place], [address] CO2 [Moles/Vol] 27.2 mmol/L Normal 21.0-32.0 [facility] Comment on above: Performed By: #### L 100.0100, L506.0400, L500.4050, L501.9520, L503.7505 #### [facility] [address] [place], [address] Creatinine [Mass/Vol] 0.76 mg/dL Normal 0.70-1.20 [facility] Comment on above: Performed By: #### L 100.0100, L506.0400, L500.4050, L501.9520, L503.7505 #### [facility] [address] [place], [address] GAP 11 Normal 5-15 [facility] Comment on above: Performed By: #### L 100.0100, L506.0400, L500.4050, L501.9520, L503.7505 #### [facility] [address] [place], [address] GFR/1.73 sq M.predicted among non-blacks MDRD (S/P/Bld) [Vol rate/Area] 87 mL/min/{1.73_m2} Normal >60 [facility] Comment on above: Result Comment: mL/m in/1.73m2 CKD-EPI Creatinine Equation (2020) Performed By: #### L 100.0100, L506.0400, L500.4050, L501.9520, L503.7505 #### [facility] [address] [place], [address] Globulin (S) [Mass/Vol] 3.2 g/dL Normal 2.2-4.2 [facility] Comment on above: Performed By: #### L 100.0100, L506.0400, L500.4050, L501.9520, L503.7505 #### [facility] [address] [place], [address] Glucose [Mass/Vol] 105 mg/dL High 70-99 [facility] Comment on above: Performed By: #### L 100.0100, L506.0400, L500.4050, L501.9520, L503.7505 #### [facility] [address] [place], [address] Potassium [Moles/Vol] 4.1 mmol/L Normal 3.3-5.1 [facility] Comment on above: Performed By: #### L 100.0100, L506.0400, L500.4050, L501.9520, L503.7505 #### [facility] [address] [place], [address] Sodium [Moles/Vol] 130 mmol/L Low 133-145 [facility] Comment on above: Performed By: #### L 100.0100, L506.0400, L500.4050, L501.9520, L503.7505 #### [facility] [address] [place], [address] T PROT 7.1 g/dL Normal 5.9-8.4 [facility] Comment on above: Performed By: #### L 100.0100, L506.0400, L500.4050, L501.9520, L503.7505 #### [facility] [address] [place], [place], [address] Urea nitrogen [Mass/Vol] 10 mg/dL Normal 4-19 [facility] Comment on above: Performed By: #### L 100.0100, L506.0400, L500.4050, L501.9520, L503.7505 #### [facility] [address] [place], [address] Eosinophil percentageOrdered By: Adriano Patel on 02-12-2025 Eosinophils/100 WBC (Bld) 0.1 % 0-5 [facility] Erythrocyte distribution wid th ratioOrdered By: Adriano Patel on 02-12-2025 Erythrocyte distribution width (RBC) [Ratio] 14.6 % 11.6-14.6 [facility] Erythrocyte distribution wid th standard deviationOrdered By: Adriano Patel on 02-12-2025 Erythrocyte distribution width (RBC) [Ratio] 47.7 fl High 35.1-43.9 [facility] Glomerular filtration rate ( GFR) estimation/1.73 sq m using serum, plasma, or whole bOrdered By: Adriano Patel on 02-12-2025 GFR/1.73 sq M.predicted among non-blacks MDRD (S/P/Bld) [Vol rate/Area] 87 mL/min/{1.73_m2} >60 [facility] Comment on above: mL/min/1.73m2 CKD-EP I Creatinine Equation (2020) Hematocrit Auto (Bld) [Volum e fraction]Ordered By: Adriano Patel on 02-12-2025 Hematocrit (Bld) [Volume fraction] 44.4 % 37-47 [facility] Hemoglobin measurementOrdere d By: Adriano Patel on 02-12-2025 Hemoglobin (Bld) [Mass/Vol] 14.1 g/dL 12.0-15.0 [facility] Immature granulocytes/100 WB C Auto (Bld)Ordered By: Adriano Patel on 02-12-2025 Immature granulocytes/100 WBC (Bld) 0.400 % 0.0-0.9 [facility] Comment on above: IG% - Immature Granu locytes (promyelocytes, myelocytes and metamyelocytes) > 1% indicates that a LEFT SHIFT is Present. Laboratory - Chemistry and C hemistry - challengeOrdered By: Adriano Patel on 02-12-2025 AST [Catalytic activity/Vol] 34 U/L High <32 [facility] MCV (mean corpuscular volume ) determinationOrdered By: Adriano Patel on 02-12-2025 MCV (RBC) [Entitic vol] 89.2 fL 81-99 [facility] Mean corpuscular hemoglobin (MCH) determinationOrdered By: Adriano Patel on 02-12-2025 MCH (RBC) [Entitic mass] 28.3 pg 27.0-32.0 [facility] Mean corpuscular hemoglobin concentration (MCHC) determinationOrdered By: Adriano Patel on 02-12-2025 MCHC (RBC) [Mass/Vol] 31.8 g/dL Low 32-36 [facility] Mean platelet volume determi nationOrdered By: Adriano Patel on 02-12-2025 Platelet mean volume (Bld) [Entitic vol] 10.5 fL 6.2-12.0 [facility] Monocyte percentageOrdered B y: Adriano Patel on 02-12-2025 Monocytes/100 WBC (Bld) 10.3 % High 0-10 [facility] Natriuretic peptide.B prohor jacqui N-Terminal [Mass/volume] in Serum or PlasmaOrdered By: Adriano Patel on 02-12-2025 Natriuretic peptide.B prohormone N-Terminal [Mass/Vol] 4180 pg/mL High <900 [facility] Comment on above: Heart Failure Unlike ly: < 300 pg/mLHeart Failure Likely< 50 Years: > 450 pg/mL50-75 Years: > 900 pg/mL>75 Years: > 1800 pg/mL Neutrophil percentageOrdered By: Adriano Patel on 02-12-2025 Neutrophils/100 WBC (Bld) 65.9 % 47-70 [facility] Nucleated red blood cell per centageOrdered By: Adriano Patel on 02-12-2025 Nucleated RBC/100 WBC (Bld) [Ratio] 0 % 0-5 [facility] Platelet countOrdered By: Liliana Patel on 02-12-2025 Platelets (Bld) [#/Vol] 234 10*3/uL 150-450 [facility] Potassium measurement (mass/ volume)Ordered By: Adriano Patel on 02-12-2025 Potassium (Unsp spec) [Mass/Vol] 4.1 mmol/L 3.3-5.1 [facility] Pro- Brain NATRIURETIC PEPTI Aldo 02-12-2025 Natriuretic peptide B (Bld) [Mass/Vol] 4180 pg/mL High <=900 [facility] Comment on above: Result Comment: Hear t Failure Unlikely: < 300 pg/mL Heart Failure Likely < 50 Years: > 450 pg/mL 50-75 Years: > 900 pg/mL >75 Years: > 1800 pg/mL Performed By: #### L 500.2500, L503.7505 #### [facility] [address] [place] [address], [id number] RBC Auto (Bld) [#/Vol]Ordere d By: Adriano Patel on 02-12-2025 RBC (Bld) [#/Vol] 4.98 10*6/uL 4.2-5.4 [facility] Serum creatinine measurement (mass/volume)Ordered By: Adriano Patel on 02-12-2025 Creatinine [Mass/Vol] 0.76 mg/dL 0.70-1.20 [facility] Serum globulin measurementOr dered By: Adriano Patel on 02-12-2025 Globulin (S) [Mass/Vol] 3.2 g/dL 2.2-4.2 [facility] Serum glucose measurement (m ass/volume)Ordered By: Adriano Patel on 02-12-2025 Glucose [Mass/Vol] 105 mg/dL High 70-99 [facility] Serum or plasma alanine ruano otransferase (ALT) measurementOrdered By: Adriano Patel on 02-12-2025 ALT [Catalytic activity/Vol] 38 U/L High <35 [facility] Serum or plasma albumin tamy urement (mass/volume)Ordered By: Adriano Patel on 02-12-2025 Albumin [Mass/Vol] 3.9 g/dL 3.4-4.8 [facility] Serum or plasma albumin/glob ulin mass ratioOrdered By: Adriano Patel on 02-12-2025 Albumin/Globulin [Mass ratio] 1.2 {ratio} 0.9-2.4 [facility] Serum or plasma alkaline carolyn sphatase measurementOrdered By: Adriano Patel on 02-12-2025 ALP [Catalytic activity/Vol] 101 U/L 35-104 [facility] Serum or plasma calcium tamy urement (mass/volume)Ordered By: Adriano Patel on 02-12-2025 Calcium [Mass/Vol] 9.1 mg/dL 7.6-11.0 [facility] Serum or plasma urea nitroge n measurement (mass/volume)Ordered By: Adriano Patel on 02-12-2025 Urea nitrogen [Mass/Vol] 10 mg/dL 4-19 [facility] Sodium levelOrdered By: Adriano Patel on 02-12-2025 Sodium [Moles/Vol] 130 mmol/L Low 133-145 [facility] T4 Free Directon 02-12-2025 T4 FREE DIRECT 1.80 ng/dL High 0.76-1.46 [facility] Comment on above: Performed By: #### L 500.2500, L503.7505 #### [facility] [address] [place], [place], [id number] T4 freeOrdered By: Adriano chris on 02-12-2025 Free T4 [Mass/Vol] 1.80 ng/dL High 0.76-1.46 [facility] TSH DL <= 0.005 mIU/L QnOrde red By: Adriano Patel on 02-12-2025 TSH Qn 0.623 uIU/mL 0.300-4.200 [facility] Thyroid Stim Hormone (TSH)on 02-12-2025 TSH 0.623 uIU/mL Normal 0.300-4.200 [facility] Comment on above: Performed By: #### L 100.0100, L506.0400, L500.4050, L501.9520, L503.7505 #### [facility] [address] [place], [address] Total proteinOrdered By: Mariajose montiel Jorge on 02-12-2025 Protein [Mass/Vol] 7.1 g/dL 5.9-8.4 [facility] White blood cell (WBC) count Ordered By: Adriano Patel on 02-12-2025 WBC (Bld) [#/Vol] 8.6 10*3/uL 4.4-11.0 [facility] Comprehensive Metabolic Prof ilon 07-14-2024 Albumin [Mass/Vol] 3.7 g/dL Normal 3.2-5.0 [facility] Comment on above: Performed By: #### L 501.9520, L500.4050, L506.0400, L500.4100 #### [facility] [address] [place], [address] Albumin/Globulin [Mass ratio] 0.8 {ratio} Low 0.9-2.4 [facility] Comment on above: Performed By: #### L 501.9520, L500.4050, L506.0400, L500.4100 #### [facility] [address] [place], [address] ALK P 95 U/L Normal 45-117 [facility] Comment on above: Performed By: #### L 501.9520, L500.4050, L506.0400, L500.4100 #### [facility] [address] [place], [address] ALT [Catalytic activity/Vol] 22 U/L Normal 13-56 [facility] Comment on above: Performed By: #### L 501.9520, L500.4050, L506.0400, L500.4100 #### [facility] [address] [place], [address] AST [Catalytic activity/Vol] 16 U/L Normal 15-37 [facility] Comment on above: Performed By: #### L 501.9520, L500.4050, L506.0400, L500.4100 #### [facility] [address] [place], [address] Bilirubin [Mass/Vol] 0.40 mg/dL Normal 0.20-1.00 [facility] Comment on above: Result Comment: For patients on eltrombopag therapy, use of Dimension [place] TBIL is not recommended. Performed By: #### L 501.9520, L500.4050, L506.0400, L500.4100 #### [facility] [address] [place], [address] BUN/CRE 12.2 RATIO Normal 10-20 [facility] Comment on above: Performed By: #### L 501.9520, L500.4050, L506.0400, L500.4100 #### [facility] [address] [place], [address] CA,Total 9.4 mg/dL Normal 8.5-10.1 [facility] Comment on above: Performed By: #### L 501.9520, L500.4050, L506.0400, L500.4100 #### [facility] [address] [place], [address] Chloride [Moles/Vol] 95 mmol/L Low 98-107 [facility] Comment on above: Performed By: #### L 501.9520, L500.4050, L506.0400, L500.4100 #### [facility] [address] [place], [address] CO2 [Moles/Vol] 27.0 mmol/L Normal 21.0-32.0 [facility] Comment on above: Performed By: #### L 501.9520, L500.4050, L506.0400, L500.4100 #### [facility] [address] [place], [address] Creatinine [Mass/Vol] 0.90 mg/dL Normal 0.55-1.02 [facility] Comment on above: Result Comment: The validity of the calculated GFR GFRAA in patients over 70 years has not been determined. Clinical correlation is essential. Performed By: #### L 501.9520, L500.4050, L506.0400, L500.4100 #### [facility] [address] [place], [address] EST GFR - AA 81 mL/min Normal >60 [facility] Comment on above: Result Comment: Afri can [place] GFR Calc Performed By: #### L 501.9520, L500.4050, L506.0400, L500.4100 #### [facility] [address] [place], [address] GAP 9 Normal 5-15 [facility] Comment on above: Performed By: #### L 501.9520, L500.4050, L506.0400, L500.4100 #### [facility] [address] [place], [address] GFR/1.73 sq M.predicted among non-blacks MDRD (S/P/Bld) [Vol rate/Area] 67 mL/min/{1.73_m2} Normal >60 [facility] Comment on above: Result Comment: Non- GFR Calc Performed By: #### L 501.9520, L500.4050, L506.0400, L500.4100 #### [facility] [address] [place], [address] Globulin (S) [Mass/Vol] 4.6 g/dL High 2.2-4.2 [facility] Comment on above: Performed By: #### L 501.9520, L500.4050, L506.0400, L500.4100 #### [facility] [address] [place], [address] Glucose [Mass/Vol] 110 mg/dL High 74-106 [facility] Comment on above: Result Comment: Fast ing Glucose result from 100 to 125 mg/dL suggests IMPAIRED HOMEOSTASIS per A.D.A. criteria. Performed By: #### L 501.9520, L500.4050, L506.0400, L500.4100 #### [facility] [address] [place], [address] Potassium [Moles/Vol] 4.1 mmol/L Normal 3.5-5.1 [facility] Comment on above: Performed By: #### L 501.9520, L500.4050, L506.0400, L500.4100 #### [facility] [address] [place], [address] Sodium [Moles/Vol] 131 mmol/L Low 136-145 [facility] Comment on above: Performed By: #### L 501.9520, L500.4050, L506.0400, L500.4100 #### [facility] [address] [place], [address] T PROT 8.3 g/dL High 6.4-8.2 [facility] Comment on above: Performed By: #### L 501.9520, L500.4050, L506.0400, L500.4100 #### [facility] [address] [place], [address] Urea nitrogen [Mass/Vol] 11 mg/dL Normal 7-18 [facility] Comment on above: Performed By: #### L 501.9520, L500.4050, L506.0400, L500.4100 #### [facility] [address] [place], [address] Lipid Profileon 07-14-2024 Cholesterol [Mass/Vol] 234 mg/dL High 200 [facility] Comment on above: Result Comment: <200 mg/dL Desirable 200-240 mg/dL Borderline >240 mg/dL High Risk Performed By: #### L 501.9520, L500.4050, L506.0400, L500.4100 #### [facility] [address] [place], [address] Cholesterol in HDL [Mass/Vol] 50 mg/dL Normal [facility] Comment on above: Result Comment: The drugs N-Acetylcysteine and Metamizole may falsely depress this assay. Reference Range HDL <40 mg/dL Low HDL Cholesterol HDL >or= 60 mg/dL High HDL Cholesterol Performed By: #### L 501.9520, L500.4050, L506.0400, L500.4100 #### [facility] [address] [place], [address] Cholesterol in LDL [Mass/Vol] 134 mg/dL High 0-130 [facility] Comment on above: Performed By: #### L 501.9520, L500.4050, L506.0400, L500.4100 #### [facility] [address] [place], [address] Cholesterol in VLDL [Mass/Vol] 50 mg/dL High 5-40 [facility] Comment on above: Performed By: #### L 501.9520, L500.4050, L506.0400, L500.4100 #### [facility] [address] [place], [address] Triglyceride [Mass/Vol] 252 mg/dL High [facility] Comment on above: Result Comment: The drugs N-Acetylcysteine and Metamizole may falsely depress this assay. Serum Triglycerides Reference Interval Normal <150 mg/dL Borderline high 150 - 199 mg/dL High 200 - 499 mg/dL Very High > or = 500 mg/dL Performed By: #### L 501.9520, L500.4050, L506.0400, L500.4100 #### [facility] [address] [place], [address] T4 Free Directon 07-14-2024 T4 FREE DIRECT 1.59 ng/dL High 0.76-1.46 [facility] Comment on above: Performed By: #### L 501.9520, L500.4050, L506.0400, L500.4100 #### [facility] [address] [place], [address] Thyroid Stim Hormone (TSH)on 07-14-2024 TSH 0.526 uIU/mL Normal 0.358-3.740 [facility] Comment on above: Performed By: #### L 501.9520, L500.4050, L506.0400, L500.4100 #### [facility] [address] [place], [address] PAP IG w/Reflex HPV GDLNon 0 03-02-2024 ADEQ Comment Normal . [facility] Comment on above: Order Comment: Speci men Comment: [id number] Specimen Comment: Source.............Cervix;Endocervix Specimen Comment: Other..............Post Menopausal;Other Specimen Comment: No. of containers..01 ThinPrep Vial Result Comment: Sati sfactory for evaluation. Endocervical and/or squamous metaplastic cells (endocervical component) are present. Performed By: #### L 7400.0290 #### [facility] [address] [place], [address] Age Gdln ACOG T 30-65 Normal . [facility] Comment on above: Order Comment: Speci men Comment: [id number] Specimen Comment: Source.............Cervix;Endocervix Specimen Comment: Other..............Post Menopausal;Other Specimen Comment: No. of containers..01 ThinPrep Vial Performed By: #### L 7400.0290 #### [facility] [address] [place], [place], [address] COMM . Normal . [facility] Comment on above: Order Comment: Speci men Comment: [id number] Specimen Comment: Source.............Cervix;Endocervix Specimen Comment: Other..............Post Menopausal;Other Specimen Comment: No. of containers..01 ThinPrep Vial Performed By: #### L 7400.0290 #### [facility] [address] [place], [place], [address] COMMENT Comment Normal . [facility] Comment on above: Order Comment: Speci men Comment: [id number] Specimen Comment: Source.............Cervix;Endocervix Specimen Comment: Other..............Post Menopausal;Other Specimen Comment: No. of containers..01 ThinPrep Vial Result Comment: This liquid based ThinPrep(R) pap test was screened with the use of an image guided system. Performed By: #### L 7400.0290 #### [facility] [address] [place], [place], [id number] DIAG Comment Normal . [facility] Comment on above: Order Comment: Speci men Comment: [id number] Specimen Comment: Source.............Cervix;Endocervix Specimen Comment: Other..............Post Menopausal;Other Specimen Comment: No. of containers..01 ThinPrep Vial Result Comment: NEGA TIVE FOR INTRAEPITHELIAL LESION OR MALIGNANCY. CELLULAR CHANGES ASSOCIATED WITH ATROPHY ARE PRESENT. Performed By: #### L 7400.0290 #### [facility] [address] [place], [address] HPV APTIMA, HR Negative Normal Negative [facility] Comment on above: Order Comment: Speci men Comment: [id number] Specimen Comment: Source.............Cervix;Endocervix Specimen Comment: Other..............Post Menopausal;Other Specimen Comment: No. of containers..01 ThinPrep Vial Result Comment: This nucleic acid amplification test detects fourteen high- risk HPV types (16,18,31,33,35,39,45,51,52,56,58,59,66,68) without differentiation. Performed By: #### L 7400.0290 #### [facility] [address] [place], [address] HPV Temi Rfx Comment Normal . [facility] Comment on above: Order Comment: Speci men Comment: [id number] Specimen Comment: Source.............Cervix;Endocervix Specimen Comment: Other..............Post Menopausal;Other Specimen Comment: No. of containers..01 ThinPrep Vial Result Comment: Crit eria not met, HPV Genotype not performed. Performed at: =[address] [id number] Procedures Rn: Katelyn Hendricks MD, Phone: [phone] Performed at: [address] [id number] Procedures Rn: Katelyn Hendricks MD, Phone: [phone] Performed By: #### L 7400.0290 #### [facility] [address] [place], [place], [address] PAPSMR Comment Normal . [facility] Comment on above: Order Comment: Speci men Comment: [id number] Specimen Comment: Source.............Cervix;Endocervix Specimen Comment: Other..............Post Menopausal;Other [...] occur. Performed By: #### L 7400.0290 #### [facility] [address] [place], [place], [address] PERFORM Comment Normal . [facility] Comment on above: Order Comment: Speci men Comment: [id number] Specimen Comment: Source.............Cervix;Endocervix Specimen Comment: Other..............Post Menopausal;Other Specimen Comment: No. of containers..01 ThinPrep Vial Result Comment: Marianna Redman, Veterans Service Representative (ASCP) Performed By: #### L 7400.0290 #### [facility] [address] [place], [place], [address] Absolute lymphocyte countOrd ered By: Dr. Patel on 12-14-2022 Lymphocytes Auto (Unsp spec) [#/Vol] 2.85 10*3/uL 0.83-4.51 [facility] Basophil percentageOrdered B y: Dr. Patel on 12-14-2022 Basophils/100 WBC (Bld) 0.5 % 0-1 [facility] Bilirubin [Mass/Vol] 0.50 mg/dL 0.20-1.00 [facility] Comment on above: For patients on eltr ombopag therapy, use of Dimension [place] TBIL is not recommended. Chloride [Moles/Vol] 100 mmol/L 98-107 [facility] Cholesterol [Mass/Vol] 242 mg/dL <200 [facility] Comment on above: <200 mg/dL Desirable 200-240 mg/dL Borderline >240 mg/dL High Risk Eosinophils/100 WBC (Bld) 0.6 % 0-5 [facility] Glucose [Mass/Vol] 105 mg/dL 74-106 [facility] Comment on above: Fasting Glucose resu lt from 100 to 125 mg/dL suggests IMPAIRED HOMEOSTASIS per A.D.A. criteria. Neutrophils (Bld) [#/Vol] 5.5 10*3/uL 2.0-7.7 [facility] Neutrophils/100 WBC (Bld) 57.2 % 47-70 [facility] Potassium [Moles/Vol] 4.0 mmol/L 3.5-5.1 [facility] Protein [Mass/Vol] 8.0 g/dL 6.4-8.2 [facility] Sodium [Moles/Vol] 134 mmol/L 136-145 [facility] Triglyceride [Mass/Vol] 448 mg/dL <199 [facility] Comment on above: The drugs N-Acetylcy steine and Metamizole may falsely depress this assay. TRIGLYCERIDE IS GREATER THAN 400 mg/dL. LDL RESULT IS INVALID AND WILL NOT BE REPORTED.Serum Triglycerides Reference Interval Normal <150 mg/dL Borderline high 150 - 199 mg/dL High 200 - 499 mg/dL Very High > or = 500 mg/dL WBC (Bld) [#/Vol] 9.6 10*3/uL 4.4-11.0 [facility] Blood erythrocytes count (nu mber/volume)Ordered By: Dr. Patel on 12-14-2022 RBC (Bld) [#/Vol] 5.03 10*6/uL 4.2-5.4 [facility] Blood hemoglobin measurement (mass/volume)Ordered By: Dr. Patel on 12-14-2022 Hemoglobin (Bld) [Mass/Vol] 14.3 g/dL 12.0-15.0 [facility] Blood lymphocytes/100 leukoc ytesOrdered By: Dr. Patel on 12-14-2022 Lymphocytes/100 WBC (Bld) 29.7 % 19-41 [facility] Blood monocytes/100 leukocyt esOrdered By: Dr. Patel on 12-14-2022 Monocytes/100 WBC (Bld) 11.0 % 0-10 [facility] Blood platelet mean volumeOr dered By: Dr. Patel on 12-14-2022 Platelet mean volume (Bld) [Entitic vol] 10.8 fL 6.2-12.0 [facility] Determination of erythrocyte mean corpuscular volume (MCV)Ordered By: Dr. Patel on 12-14-2022 MCV (RBC) [Entitic vol] 91.1 fL 81-99 [facility] Hematocrit Auto (Bld) [Volum e fraction]Ordered By: Dr. Patel on 12-14-2022 Hematocrit (Bld) [Volume fraction] 45.8 % 37-47 [facility] - Chemistry and C hemistry - challengeOrdered By: Dr. Patel on 12-14-2022 ALP [Catalytic activity/Vol] 87 U/L 45-117 [facility] ALT [Catalytic activity/Vol] 27 U/L 13-56 [facility] CO2 [Moles/Vol] 26.0 mmol/L 21.0-32.0 [facility] Cobalamin (Vitamin B12) [Mass/Vol] 570 pg/mL 211-911 [facility] Free T4 [Mass/Vol] 1.51 ng/dL 0.76-1.46 [facility] Globulin (S) [Mass/Vol] 4.3 g/dL 2.2-4.2 [facility] Urea nitrogen/Creatinine [Mass ratio] 11.2 mg/mg 10-20 [facility] - Hematology and Cell countsOrdered By: Dr. Patel on 12-14-2022 Erythrocyte distribution width (RBC) [Entitic vol] 46.7 fL 35.1-43.9 [facility] Erythrocyte distribution width (RBC) [Ratio] 14.0 % 11.6-14.6 [facility] Immature granulocytes/100 WBC (Bld) 1.000 % 0.0-0.9 [facility] Comment on above: IG% - Immature Granu locytes (promyelocytes, myelocytes and metamyelocytes) > 1% indicates that a LEFT SHIFT is Present. MCH (RBC) [Entitic mass] 28.4 pg 27.0-32.0 [facility] Nucleated RBC/100 WBC (Bld) [Ratio] 0 % 0-5 [facility] MCHC Auto (RBC) [Mass/Vol]Or dered By: Dr. Patel on 12-14-2022 MCHC (RBC) [Mass/Vol] 31.2 g/dL 32-36 [facility] No Panel InformationOrdered By: Dr. Patel on 12-14-2022 Estimated GFR (MDRD) Amer 61 mL/min >60 [facility] Comment on above: GFR Calc Estimated GFR (MDRD) Non-Af Amer 50 mL/min >60 [facility] Comment on above: Non- GFR Calc Thyroid Stimulating Hormone (TSH) 0.57 uIU/mL 0.358-3.74 [facility] Vitamin D 25-Hydroxy 75.7 ng/mL [facility] Comment on above: Vitamin D 25(OH) Sta tus Range Deficiency <20 ng/mL (50nmol/L) Insufficiency 20 - 30 ng/mL (50 - 75 nmol/L) Sufficiency 30 - 100 ng/mL (75 - 250 nmol/L) Toxicity >100 ng/mL (>250 nmol/L) Platelets bldOrdered By: Dr. Patel on 12-14-2022 Platelets (Bld) [#/Vol] 317 10*3/uL 150-450 [facility] Serum or plasma albumin tamy urement (mass/volume)Ordered By: Dr. Patel on 12-14-2022 Albumin [Mass/Vol] 3.7 g/dL 3.2-5.0 [facility] Serum or plasma albumin/glob ulin mass ratioOrdered By: Dr. Patel on 12-14-2022 Albumin/Globulin [Mass ratio] 0.9 {ratio} 0.9-2.4 [facility] Serum or plasma calcium tamy urement (mass/volume)Ordered By: Dr. Patel on 12-14-2022 Calcium [Mass/Vol] 9.3 mg/dL 8.5-10.1 [facility] Serum or plasma cholesterol in HDL measurement (mass/volume)Ordered By: Dr. Patel on 12-14-2022 Cholesterol in HDL [Mass/Vol] 44 mg/dL >40 [facility] Comment on above: The drugs N-Acetylcy steine and Metamizole may falsely depress this assay. Reference Range HDL <40 mg/dL Low HDL Cholesterol HDL >or= 60 mg/dL High HDL Cholesterol Serum or plasma cholesterol in VLDL measurement (mass/volume)Ordered By: Dr. Patel on 12-14-2022 Cholesterol in VLDL [Mass/Vol] TNP [facility] Comment on above: Test not performed Serum or plasma creatinine m easurement (mass/volume)Ordered By: Dr. Patel on 12-14-2022 Creatinine [Mass/Vol] 1.16 mg/dL 0.55-1.02 [facility] Comment on above: The validity of the calculated GFR & GFRAA in patients over 70 years has not been determined. Clinical correlation is essential. Serum or plasma low density lipoprotein (LDL) cholesterol measurement (mass/volume)Ordered By: Dr. Patel on 12-14-2022 Cholesterol in LDL [Mass/Vol] TNP [facility] Comment on above: Test not performed Serum or plasma urea nitroge n measurement (mass/volume)Ordered By: Dr. Patel on 12-14-2022 Urea nitrogen [Mass/Vol] 13 mg/dL 7-18 [facility] Thin prep Papanicolaou smear with manual screeningOrdered By: Dr. Patel on 12-14-2022 Thin prep Papanicolaou smear with manual screening 30 U/L 15-37 [facility] Thin prep Papanicolaou smear with manual screening 8 5-15 [facility] XR SPINE LUMBOSACRAL 2 OR 3 VIEWSon [...] 8:14:43 AM Ordering Provider: PHY REFERRING Normal [facility] (MD) Absolute lymphocyte counton 07-06-2022 Lymphocytes Auto (Unsp spec) [#/Vol] 2.79 10*3/uL 0.83-4.51 [facility] Work Phone: Basophil percentageon 2021 Basophils/100 WBC (Bld) 0.6 % 0-1 [facility] Work Phone: Bilirubin [Mass/Vol] 0.50 mg/dL 0.20-1.00 [facility] Work Phone: Comment on above: For patients on eltr ombopag therapy, use of Dimension [place] TBIL is not recommended. Chloride [Moles/Vol] 101 mmol/L 98-107 [facility] Work Phone: Cholesterol [Mass/Vol] 261 mg/dL <200 [facility] Work Phone: Comment on above: <200 mg/dL Desirable 200-240 mg/dL Borderline >240 mg/dL High Risk Eosinophils/100 WBC (Bld) 0.7 % 0-5 [facility] Work Phone: Glucose [Mass/Vol] 117 mg/dL 74-106 [facility] Work Phone: Comment on above: Fasting Glucose resu lt from 100 to 125 mg/dL suggests IMPAIRED HOMEOSTASIS per A.D.A. criteria. Neutrophils (Bld) [#/Vol] 4.3 10*3/uL 2.0-7.7 [facility] Work Phone: Neutrophils/100 WBC (Bld) 52.6 % 47-70 [facility] Work Phone: Potassium [Moles/Vol] 4.4 mmol/L 3.5-5.1 [facility] Work Phone: Comment on above: Slight Hemolysis, Re sult may be falsely increased. Protein [Mass/Vol] 8.1 g/dL 6.4-8.2 [facility] Work Phone: Sodium [Moles/Vol] 132 mmol/L 136-145 [facility] Work Phone: Triglyceride [Mass/Vol] 314 mg/dL <199 [facility] Work Phone: Comment on above: The drugs N-Acetylcy steine and Metamizole may falsely depress this assay.Serum Triglycerides Reference Interval Normal <150 mg/dL Borderline high 150 - 199 mg/dL High 200 - 499 mg/dL Very High > or = 500 mg/dL WBC (Bld) [#/Vol] 8.1 10*3/uL 4.4-11.0 [facility] Work Phone: Blood erythrocytes count (nu mber/volume)on 07-06-2022 RBC (Bld) [#/Vol] 4.82 10*6/uL 4.2-5.4 [facility] Work Phone: Blood hemoglobin measurement (mass/volume)on 07-06-2022 Hemoglobin (Bld) [Mass/Vol] 14.8 g/dL 12.0-15.0 [facility] Work Phone: Blood lymphocytes/100 leukoc yteson 07-06-2022 Lymphocytes/100 WBC (Bld) 34.4 % 19-41 [facility] Work Phone: Blood monocytes/100 leukocyt eson 07-06-2022 Monocytes/100 WBC (Bld) 10.8 % 0-10 [facility] Work Phone: Blood platelet mean volumeon 07-06-2022 Platelet mean volume (Bld) [Entitic vol] 11.0 fL 6.2-12.0 [facility] Work Phone: Determination of erythrocyte mean corpuscular volume (MCV)on 07-06-2022 MCV (RBC) [Entitic vol] 92.3 fL 81-99 [facility] Work Phone: Hematocrit Auto (Bld) [Volum e fraction]on 07-06-2022 Hematocrit (Bld) [Volume fraction] 44.5 % 37-47 [facility] Work Phone: Laboratory - Chemistry and C hemistry - challengeon 07-06-2022 ALP [Catalytic activity/Vol] 87 U/L 45-117 [facility] Work Phone: ALT [Catalytic activity/Vol] 32 U/L 13-56 [facility] Work Phone: CO2 [Moles/Vol] 25.0 mmol/L 21.0-32.0 [facility] Work Phone: Cobalamin (Vitamin B12) [Mass/Vol] 287 pg/mL 211-911 [facility] Work Phone: Free T4 [Mass/Vol] 1.68 ng/dL 0.76-1.46 [facility] Work Phone: [phone] Globulin (S) [Mass/Vol] 4.5 g/dL 2.2-4.2 [facility] Work Phone: [phone] Magnesium [Mass/Vol] 2.3 mg/dL 1.6-2.6 [facility] Work Phone: [phone] Comment on above: Slight Hemolysis, Re sult may be falsely increased. Urea nitrogen/Creatinine [Mass ratio] 17.8 mg/mg 10-20 [facility] Work Phone: Laboratory - Hematology and Cell countson 07-06-2022 Erythrocyte distribution width (RBC) [Entitic vol] 43.3 fL 35.1-43.9 [facility] Work Phone: Erythrocyte distribution width (RBC) [Ratio] 12.8 % 11.6-14.6 [facility] Work Phone: [phone] Immature granulocytes/100 WBC (Bld) 0.900 % 0.0-0.9 [facility] Work Phone: [phone] Comment on above: IG% - Immature Granu locytes (promyelocytes, myelocytes and metamyelocytes) > 1% indicates that a LEFT SHIFT is Present. MCH (RBC) [Entitic mass] 30.7 pg 27.0-32.0 [facility] Work Phone: [phone] Nucleated RBC/100 WBC (Bld) [Ratio] 0 % 0-5 [facility] Work Phone: MCHC Auto (RBC) [Mass/Vol]on 07-06-2022 MCHC (RBC) [Mass/Vol] 33.3 g/dL 32-36 [facility] Work Phone: No Panel Informationon 07-06 Estimated GFR (MDRD) Amer 88 mL/min >60 [facility] Work Phone: Comment on above: GFR Calc Estimated GFR (MDRD) Non-Af Amer 73 mL/min >60 [facility] Work Phone: Comment on above: Non- GFR Calc Thyroid Stimulating Hormone (TSH) 0.23 uIU/mL 0.358-3.74 [facility] Work Phone: Vitamin D 25-Hydroxy 15.7 ng/mL [facility] Work Phone: Comment on above: Vitamin D 25(OH) Sta tus Range Deficiency <20 ng/mL (50nmol/L) Insufficiency 20 - 30 ng/mL (50 - 75 nmol/L) Sufficiency 30 - 100 ng/mL (75 - 250 nmol/L) Toxicity >100 ng/mL (>250 nmol/L) Platelets bldon 07-06-2022 Platelets (Bld) [#/Vol] 300 10*3/uL 150-450 [facility] Work Phone: Serum or plasma albumin tamy urement (mass/volume)on 07-06-2022 Albumin [Mass/Vol] 3.6 g/dL 3.2-5.0 [facility] Work Phone: Serum or plasma albumin/glob ulin mass ratioon 07-06-2022 Albumin/Globulin [Mass ratio] 0.8 {ratio} 0.9-2.4 [facility] Work Phone: Serum or plasma calcium tamy urement (mass/volume)on 07-06-2022 Calcium [Mass/Vol] 9.6 mg/dL 8.5-10.1 [facility] Work Phone: Serum or plasma cholesterol in HDL measurement (mass/volume)on 07-06-2022 Cholesterol in HDL [Mass/Vol] 48 mg/dL >40 [facility] Work Phone: Comment on above: The drugs N-Acetylcy steine and Metamizole may falsely depress this assay. Reference Range HDL <40 mg/dL Low HDL Cholesterol HDL >or= 60 mg/dL High HDL Cholesterol Serum or plasma cholesterol in VLDL measurement (mass/volume)on 07-06-2022 Cholesterol in VLDL [Mass/Vol] 63 mg/dL 5-40 [facility] Work Phone: Serum or plasma creatinine m easurement (mass/volume)on 07-06-2022 Creatinine [Mass/Vol] 0.84 mg/dL 0.55-1.02 [facility] Work Phone: Comment on above: The validity of the calculated GFR & GFRAA in patients over 70 years has not been determined. Clinical correlation is essential. Serum or plasma low density lipoprotein (LDL) cholesterol measurement (mass/volume)on 07-06-2022 Cholesterol in LDL [Mass/Vol] 150 mg/dL 0-130 [facility] Work Phone: Serum or plasma urea nitroge n measurement (mass/volume)on 07-06-2022 Urea nitrogen [Mass/Vol] 15 mg/dL 7-18 [facility] Work Phone: Thin prep Papanicolaou smear with manual screeningon 07-06-2022 Thin prep Papanicolaou smear with manual screening 24 U/L 15-37 [facility] Work Phone: Comment on above: Slight Hemolysis, Re sult may be falsely increased. Thin prep Papanicolaou smear with manual screening 6 5-15 [facility] Work Phone: Absolute lymphocyte counton 11-09-2021 Lymphocytes Auto (Unsp spec) [#/Vol] 1.41 10*3/uL 0.83-4.51 [facility] Work Phone: Basophil percentageon 04-27- 2022 Basophil percentage 25-50 SEEN /hpf [facility] Work Phone: Basophils/100 WBC (Bld) 0.4 % 0-1 [facility] Work Phone: Chloride [Moles/Vol] 94 mmol/L 98-107 [facility] Work Phone: Eosinophils/100 WBC (Bld) 0.0 % 0-5 [facility] Work Phone: Glucose [Mass/Vol] 113 mg/dL 74-106 [facility] Work Phone: Comment on above: Fasting Glucose resu lt from 100 to 125 mg/dL suggests IMPAIRED HOMEOSTASIS per A.D.A. criteria. Neutrophils (Bld) [#/Vol] 3.1 10*3/uL 2.0-7.7 [facility] Work Phone: Neutrophils/100 WBC (Bld) 57.5 % 47-70 [facility] Work Phone: Potassium [Moles/Vol] 3.9 mmol/L 3.5-5.1 [facility] Work Phone: Sodium [Moles/Vol] 127 mmol/L 136-145 [facility] Work Phone: WBC (Bld) [#/Vol] 5.3 10*3/uL 4.4-11.0 [facility] Work Phone: Bilirubin Test strip Ql (U)o n 11-09-2021 Bilirubin Ql (U) Negative Negative [facility] Work Phone: Blood erythrocytes count (nu mber/volume)on 11-09-2021 RBC (Bld) [#/Vol] 5.05 10*6/uL 4.2-5.4 [facility] Work Phone: Blood hemoglobin measurement (mass/volume)on 11-09-2021 Hemoglobin (Bld) [Mass/Vol] 15.6 g/dL 12.0-15.0 [facility] Work Phone: Blood lymphocytes/100 leukoc yteson 11-09-2021 Lymphocytes/100 WBC (Bld) 26.6 % 19-41 [facility] Work Phone: Blood monocytes/100 leukocyt eson 11-09-2021 Monocytes/100 WBC (Bld) 14.7 % 0-10 [facility] Work Phone: Blood platelet mean volumeon 11-09-2021 Platelet mean volume (Bld) [Entitic vol] 10.1 fL 6.2-12.0 [facility] Work Phone: Determination of erythrocyte mean corpuscular volume (MCV)on 11-09-2021 MCV (RBC) [Entitic vol] 92.5 fL 81-99 [facility] Work Phone: Hematocrit Auto (Bld) [Volum e fraction]on 11-09-2021 Hematocrit (Bld) [Volume fraction] 46.7 % 37-47 [facility] Work Phone: Ketones Test strip Ql (U)on 11-09-2021 Ketones Ql (U) 15 mg/dl Negative [facility] Work Phone: Laboratory - Chemistry and C hemistry - challengeon 11-09-2021 CO2 [Moles/Vol] 24.0 mmol/L 21.0-32.0 [facility] Work Phone: Urea nitrogen/Creatinine [Mass ratio] 19.3 mg/mg 10-20 [facility] Work Phone: Laboratory - Hematology and Cell countson 11-09-2021 Erythrocyte distribution width (RBC) [Entitic vol] 46.5 fL 35.1-43.9 [facility] Work Phone: Erythrocyte distribution width (RBC) [Ratio] 13.6 % 11.6-14.6 [facility] Work Phone: Immature granulocytes/100 WBC (Bld) 0.800 % 0.0-0.9 [facility] Work Phone: Comment on above: IG% - Immature Granu locytes (promyelocytes, myelocytes and metamyelocytes) > 1% indicates that a LEFT SHIFT is Present. MCH (RBC) [Entitic mass] 30.9 pg 27.0-32.0 [facility] Work Phone: Nucleated RBC/100 WBC (Bld) [Ratio] 0 % 0-5 [facility] Work Phone: MCHC Auto (RBC) [Mass/Vol]on 11-09-2021 MCHC (RBC) [Mass/Vol] 33.4 g/dL 32-36 [facility] Work Phone: Mucus LM Ql (Urine sed)on Mucus Ql (Urine sed) 0 SEEN /hpf [facility] Work Phone: Nitrite Test strip Ql (U)on 11-09-2021 Nitrite Ql (U) Positive Negative [facility] Work Phone: No Panel Informationon 11-09 Estimated Creatinine Clearance Calc 54.27 ml/min [facility] Work Phone: Estimated GFR (MDRD) Amer 78 mL/min >60 [facility] Work Phone: Comment on above: GFR Calc Estimated GFR (MDRD) Non-Af Amer 65 mL/min >60 [facility] Work Phone: Comment on above: Non- GFR Calc SARS-CoV-2 & FLU Antigen (Rapid) SARS-CoV-2 (COVID 19) [facility] Work Phone: Platelets bldon 11-09-2021 Platelets (Bld) [#/Vol] 192 10*3/uL 150-450 [facility] Work Phone: Protein Test strip Ql (U)on 11-09-2021 Protein Ql (U) 30 mg/dl Negative [facility] Work Phone: Serum or plasma calcium tamy urement (mass/volume)on 11-09-2021 Calcium [Mass/Vol] 8.3 mg/dL 8.5-10.1 [facility] Work Phone: Serum or plasma creatinine m easurement (mass/volume)on 11-09-2021 Creatinine [Mass/Vol] 0.94 mg/dL 0.55-1.02 [facility] Work Phone: Comment on above: The validity of the calculated GFR & GFRAA in patients over 70 years has not been determined. Clinical correlation is essential. Serum or plasma urea nitroge n measurement (mass/volume)on 11-09-2021 Urea nitrogen [Mass/Vol] 18 mg/dL 7-18 [facility] Work Phone: Squamous epithelial cells de tection in urine sediment by light microscopyon 11-09-2021 Epithelial cells.squamous LM Ql (Urine sed) 0 SEEN /hpf [facility] Work Phone: Thin prep Papanicolaou smear with manual screeningon 11-09-2021 Thin prep Papanicolaou smear with manual screening 9 5-15 [facility] Work Phone: Urine blood detectionon 10-15 RBC Ql (U) 25 /ul Negative [facility] Work Phone: RBC Ql (U) 0-5 SEEN /hpf [facility] Work Phone: Urine clarityon 11-09-2021 Clarity (U) Cloudy Clear [facility] Work Phone: Urine color determinationon 11-09-2021 Color (U) Yellow Yellow [facility] Work Phone: Urine glucose detectionon Glucose Ql (U) Normal mg/dl Normal [facility] Work Phone: Urine leukocyte esterase det ection by dipstickon 11-09-2021 Leukocyte esterase Test strip Ql (U) 500 /ul Negative [facility] Work Phone: Urine pHon 11-09-2021 pH (U) 6.0 [pH] [facility] Work Phone: Urine sediment bacteria coun t by microscopy (number/high power field)on 11-09-2021 Bacteria LM.HPF (Urine sed) [#/Area] 4 /[HPF] None Seen [facility] Work Phone: Urine specific gravity measu rementon 11-09-2021 Specific gravity (U) [Rel density] 1.020 [facility] Work Phone: Urobilinogen Auto test strip Ql (U)on 11-09-2021 Urobilinogen Ql (U) Normal mg/dl Normal [facility] Work Phone: Office Visit: C: L shoulde r contusion f/uon 12-29-2016 Documentation of current medications (procedure) Done Invalid Interpretation Code [facility] Work Phone: Protein mass conc Done [facility] Work Phone: Tobacco smoking status NHIS Never [facility] Work Phone: Tobacco smoking status NHIS Current every day smoker [facility] Work Phone: Tobacco use CP Current every day smoker Invalid Interpretation Code [facility] Work Phone: Office Visit: [facility] f/u: L shoulder contusion, R forearm abrasionon 12-19-2016 Documentation of current medications (procedure) Done Invalid Interpretation Code [facility] Work Phone: Fall risk assessment No [facility] Work Phone: Protein mass conc Smoking cessation education (procedure) [facility] Work Phone: Smoking cessation education (procedure) Smoking cessation education (procedure) Invalid Interpretation Code [facility] Work Phone: Tobacco smoking status NHIS Never Invalid Interpretation Code [facility] Work Phone: Tobacco use CPHS Current every day smoker Invalid Interpretation Code [facility] Work Phone: Rx Refill: eRx Request for P ANTOPRAZOLE SOD 40MG TABon 11-30-2015 e-scripts messenger refill request [id number]`PANTOPR AZOLE SOD 40MG TAB`40MG``30 Tablet`30`TAKE ONE TABLET BY MOUTH ONCE DAILY``1`0`06/07/20 15`11/02/2015`Chino Bright Yonathan*`[id number] `[id number]``PANTO PRAZOLE SOD 40MG TAB Quantity: 30 Tablet Instructions: TAKE ONE TABLET BY MOUTH ONCE DAILY [facility] Work Phone: [phone] [facility] [id number]`PANTOPR AZOLE SOD 40MG TAB`40MG``30 Tablet`30`TAKE ONE TABLET BY MOUTH ONCE DAILY``1`0`06/07/20 15`11/02/2015`Chino Bright Yonathan*`[id number] `[id number]``PANTO PRAZOLE SOD 40MG TAB Quantity: 30 Tablet Instructions: TAKE ONE TABLET BY MOUTH ONCE DAILY [facility] Work Phone: Lab Report: CBC W/Diff, Auto matedon 04-12-2015 Absolute Neut 5.6 X10 3/UL 2.0-7.7 [facility] Work Phone: Absolute Neutrophil count 5.6 X10 3/UL Invalid Interpretation Code 2.0-7.7 [facility] Work Phone: Basophils/100 leukocytes 0.2 % Invalid Interpretation Code 0-1 [facility] Work Phone: Basophils/100 WBC (Bld) 0.2 % 0-1 [facility] Work Phone: Eosinophils/100 leukocytes 1.0 % Invalid Interpretation Code 0-5 [facility] Work Phone: Eosinophils/100 WBC (Bld) 1.0 % 0-5 [facility] Work Phone: Erythrocyte distribution width Ratio (RBC) 46.8 fL High 35.1-43.9 [facility] Work Phone: Erythrocyte distribution width Ratio (RBC) 13.4 % 11.6-14.6 [facility] Work Phone: Erythrocytes (RBC) 4.66 10*6/uL Invalid Interpretation Code 4.2-5.4 [facility] Work [phone] Hematocrit (HCT) 44.9 % Invalid Interpretation Code 37-47 [facility] Work Phone: [phone] Hematocrit Volume Fraction (Bld) 44.9 % 37-47 [facility] Work Phone: [phone] Hemoglobin (HGB) 14.8 g/dL 12.0-15.0 [facility] Work Phone: [phone] Immature granulocytes #/vol (Bld) 0.500 % 0.0-0.9 [facility] Work Phone: [phone] immature granulocytes, percentage of total cells, blood 0.500 % Invalid Interpretation Code 0.0-0.9 [facility] Work Phone: [phone] Lymphocytes 4.21 X10 3/UL Invalid Interpretation Code 0.83-4.51 [facility] Work Phone: [phone] Lymphocytes #/vol (Bld) 4.21 X10 3/UL 0.83-4.51 [facility] Work Phone: [phone] Lymphocytes/100 leukocytes 38.4 % Invalid Interpretation Code 19-41 [facility] Work Phone: Lymphocytes/100 WBC (Bld) 38.4 % 19-41 [facility] Work Phone: [phone] MCH 31.8 pg Invalid Interpretation Code 27.0-32.0 [facility] Work Phone: [phone] MCH Entitic mass (RBC) 31.8 pg 27.0-32.0 [facility] Work Phone: [phone] MCHC 33.0 G/GL Invalid Interpretation Code 32-36 [facility] Work Phone: MCHC mass conc (RBC) 33.0 G/GL 32-36 [facility] Work Phone: MCV 96.4 fL Invalid Interpretation Code 81-99 [facility] Work Phone: [phone] MCV Entitic volume (RBC) 96.4 fL 81-99 [facility] Work Phone: [phone] Monocytes/100 leukocytes 8.9 % Invalid Interpretation Code 0-10 [facility] Work Phone: [phone] Monocytes/100 WBC (Bld) 8.9 % 0-10 [facility] Work Phone: [phone] Neutrophils/100 leukocytes 51.0 % Invalid Interpretation Code 47-70 [facility] Work Phone: [phone] Neutrophils/100 WBC (Bld) 51.0 % 47-70 [facility] Work Phone: [phone] Platelet mean volume Entitic volume (Bld) 11.0 fL 6.2-12.0 [facility] Work Phone: [phone] Platelets 281 10*3/mm3 Invalid Interpretation Code 150-450 [facility] Work Phone: Platelets #/vol (Bld) 281 10*3/mm3 150-450 [facility] Work Phone: [phone] PMV by Dayday 11.0 fL Invalid Interpretation Code 6.2-12.0 [facility] Work Phone: [phone] RBC #/vol (Bld) 4.66 10*6/uL 4.2-5.4 [facility] Work Phone: [phone] RDW-CA 13.4 % Invalid Interpretation Code 11.6-14.6 [facility] Work Phone: [phone] red blood cell distribution width, size density 46.8 fL High 35.1-43.9 [facility] Work Phone: [phone] WBC #/vol (Bld) 11.0 10*3/uL 4.4-11.0 [facility] Work Phone: [phone] WBC (Leukocytes) 11.0 10*3/uL Invalid Interpretation Code 4.4-11.0 [facility] Work Phone: [phone] Lab Report: [facility] Alanine aminotransferase (ALT) 37 U/L 12-78 [facility] Work Phone: Albumin 4.2 g/dL 3.4-5.0 [facility] Work Phone: Albumin/Globulin Ratio 1.1 {ratio} 0.9-2.4 [facility] Work Phone: Alkaline phosphatase (ALP) 95 U/L Invalid Interpretation Code 50-136 [facility] Work Phone: ALP enzyme act/vol (Bld) 95 U/L 50-136 [facility] Work Phone: Anion gap 8 mmol/L Invalid Interpretation Code 5-15 [facility] Work Phone: Anion gap molar conc 8 mmol/L 5-15 [facility] Work Phone: Aspartate aminotransferase (AST) 25 U/L 15-37 [facility] Work Phone: Bilirubin (total) 0.60 mg/dL 0.20-1.00 [facility] Work Phone: BUN/Creatinine Ratio 10.3 RATIO 10-20 [facility] Work Phone: Calcium 8.9 mg/dL 8.5-10.1 [facility] Work Phone: Chloride 104 mmol/L 98-107 [facility] Work Phone: CO2 23.0 mmol/L Invalid Interpretation Code 21.0-32.0 [facility] Work Phone: CO2 ppres (BldV) 23.0 mmol/L 21.0-32.0 [facility] Work Phone: Creatinine 0.97 mg/dL 0.55-1.20 [facility] Work Phone: eGFR (non-black) 64 mL/min/{1.73_m2} >60 [facility] Work Phone: eGFR (non-black) 78 mL/min/{1.73_m2} Invalid Interpretation Code >60 [facility] Work Phone: EST GFR - AA 78 mL/min >60 [facility] Work Phone: [phone] Globulin 3.9 g/dL High 2.3-3.5 [facility] Work Phone: Globulin mass conc (S) 3.9 g/dL High 2.3-3.5 [facility] Work Phone: Glucose 94 mg/dL Invalid Interpretation Code 70-110 [facility] Work Phone: [phone] Glucose mass conc 94 mg/dL 70-110 [facility] Work Phone: Potassium 3.7 mmol/L 3.5-5.1 [facility] Work Phone: Protein 8.1 g/dL 6.4-8.2 [facility] Work Phone: Sodium 135 mmol/L Low 136-145 [facility] Work Phone: Urea nitrogen 10 mg/dL 7-18 [facility] Work Phone: Lab Report: Lipid Profileon 04-12-2015 Cholesterol 251 mg/dL High 200 [facility] Work Phone: HDL Cholesterol 47 mg/dL [facility] Work Phone: LDL Cholesterol 135 mg/dL High 0-130 [facility] Work Phone: Triglyceride 343 mg/dL High [facility] Work Phone: very low density lipoproteins 69 mg/dL High 5-40 [facility] Work Phone: Lab Report: CMPon 04-17-2014 ALK 86 U/L Normal 50-136 [facility] Work Phone: GE use only - for [employer] import when terms are not otherwise specified 86 U/L Normal 50-136 [facility] Work Phone: Lab Report: UAon 04-17-2014 specific gravity, urine 1.010 Normal 1.002-1.030 [facility] Work Phone: Office Visiton 07-04-2013 influenza virus A antigen Negative [facility] Work Phone: [phone] Office Visiton 01-06-2013 Albumin Ql (U) Negative [facility] Work Phone: [phone] Bilirubin Ql (U) Negative [facility] Work Phone: [phone] blood in urine (hemoglobin) by dipstick hemolyzed trace Invalid Interpretation Code [facility] Work Phone: [phone] Glucose Test strip mass conc (U) Negative [facility] Work Phone: [phone] Ketones mass conc (U) Negative [facility] Work Phone: [phone] Nitrite Ql (U) Negative [facility] Work Phone: [phone] pH (U) 6.0 [pH] [facility] Work Phone: [phone] Urine, appearance clear [facility] Work Phone: [phone] Urine, bilirubin presence Negative Invalid Interpretation Code [facility] Work Phone: [phone] Urine, color yellow [facility] Work Phone: [phone] Urine, glucose presence Negative Invalid Interpretation Code [facility] Work Phone: [phone] Urine, ketones presence Negative Invalid Interpretation Code [facility] Work Phone: [phone] Urine, leukocyte esterase presence 1+ [facility] Work Phone: [phone] Urine, nitrite presence Negative Invalid Interpretation Code [facility] Work Phone: [phone] Urine, pH 6.0 [pH] Invalid Interpretation Code [facility] Work Phone: [phone] Urine, protein Negative Invalid Interpretation Code [facility] Work Phone: [phone] Urine, urobilinogen presence Negative [facility] Work Phone: [phone] Office Visiton 07-16-2004 General categories [interpretation] of Cervical or vaginal smear or scraping by Cyto stain Normal [facility] Work Phone: [phone] Office Visiton 07-16-2003 Breast Mammogram screening Normal Bilateral [facility] Work Phone: Vital Signs Date Time Vital Sign Value Performing Clinician Candi mccarty 02-25-2025 10:06-0400 Body temperature 98.9 [degF] Dr. Adriano Patel DO Work Phone: [facility] 02-25-2025 10:06-0400 Diastolic blood pressure 72 mm[Hg] Dr. Adriano Patel DO Work Phone: [facility] 02-25-2025 10:06-0400 Heart rate 85 /min Dr. Adriano Patel DO Work Phone: [facility] 02-25-2025 10:06-0400 Respiratory rate 24 /min Dr. Adriano Patel DO Work Phone: [facility] 02-25-2025 10:06-0400 SaO2% (BldA) [Mass fraction] 97 % Dr. Adriano Patel DO Work Phone: [facility] 02-25-2025 10:06-0400 Systolic blood pressure 137 mm[Hg] Dr. Adriano Patel DO Work Phone: [facility] 02-25-2025 09:00-0400 Inhaled oxygen flow rate 2 L/min Dr. Adriano Patel DO Work Phone: [facility] 02-25-2025 06:52-0400 Body height 162.[address] Adriano Patel DO Work Phone: [facility] 02-25-2025 06:52-0400 Body mass index (BMI) [Ratio] 36.8 kg/m2 Dr. Adriano Patel DO Work Phone: [facility] 02-25-2025 06:52-0400 Body weight 97.[address] Adriano Patel DO Work Phone: [facility] 11-09-2021 09:14-0400 Diastolic blood pressure 87 mm[Hg] [facility] Work Phone: 11-09-2021 09:14-0400 Systolic blood pressure 135 mm[Hg] [facility] Work Phone: 11-09-2021 07:09-0400 Body height 162.56 cm [facility] Work Phone: 11-09-2021 07:09-0400 Body mass index (BMI) [Ratio] 29.1 kg/m2 [facility] Work Phone: 11-09-2021 07:09-0400 Body temperature 97.4 [degF] [facility] Work Phone: 11-09-2021 07:09-0400 Body weight 77 kg [facility] Work Phone: 11-09-2021 07:09-0400 Heart rate 93 /min [facility] Work Phone: 11-09-2021 07:09-0400 Respiratory rate 14 /min [facility] Work Phone: 11-09-2021 07:09-0400 SaO2% (BldA) [Mass fraction] 96 % [facility] Work Phone: 12-29-2016 15:22-0400 BMI (Body Mass Index) 32.09 kg/m2 Arsalan CHU [facility] Work Phone: 12-29-2016 15:22-0400 Body Temperature 99 [degF] Arsalan CHU [facility] Work Phone: 12-29-2016 15:22-0400 BP Diastolic 76 mm[Hg] Arsalan CHU [facility] Work Phone: 12-29-2016 15:22-0400 BP Systolic 128 mm[Hg] Arsalan CHU [facility] Work Phone: 12-29-2016 15:22-0400 Height 162.56 cm Arsalan CHU [facility] Work Phone: 12-29-2016 15:22-0400 Pulse (Heart Rate) 92 /min Arsalan Russosarah CHU [facility] Work Phone: 12-29-2016 15:22-0400 Pulse Oximetry 95 % Arsalan Maher KIMBER[facility] Work Phone: 12-29-2016 15:22-0400 Respiratory Rate 18 /min Arsalan Maher [facility] Work Phone: 12-29-2016 15:22-0400 Weight 84.82 kg Arsalan Maher [facility] Work Phone: 12-19-2016 15:33-0400 BMI (Body Mass Index) 32.16 kg/m2 Torri Boo LPN [facility] Work Phone: 12-19-2016 15:33-0400 Body Temperature 98.7 [degF] Torri Boo LPN [facility] Work Phone: 12-19-2016 15:33-0400 BP Diastolic 60 mm[Hg] Torri Boo LPN [facility] Work Phone: 12-19-2016 15:33-0400 BP Systolic 104 mm[Hg] Torri Boo LPN [facility] Work Phone: 12-19-2016 15:33-0400 Height 162.56 cm Torri Boo LPN [facility] Work Phone: 12-19-2016 15:33-0400 Pulse (Heart Rate) 94 /min Torri Boo LPN [facility] Work Phone: 12-19-2016 15:33-0400 Pulse Oximetry 94 % Torri Boo LPN [facility] Work Phone: 12-19-2016 15:33-0400 Respiratory Rate 14 /min Torri Boo LPN [facility] Work Phone: 12-19-2016 15:33-0400 Weight 85 kg Torri Boo LPN [facility] Work Phone: 03-02-2016 [phone] BSA (Body Surface Area) 1.91 m2 Torri Rajeev AMOS [facility] Work Phone: Encounters Encounter Date Encounter Type Care Provider Facility Start: 03-17-2025 ambulatory [facility] Facility: [facility] Start: 03-11-2025 ambulatory [facility] Facility: [facility] Start: 02-25-2025 Evaluation and management of inpatient Dr. Medhat Yi MD -Progressive Care Unit Work Phone: Start: 02-19-[address] Adriano Patel DO -[facility] Start: 02-19-2025 ambulatory [facility] Facility: [facility] Start: 02-12-2025 End: 02-12-[address] Adriano Patel DO Work Phone: -[facility] Start: 02-12-2025 End: 02-12-[address] Adriano Patel DO -[facility] Start: 02-12-2025 End: 02-12-2025 ambulatory [facility] Facility:[facility] Start: 07-21-2024 ambulatory [facility] Facility: [facility] Start: 07-14-2024 End: 07-14-2024 ambulatory [facility] Facility:[facility] Start: 02-26-2024 End: 02-26-2024 ambulatory [facility] Facility:[facility] Start: 12-14-2022 End: 12-14-2022 ambulatory [facility] Work Phone: Start: 12-14-2022 End: 12-14-2022 Patient encounter procedure [facility]-Laboratory, [facility] Start: 09-23-2022 End: 09-24-2022 ambulatory [facility] WO ID REFERRING Facility:A Start: 09-23-2022 End: 09-23-2022 Patient encounter procedure PH[facility] WO ID REFERRING [facility]ady [facility] Start: 07-06-2022 End: 07-06-2022 ambulatory [facility] Work Phone: Start: 07-06-2022 End: 07-06-2022 Patient encounter procedure [facility]-Laboratory, Aquiles Dawn [facility] Start: 11-09-2021 End: 11-09-2021 Emergency department patient visit [facility]-Emergency Department Start: 08-03-2021 End: 08-03-2021 Patient encounter procedure [facility]-Outpatient Breast Imaging Start: 12-20-2009 Encounter for genera l adult medical examination without abnormal findings Arsalan CHU [facility] Work Phone: Procedures Date Procedure Procedure Detail Performing Clinician Start: 02-25-2025 Urnls dip stick/tabl et reagent auto microscopy Dr. Adriano Patel DO Work Phone: Start: 02-25-2025 X-ray of chest, PA a nd lateral views Dr. Adriano Patel DO Work Phone: Start: 02-25-[address] Adriano Patel DO Work Phone: Start: 02-25-2025 CT of head without contrast Dr. Adriano Patel DO Work Phone: Start: 07-06-2022 Radiography of thora cic spine [...] Treatment Date Care Activity Detail Author Start: 02-26-2025 Thyroid stimulating hormone measurement [facility] Start: 02-25-2025 Electrolytes measurement, urine [facility] Start: 02-25-2025 Microalbumin [Mass/volume] in Urine [facility] Start: 02-25-2025 Osmolality of Urine [facility] Start: 02-25-2025 Protein/Creatinine [Ratio] in Urine [facility] Start: 02-25-2025 [facility] Start: 02-25-2025 Verification routine [facility] Start: 02-25-2025 Admission procedure [facility] Start: 02-25-2025 Hospital admission, emergency, from emergency room, medical nature [facility] Start: 02-25-2025 [facility] Start: 11-09-2021 Bacteria identified in Urine by Culture Urine Culture [facility] Work Phone: Start: 12-29-2016 End: 12-29-2016 Appointment Appointment [facility] Work Phone: Start: 12-19-2016 End: 12-19-2016 Appointment Appointment [facility] Work Phone: Start: 03-02-2016 End: 03-02-2016 *CBC with Differential *CBC with Differential [facility] Work Phone: Start: 03-02-2016 End: 03-02-2016 *CMP Complete Metabolic Panel *CMP Complete Metabolic Panel [facility] Work Phone: Start: 03-02-2016 End: 03-02-2016 Lipid panel [AGGREGATE] *Lipid Profile [facility] Work Phone: Start: 03-02-2016 End: 03-02-2016 Mammogram, screening Mammogram, Screening, both breasts [facility] Work Phone: Start: 03-29-2015 End: 04-12-2015 *CBC with Differential *CBC with Differential [facility] Work Phone: Start: 03-29-2015 End: 04-12-2015 *CMP Complete Metabolic Panel *CMP Complete Metabolic Panel [facility] Work Phone: Start: 03-29-2015 End: 04-12-2015 Lipid panel [AGGREGATE] *Lipid Profile [facility] Work Phone: Start: 03-29-2015 End: 03-29-2015 Mammogram, screening Mammogram, Screening, both breasts [facility] Work Phone: Start: 03-30-2014 End: 04-01-2014 *CMP Complete Metabolic Panel *CMP Complete Metabolic Panel [facility] Work Phone: Start: 03-30-2014 End: 04-01-2014 *UA - Urinalysis w/o Micro *UA - Urinalysis w/o Micro [facility] Work Phone: Start: 03-30-2014 End: 04-01-2014 CBC W Auto Differential panel - Blood *CBC without Diff [facility] Work Phone: Start: 03-30-2014 End: 04-17-2014 Lipid Profile Lipid Profile [facility] Work Phone: Start: 03-30-2014 End: 03-30-2014 Mammogram-Bilateral Mammogram-Bilateral [facility] Work Phone: Start: 09-29-2013 End: 09-29-2013 Mammogram, Screening, both breasts Mammogram, Screening, both breasts [facility] Work Phone: Start: 07-04-2013 End: 07-04-2013 Influenza assay w/optic Flu Test A [facility] Work Phone: Start: 03-18-2013 End: 04-17-2014 *CBC with Differential *CBC with Differential [facility] Work Phone: Start: 03-18-2013 End: 04-17-2014 *CMP Complete Metabolic Panel *CMP Complete Metabolic Panel [facility] Work Phone: Start: 03-18-2013 End: 04-17-2014 *UA - Urinalysis w/o Micro *UA - Urinalysis w/o Micro [facility] Work Phone: Start: 03-18-2013 End: 03-18-2013 Complete sleep workup (PSG,CPAP as indicated) & Follow up Complete sleep workup (PSG,CPAP as indicated) & Follow up [facility] Work Phone: Start: 03-18-2013 End: 04-17-2014 Lipid panel [AGGREGATE] *Lipid Profile [facility] Work Phone: Start: 01-06-2013 End: 01-06-2013 Urinalysis nonauto w/o scope UA Dipstick (Office) [facility] Work Phone: Start: 12-17-2012 End: 12-17-2012 Follow Up Appt 3 months Follow Up Appt 3 months [facility] Work Phone: Start: 12-17-2012 End: 12-17-2012 Mammogram, Screening, both breasts Mammogram, Screening, both breasts [facility] Work Phone: Start: 09-18-2011 End: 09-22-2011 Prev visit, est, age 40-64 Preventive, Est, 40-64 yr [facility] Work Phone: Start: 07-04-2011 End: 07-04-2011 Follow up Appt 1 week Follow up Appt 1 week [facility] Work Phone: Start: 09-15-2010 End: 07-04-2011 Follow Up as scheduled Follow Up as scheduled [facility] Work Phone: Start: 07-19-2010 End: 07-19-2010 Follow Up Appt 6 months Follow Up Appt 6 months [facility] Work Phone: Start: 12-20-2009 End: 12-20-2009 Follow Up Appt 3 months Follow Up Appt 3 months [facility] Work Phone: Start: 12-07-2009 End: 12-07-2009 Follow Up Appt 1 month Follow Up Appt 1 month [facility] Work Phone: Anion gap in Serum o r Plasma [facility] BUN/Creatinine ratio [facility] Calcium [Mass/volume ] in Serum or Plasma [facility] Carbon dioxide, tota l [Moles/volume] in Central venous blood [facility] Cortisol [Mass/volum e] in Serum or Plasma [facility] Creatinine [Mass/vol ume] in Serum or Plasma [facility] Glucose [Mass/volume ] in Serum or Plasma [facility] Magnesium measurement [facility] Measurement of renal function [facility] Patient Education Coronavirus Di sease 2019 (COVID-19): Caring for Yourself or Others ED CYSTITIS Female Adult [facility] Work Phone: Patient referral [facility] Work Phone: Potassium measurement [facility] Serum chloride measurement [facility] Sodium measurement [facility] Urea nitrogen [Mass/volume] in Serum or Plasma [facility] Payers Date Payer Category Payer Medicare [id number] 2024 Self-pay [id number] 2024 Unknown [id number] 2022 Unknown [id number] 1960 Unknown [id number] Private Health Insurance [id number] Unknown [id number] Unknown [id number] 2.16.8 [id number] Unknown [id number] 2.16.8 [id number] Unknown [id number] 2.16.8 [id number] Unknown [id number] 2.16.8 [id number] Unknown [id number] 2.16.8 [id number] Unknown [id number] 2.16.8 [id number] Unknown [id number] 2.16.8 [id number] Social History Date Type Detail Facility Start: 11-09-2021 End: 11-09-2021 Tobacco smoking status VAIS Unknown if ever smoked [facility] Start: 1960 Sex Assigned At Female [facility] Start: 11-09-2021 End: 02-25-2025 Tobacco smoking status NHIS Smokes tobacco daily (finding) [facility] Mental Status Date Assessment Result Facility 11-09-2021 Cognitive function Level Of Cons ciousness Awake;Alert;Appropriate;Follow s Commands [facility] Work Phone: Discharge summary 02-25-2025 Note Date & Type Note Facility 02-25-2025 Discharge summary [facility] Radiology Diagnostic study note 02-25-2025 Note Date & Type Note Facility 02-25-2025 Radiology Diagnostic study note [facility] Imaging Services [address] [place], [place] [address] Chest PA and Lateral MR#: [id number] Acct: [id number] Name: HILTON SEVILLA Rep #: [id number] : 1960 F 64 From: Evans Pham MD PCP: Dr. Adriano Patel, DO Status: REG ER Study:Chest PA and Lateral Date of Exam: 02/25/25 Exam# [id number] Ordering Dr: Flip Recinos DO PROCEDURE: CHEST PA AND LATERAL 02/25/2025 REASON FOR EXAM: HISTORY OF HEART FAILURE TECHNIQUE: CHEST PA AND LATERAL COMPARISON: November 09, 2021 FINDINGS: Hardware: EEG leads Heart: Enlarged. There is likely a pericardial effusion. Mediastinum: Sliding hiatus hernia is present. Patient has a known left-sided arch with aberrant right subclavian. Lungs: Bibasilar atelectasis and small effusions. There may be very mild central congestion. Bones: Degenerative changes are identified within the thoracic spine. RAD/Chest PA and Lateral IMPRESSION: Cardiac enlargement. Likely pericardial effusion. Bibasilar atelectasis and small effusions. Mild congestion. Consider echocardiogram. Emphysema Reading Location: [id number] CC: Dr. Flip Silva DO; Dr. Adriano Patel DO ~ Sales Solutions Associate: Signed [facility] Radiology Diagnostic study note 02-25-2025 Note Date & Type Note Facility 02-25-2025 Radiology Diagnostic study note [facility] Imaging Services [address] [place] [id number] Brain/Head without Contrast MR#: [id number] Acct: [id number] Name: HILTON SEVILLA Rep #: [id number] : 1960 F 64 From: Evans Pham MD PCP: Dr. Adriano Patel DO Status: REG ER Study:Brain/Head without Contrast Date of Exa m: 02/25/25 Exam# [id number] Ordering Dr: Flip Recinos DO PROCEDURE: BRAIN/HEAD WITHOUT CONTRAST 02/25/2025 REASON FOR EXAM: DIZZY TECHNIQUE: BRAIN/HEAD WITHOUT CONTRAST Coronal and Sagittal reconstruction series were provided. One or more dose reduction techniques were used (e.g., Automated exposure control, adjustment of the mA and/or kV according to patient size, use of iterative reconstruction technique. RADIATION DOSE SUMMARY: CTDlvol: 45 mGy DLP: 779 mGycm COMPARISON: November 09, 2021 FINDINGS: Brain: There is no evidence of hemorrhage, acute ischemia or mass. No extra-axial fluid collection, midline shift or mass effect. Patchy hypodensity in the periventricular white matter and deep white matter of the frontal and parietal lobes is similar to prior. CSF Spaces: Mild generalized cerebral atrophy Sinuses/Mastoids: Clear Bones: No fracture There is a small hyperdense, 6 mm nodular focus in the location of the anterior communicating artery that may represent a small aneurysm. This was partially volume averaged on prior exam and is likely unchanged. CT/Brain/Head without Contrast IMPRESSION: 1. No evidence of intracranial hemorrhage or acute ischemia. 2. Changes of chronic microvascular ischemia and volume loss. 3. 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 No change. Reading Location: [id number] CC: Dr. Flip Silva DO; Dr. Adriano Patel DO ~ Sales Solutions Associate: Signed [facility] Discharge summary Note Date & Type Note Facility Discharge summary Note Date/Time February 25, 2025 9:48am [facility] Medical Records Department [address] [place] [address] Emergency Department Summary 02/25/25 MR#: [id number] Acct: [id number] Name: HILTON SEVILLA Rep #:[id number] : 1960 64 From: Flip maravilla DO PCP: Dr. Adriano Patel DO Status:REG ER Location: ED ADDENDUM by Dr. Flip Silva DO on 02/25/[address] Yi evaluated the patient. Okay with patient in PCU despite repeat sodium. Order placed. Blood pressure has improved. UA positive for UTI. Antibiotics ordered. Urine culture sent. 5. UTI 02/25/25 0948<Electronically signed by Flip Silva DO> Cosigner Signature (if applicable): cc: Dr. Adriano Patel DO ~* Signed HPI History of Present Illness Chief Complaint: Nausea/Vomiting Narrative Narrative: Chief complaint and HPI: 64-year-old female with past medical history of hypothyroidism, GERD, CHF presents for evaluation of nausea, lightheadedness, bilateral lower extremity swelling. Patient states she she recently had a switch in her medication. States she was originally on Lasix and potassium replacement however given increases in her potassium she was taken off of Lasix and potassium and placed on lisinopril hydrochlorothiazide. Patient states she has bilateral lower extremity edema but is unsure if she has had any weight gain. She states for the past several days she has had nausea, lightheadedness,general malaise. She denies any fever, chills, shortness of breath, chest pain,abdominal pain, dysuria, URI symptoms, cough. Review of systems: See HPI Medications: As listed on the chart Allergies: As listed on the chart PFSH: Per chart Vital signs: As listed on the chart. Reviewed. Physical exam: Gen: A&O x3, NAD Head: Normocephalic, atraumatic Eyes: No sclera icterus, conjunctiva clear ENT: Moist mucous membranes Neck: Trachea midline, No JVD CV: RRR, no murmurs, + 1 pitting peripheral edema from the feet to the mid calf Resp: Lungs decreased in the bilateral bases, on nasal cannula GI: Abd soft, non-distended, non-tender, no r/r/g Musc: Moves all extremities, no deformity Skin: Warm, dry Neuro: Alert, oriented, grossly intact, sensation intact Psych: Cooperative, appropriate mood and affect [facility] Medical History Hx of gastroesophageal reflux (GERD) Hypothyroidism Home Medications ?Medication ?Instructions ?Recorded ?Last Taken ?Type pantoprazole 40 mg tablet,delayed 40 mg PO DAILY 12/18 Unknown History release levothyroxine 150 mcg tablet 150 mcg PO DAILY 09/13/19 Unknown History (Synthroid) sulfamethoxazole 800 1 tab PO BID #6 tabs 2 Unknown Rx mg-trimethoprim 160 mg tablet (Bactrim DS) Allergy/AdvReac Type Severity Reaction Status Date / Time amoxicillin Allergy Unknown Verified 02/25/25 06:52 Penicillins Allergy Unknown Verified 02/25/25 06:52 azithromycin (From Zithromax AdvReac Rash Verified 02/25/25 06:52 Z-Jl) cephalexin (From Keflex) AdvReac Rash Verified 02/25/25 06:52 erythromycin base AdvReac Rash Verified 02/25/25 06:52 Social History Smoking Status: Current every day smoker tobacco type: cigarettes EXAM Physical Exam Const Vital Signs: 02/25/25 06:52 02/25/25 07:02 02/25/25 07:09 Temperature 97.6 F L Temperature Source Oral Respiratory Rate 19 H Blood Pressure 200/137 H Blood Pressure Mean 158 Pulse Ox 83 97 80 Oxygen Delivery Method Nasal Cannula Room Air Oxygen Flow Rate (L/min) 3 MDM MDM MDM Narrative Medical decision making narrative: 64-year-old female with past medical history of hypothyroidism, GERD, CHF presents for evaluation of nausea, lightheadedness, bilateral lower extremity swelling. Patient states she she recently had a switch in her medication. States she was originally on Lasix and potassium replacement however given increases in her potassium she was taken off of Lasix and potassium and placed on lisinopril hydrochlorothiazide. On presentation, patient is hypertensive andhypoxic on room air. States she usually does not wear her oxygen. Patient placed on nasal cannula. Given hydralazine for blood pressure. Differential diagnosis includes but is not limited to CHF exacerbation, hypertension urgency/emergency, electrolyte abnormality, dehydration, pneumonia although suspect less likely given the HPI, low suspicion for intracranial abnormality orhead bleed however on the differential given blood pressure and dizziness, UTI. Zofran ordered for nausea. Patient not endorsing abdominal pain therefore I do not think any CT abdomen pelvis is needed. Laboratory workup ordered including CT head and chest x-ray. EKG and chest x-ray reviewed. CBC without leukocytosis. Patient has hemoconcentration of 16.2. Platelets unremarkable. BMP shows hyponatremia at 112. This is likely the source of her dizziness. Previous sodium on 02/19 was 127 this is likely secondary to her diuretics. Potassium is mildly elevated at 5.5. No DEBORAH. BNP is elevated at 5756. This isincreased from 02/19. Patient in CHF exacerbation. She is intravascularly depleted although extravascular Frida overloaded. Will hold off on Lasix given the hyponatremia. Will give a [address] of the head negative for intracranial abnormality. 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 No change. On reevaluation, patient is alert and oriented x 3. Patient will warrant admission for CHF and hyponatremia. I spoke with the hospitalist service, Dr. Yi. Before patient is admitted he would like to get a repeat BMP after fluids to assess sodium. If it remains above 112. Patient can go to the PCU. He will come evaluate the patient. Patient was updated all the plan and confirmed understanding. EKG: Interpreted by me/EM physician: EKG shows normal sinus rhythm without any acute ischemic changes. Heart rate 78. Diagnostic: Interpreted by me/EM physician: Chest x-ray with cardiomegaly and bilateral effusions. Pulmonary congestion. Radiology in agreement. Impression: 1. CHF exacerbation with bilateral effusion 2. Acute hypoxia requiring nasal cannula secondary to #1 3. Severe hyponatremia likely secondary to diuretics 4. Hyperkalemia Lab Data Labs: Laboratory Results - last 24 hr 02/25/25 07:18 WBC 8.7 RBC 5.85 H Hgb 16.2 H Hct 49.0 H MCV 83.8 MCH 27.7 MCHC 33.1 RDW Std Deviation 42.1 RDW Coeff of Aury 13.6 Plt Count 263 MPV 9.1 Immature Gran % (Auto) 0.800 Neut % (Auto) 71.2 H Lymph % (Auto) 14.9 L Haskell % (Auto) 12.6 H Eos % (Auto) 0.0 Baso % (Auto) 0.5 Absolute Neuts (auto) 6.2 Absolute Lymphs (auto) 1.29 Nucleated RBC % 0.2 Sodium 112 L* Potassium 5.5 H Chloride 78 L Carbon Dioxide 20.7 L Anion Gap 13 BUN 11 Creatinine 0.70 Estim Creat Clear Calc 91.90 Est GFR (MDRD) Non-Af 96 BUN/Creatinine Ratio 15.4 Glucose 112 H Calcium 9.2 Total Bilirubin 0.67 AST 31 ALT 26 Alkaline Phosphatase 106 H NT pro BNP II 5756 H Total Protein 7.3 Albumin 3.8 Globulin 3.5 Albumin/Globulin Ratio 1.1 Radiography Diagnostic Testing: Clinical Impression(s) from Imaging Studies Brain CT 02/25/25 07:07 IMPRESSION: 1. No evidence of intracranial hemorrhage or acute ischemia. 2. Changes of chronic microvascular ischemia and volume loss. 3. 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 No change. Reading Location: [facility] Chest X-Ray 02/25/25 08:08 IMPRESSION: Cardiac enlargement. Likely pericardial effusion. Bibasilar atelectasis and small effusions. Mild congestion. Consider echocardiogram. Emphysema Reading Location: [facility] Discharge Plan Triage Chief Complaint: Nausea/Vomiting ED Provider: Flip Silva Dx/Rx/DC Orders Prescriptions: No Action levothyroxine [Synthroid] 150 mcg tablet 150 mcg PO DAILY pantoprazole 40 MG tablet 40 mg PO DAILY sulfamethoxazole-trimethoprim [Bactrim DS] 800-160 mg tablet 1 tab PO BID Qty: 6 0RF Primary Care Provider: Adriano Patel Referrals: Adriano Patel DO [Primary Care Provider] - Print Language: Kenyan What to do if you have Problems For any increased pain, shortness of breath, bleeding, nausea or vomiting, chestpain, or any unexpected problems, contact your Primary Care Provider. Call [facility] ([phone]) or report to the closest Emergency Room. Call 911 if necessary. 02/25/25 0858 <Electronically signed by Flip Silva DO> Cosigner Signature (if applicable): CC: Dr. Adriano Patel, ~ Signed [facility] Work Phone: Evaluation + Plan note Note Date & Type Note Facility Evaluation + Plan note No data available for this section [facility] Evaluation note Note Date & Type Note Facility Evaluation note No assessment information availa [facility] Work Phone: Evaluation note Note Date & Type Note Facility Evaluation note Diagnosis Onset Date Resolution CHF exacerbation chronic February 132024 9:28am [facility] Work Phone: Hospital Discharge instructions Note Date & Type Note Facility Hospital Discharge instructions No data available for this section [facility] Progress note Note Date & Type Note Facility Progress note No data available for this section [facility] Reason for referral (narrative) Note Date & Type Note Facility Reason for referral (narrative) No reason for referral information available [facility] Work Phone: Chief Complaint and Reason for Visit Chief Complaint SCREENING syncope Chief Complaint LABS AND XRAY- BACK PAIN Chief Complaint Admit Date CHF EXA, HYPONATREMIA February 25, 2025 9:28am Reason for Visit Admit Date CHF exacerbation February 25, 2025 9: 28am Advance Directives Advance Directive Response Recorded Date/ Time Living Will No November 09, 2021 7:17am Power of Transcriptionist No November 09 7:17am Advance Directive Response Recorded Date/ Time Living Will No November 09, 2021 6:17am Power of Transcriptionist No November 09 6:17am Advance Directive Response Recorded Date/ Time Do you have a Healthcare Power of Transcriptionist? No February 25, 2025 6:52am Summary Purpose Family History No Family History [...] section and content) DATE CREATED AUTHOR 09/25/2022 [employer] [facility] ([place] DATE CREATED AUTHOR AUTHOR'S ORGANIZ ATION 02/24/2025 [facility] Care Teams (unrecognized sec tion and [...] Attending Provider Active Start: February 19, 2025 Team Status: Active Member Role/Relationship Status Dates Dr. Adriano Jorge , DO Primary Care Provider Active Start: February 25, 2025 Dr. Flip Silva , DO Emergency Provider Activ e Start: February 25, 2025 Dr. Medhat Yi MD Admit Provider Active Sta rt: February 25, 2025 Dr. Medhat Yi MD Attending Provider Active Start: February 25, 2025 FOR RECORDS PERTAINING TO PATIENTS WHO [...] BE BASED ON THE PRIMARY CLINICAL RECORDS. [facility]. provides no warranty or guarantee of the accuracy or completeness of information in this document.
--- NOTE | 2025-02-25 18:18 | RAD_ITS ---
PROCEDURE: CHEST 1 VIEW (PORTABLE) 02/25/2025 REASON FOR EXAM: SHORTNESS OF BREATH/ FLUID OVERLOAD TECHNIQUE: Frontal view of the chest. COMPARISON: 02/26/2020 at 8:04 a.m. FINDINGS: Hardware: None. Heart: Heart size is moderately enlarged. Lungs: Persistent small right and moderate left pleural effusions, superimposed consolidation not excluded. Diffuse pulmonary vascular congestion. No definite pneumothorax. Bones: Degenerative changes are identified within the thoracic spine. Other: None. RAD/Chest 1 View (Portable) IMPRESSION: 1. Cardiomegaly with diffuse pulmonary vascular congestion. 2. Small right and moderate left pleural effusions, superimposed consolidation not excluded. Reading Location: [facility]
[2025-02-25 19:17] LABS: Allen Test Positive; Base Excess 2 mmol/L (-2 to +2); FI02 6.0; PO2 64 mmHG (75-100); SITE L Radial; SO2 87 % (95-99)
--- NOTE | 2025-02-25 19:22 | NURSING ---
Dr. Yi notified about patient having increasing SOB as well as patient being drowsy. patient lethargic and hard to arouse to ask orientation questions. patient answers questions appropriately, answers are just delayed. Provider notified about the patient having nausea and no zofran was ordered. ABG ordered as well as 40 mg IV lasix and stat CXR. Patient placed on non-rebreather at 15 liters/min. ABG done by respiratory, CXR done, and lasix given. Patients son at bedside and updated on events. Report called to ARISTIDES Taylor in the ICU. Night charge and LIQUID COMPOUNDER taking patient to the ICU at this time.
--- NOTE | 2025-02-25 20:52 | CON.PCM.CC_ITS ---
HPI Consult Data Date of Consult: 02/25/25 HPI Narrative Reason for Consultation: hyponatremia, acute hypercapnic RF HPI Narrative: HILTON SEVILLA, is a 64 F who presents as an escalation from PCU for decreased LOC and ABG supporting acute hypercapnic RF. She is a smoker, ~13 cigs/day, never been tested or diagnosed with COPD. Not on home O2. No LDCTs. H/o COVID, not severe enought to hospitalize. Prior flu infectinos as well. Otherwise, has been diagnosed with CHF and was on scheduled lasix as OP. PCP changed her regimen and she presents with worsening SOB, edema and is now in the ICU. Initial Na was 112, now up to 116. Nephro following. Diuresed ~500cc after ~60mg IV lasix total since AM. She is now on BIPAP S/T 12brpm/16cwp. ABG showing pH 7.25 and PCO2 ~66. [facility] Medical History Hx of gastroesophageal reflux (GERD) Hypothyroidism Home Medications ?Medication ?Instructions ?Recorded ?Last Taken ?Type pantoprazole 40 mg tablet,delayed 40 mg PO DAILY stoma ch 12/18/16 Unknown History release levothyroxine 150 mcg tablet 150 mcg PO DAILY thyrdoid 09/13/19 Unknown History (Synthroid) Allergy/AdvReac Type Severity Reaction Status Date / Time amoxicillin Allergy Unknown Verified 02/25/25 06:52 Penicillins Allergy Unknown Verified 02/25/25 06:52 azithromycin (From Zithromax AdvReac Rash Verified 02/25/25 06:52 Z-Jl) cephalexin (From Keflex) AdvReac Rash Verified 02/25/25 06:52 erythromycin base AdvReac Rash Verified 02/25/25 06:52 Social History Smoking Status: Current every day smoker tobacco type: cigarettes ROS ROS Narrative 12 or more systems reviewed. Patient reports feeling weak and tired. Denies SOB. Objective Data Objective Data Vital Signs: Vital Signs Last response 3 Temperature 37.2 C 02/25/25 20:00 Temperature Source Temporal 02/25/25 20:00 Pulse Rate 84 02/25/25 20:00 Respiratory Rate 20 H 02/25/25 20:00 Respiratory Effort Short of Breath 02/25/25 18:00 Respiratory Depth Normal 02/25/25 18:00 Respiratory Pattern Normal 02/25/25 19:47 Blood Pressure 128/67 H 02/25/25 20:00 Blood Pressure Mean 87 02/25/25 20:00 Blood Pressure Source Monitor 02/25/25 20:00 Blood Pressure Position Semi-Fowlers 02/25/25 20:00 Blood Pressure Location Right Arm 02/25/25 20:00 Pulse Ox 98 02/25/25 20:00 Oxygen Delivery Method Non-Rebreather 02/25/25 20:00 Oxygen Flow Rate (L/min) 15 02/25/25 20:00 Fraction of Inspired Oxygen (FIO2) 50 02/25/25 19:47 I&O: I&O Last 24 Hours 3 02/24/25 02/25/25 02/25/25 23:59 11:59 23:59 Intake Total 500 / 650 150 / 650 Balance 500 / 650 150 / 650 I&O: Total Stay 3 02/25/25 06:51 thru 02/25/25 18:00 Intake Total 650 Balance 650 Current Meds Ordered / Administered: Current meds ordered / Administered 3 Generic Name Dose Route Start Last Admin Trade Name Freq PRN Reason Stop Dose Admin Enoxaparin Sodium 40 mg 02/25/25 10:34 02/25/25 13:19 Enoxaparin 40 Mg/0.4 Ml Syringe SC 40 mg DAILY SID Administration Furosemide 40 mg 02/26/25 10:00 Furosemide 40 Mg/4 Ml Vial IV BIDLX SID Furosemide 40 mg 02/25/25 20:48 Furosemide 40 Mg/4 Ml Vial IV 02/25/25 20:49 X1 ONE Protocol Levothyroxine Sodium 150 mcg 02/26/25 06:00 Levothyroxine 150 Mcg Tablet PO DAILY@0600 [facility] Ondansetron HCl 4 mg 02/25/25 19:46 02/25/25 20:21 Ondansetron 4 Mg/2 Ml Vial IV 4 mg Q6H PRN PRN Administration NAUSEA/VOMITING Pantoprazole Sodium 40 mg 02/25/25 10:34 02/25/25 13:21 Pantoprazole Sodium 40 Mg Tablet PO 40 mg DAILY SID Administration Sodium Chloride 2 gm 02/25/25 10:00 08/13/25 17:20 Sodium Chloride 1 Gm Tablet PO 2 gm TID SID Administration Sodium Chloride 10 - 40 ml 02/25/25 11:54 02/25/25 20:21 0.9% Saline Lock 10 Ml Syringe IV 10 ml UD PRN Administration SALINE FLUSH Physical Exam Const oriented x3 and no apparent distress General Appearance: cooperative and lethargic HEENT normocephalic, head/scalp atraumatic and moist oral mucous membranes Eyes PERRL, EOMs intact bilaterally and no scleral icterus Neck no JVD Chest inspection of chest normal Resp normal respiratory effort and no use of accessory muscles Auscultation: diminished lung sounds Percussion: dullness Cardio regular rate, regular rhythm and no JVD GI normal to inspection, nondistended, normoactive bowel sounds no CVA tenderness Extremity Extremity Narrative: discoloration of the toes, but pulses intact Neuro oriented x3, CN's II-XII intact bilaterally, moves all extremities and no focal motor deficits Psych cooperative Lab / Micro Data 02/25/25 07:18 02/25/25 17:51 Labs: Laboratory Results - last 24 hr 02/25/25 07:18: WBC 8.7, RBC 5.85 H, Hgb 16.2 H, Hct 49.0 H, MCV 83.8, MCH 27.7, MCHC 33.1, RDW Std Deviation 42.1, RDW Coeff of Aury 13.6, Plt Count 263, MPV 9.1, Immature Gran % (Auto) 0.800, Neut % (Auto) 71.2 H, Lymph % (Auto) 14.9 L, Fajardo % (Auto) 12.6 H, Eos % (Auto) 0.0, Baso % (Auto) 0.5, Absolute Neuts (auto) 6.2, Absolute Lymphs (auto) 1.29, Nucleated RBC % 0.2, Sodium 112 L*, Potassium 5.5 H, Chloride 78 L, Carbon Dioxide 20.7 L, Anion Gap 13, BUN 11, Creatinine 0.70, Estim Creat Clear Calc 91.90, Est GFR (MDRD) Non-Af 96, BUN/Creatinine Ratio 15.4, Glucose 112 H, Calcium 9.2, Total Bilirubin 0.67, AST 31, ALT 26, A lkaline Phosphatase 106 H, NT pro BNP II 5756 H, Total Protein 7.3, Albumin 3.8, Globulin 3.5, Albumin/Globulin Ratio 1.1 02/25/25 09:00: Urine Color Yellow, Urine Clarity Sl. Cloudy, Urine pH 6.0, Ur Specific Maybeury 1.015, Urine Protein 100 H, Urine Glucose (UA) Normal, Urine Ketones 5 H, Urine Occult Blood Negative, Urine Nitrite Negative, Urine Bilirubin Negative, Urine Urobilinogen 1 H, Ur Leukocyte Esterase 500 H, Urine RBC 0 SEEN, Urine WBC 5-10 SEEN, Ur Squamous Epith Cells 5-10 SEEN, Urine Bacteria 2+, Urine Mucus 0 SEEN 02/25/25 10:07: Sodium Cancelled, Potassium Cancelled, Chloride Cancelled, Carbon Dioxide Cancelled, Anion Gap Cancelled, BUN Cancelled, Creatinine Cancelled, Estim Creat Clear Calc Cancelled, Est GFR (MDRD) Non-Af Cancelled, BUN/Creatinine Ratio Cancelled, Glucose Cancelled, Calcium Cancelled, Magnesium Cancelled 02/25/25 10:59: Sodium 115 L*, Potassium 5.2 H, Chloride 78 L, Carbon Dioxide 22.3, Anion Gap 15, BUN 11, Creatinine 0.68 L, Estim Creat Clear Calc 94.46, Est GFR (MDRD) Non-Af 97, BUN/Creatinine Ratio 16.5, Glucose 110 H, Calcium 9.0, Magnesium 2.0, Cortisol AM Sample 26.50 H 02/25/25 14:32: Sodium 116 L* 02/25/25 17:51: Sodium 116 L* ABG Data ABG results: ABG 02/25/25 19:13 Specimen Type ART Sample Site L Radial pH 7.25 L Bicarbonate Actual 28.7 H Total CO2 31 Base Excess 2 O2 Saturation 87 L O2 % 6.0 ABG pCO2 65.9 H ABG pO2 64 L Juan Antonio Test Positive O2 Delivery Device Cannula Vent Mode Not entered Imaging Radiology Impression Brain CT 02/25/25 07:07 IMPRESSION: 1. No evidence of intracranial hemorrhage or acute ischemia. 2. Changes of chronic microvascular ischemia and volume loss. 3. 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 No change. Reading Location: [id number] Chest X-Ray 02/25/25 08:08 IMPRESSION: Cardiac enlargement. Likely pericardial effusion. Bibasilar atelectasis and small effusions. Mild congestion. Consider echocardiogram. Emphysema Reading Location: [id number] Echocardiogram 02/25/25 10:34 Interpretation Summary Normal LV size. Mild concentric left ventricular hypertrophy. The estimated ejection fraction is 55 %. Stage 1 diastolic dysfunction. Moderately dilated right ventricle. Mildly decreased right ventricular systolic function There is moderate size pericardial effusion with no echocardiographic indication of cardiac tamponade, Measuring 2 cm posteriorly and 1.3 cm anteriorly with a maximum 2.6 cm at the RA level. No tamponade parameters identified based on the AV inflow filling and lack of respiratory variation Mild tricuspid valve insufficiency. Right ventricular systolic pressure estimated to be 45 mmHg based on estimated RA pressure 15 mmHg due to dilated IVC with lack of respiratory variation Ordering Physician: Medhat Yi Referring Physician: TAYLOR PARK Performed By: Heather Rodriguez RDCS Chest X-Ray 02/25/25 18:18 IMPRESSION: 1. Cardiomegaly with diffuse pulmonary vascular congestion. 2. Small right and moderate left pleural effusions, superimposed consolidation not excluded. [facility] I personally reviewed ECHO, CXR from today and 2021 with patient and family at bedside. She has moderate to large bilateral plerual effusions and volume loss. Her heart silhouette is also enormous and the contour is c/w effusion. Assessment and Plan . Assessment and plan: ICU Problems: Acute hypoxemic and hypercapnic RF Atelectasis Pleural effusion Mixed metabolic acidosis and alkalosis from HCTZ Plan: IR consultatino TIMOTHY for thoracentesis and possible pericardiocentesis Aggressive diuresis Will stay on NIPPV o/n DNI repeat ABG in AM NPO after MN hold AM lovenox Send fluid for LDH, prot levels Jaime Lawrence MD P[facility] Critical Care Time: 60 min The entirety of this encounter was done via Telemedicine
[2025-02-25] MEDS: Norepinephrine 8 MG in 0.9% Normal Saline (250mL Bag) 242 ML 9.4 MG CONT INF (21:45)
[2025-02-25] MEDS: LACTATED RINGERS 500 ML 999 ML IV (22:27)
--- NOTE | 2025-02-25 23:02 | NURSING ---
2259- patient , Paul, contacted by this RN to update on patient condition and to get consent for pending transfer to higher level facility. Consent received to transfer by this RN and Mariah Luque RN over the phone. Informed that i would contact him when we were aware of what hospital she was going to and when.
[2025-02-25] MEDS: Albumin Human 25% (100 mL) 25 GM/100 ML BAG IV (23:07)
[2025-02-26] VITALS: BP 139/73; PULSE 92; RESP 22; TEMP 36.2; O2SAT 87
--- NOTE | 2025-02-26 | NURSING ---
2345- patient's and son to ICU waiting room, provided family with update regarding patient's transfer, still uncertain at this time which facility patient will go to, family understanding. 0000- Per Dr. Bojorquez, [facility] will not accept patient without a central line, 0003- this RN asked patient's for consent for central line placement, Paul. Agreeable at this time and signed consent. [facility] Patient became agitated and thrashing while Dr. Bojorquez placing central line. verbal order given to this RN by Dr. Bojorquez to administer 0.5mg of IV ativan x1 0017- life flight transport team bedside 0030- patient still agitated, instructed by Dr. Bojorquez to given another 0.5mg of IV ativan x1. While still attempting to get line, transport team informed this RN that the helicopter had to leave due to foggy conditions and that the patient would have to be transported via ground, ground transport contacted by life flight team. 0045- central line still being attempted by Dr. Bojorquez, patient intermittently agitated and thrashing around, Dr. Bojorquez ordered this RN to give 1mg ativan IV x1 0050- ER physician, Dr. Johns, to bedside to attempt central line placement. patient continued to be restless/ thrashing around. Staff bedside to help stabilize patient. Dr. Johns requested this RN ask Dr. bojorquez for some form of sedation. 0054- Dr. Bojorquez messaged by this RN to ask for sedation, physician called unit and gave this RN a verbal order for ketamine. Physician ordered 50mg of Ketamine IV x1, this was not given by this RN because the line was able to be placed before it came up. Ketamine was wasted w/ T. Rebel RN 0123- xray bedside for line placement imaging 0135- abg requested by transport team d/t patient mental status, Dr. Bojorquez agreeable and abg order placed by this RN 0148- ABG w/ pH 7.01 CO2 132.5 and O2 90. Transport team informed this RN at this time that they were uncomfortable transporting patient w/ CO2 so high as they did not think she would survive the ride. Meeting requested w/ ICU tele doc and family. ICU tele paged by this RN and family to bedside @ 0200 0210- Patient's , Paul, informed Dr. Lawrence, this RN and transport team that he would like to change patient to full code status, as patient not able to make decisions at this time and have her intubated and transported. 0212- Dr. Lawrence placed orders for a full code, 1000cc LR bolus and vasopressin 0220- patient intubated by Dr. Bojorquez, no sedation ordered. 7.5 ett placed 22@ lip 0230- xray bedside for confirmation of ett and OG placement 0250- pt belongings given to 0255- patient left unit w/ transport team
[2025-02-26] MEDS: Lorazepam 2 MG/ML WCH Syringe 0.5 MG IV ×2 (00:15→00:30)
[2025-02-26] MEDS: Lorazepam 2 MG/ML WCH Syringe 1 MG IV (00:45)
--- NOTE | 2025-02-26 00:53 | PCM.HOSP.N ---
Hospitalist Note I was contacted by [facility] and informed cardiology recommended patient transfer to tertiary care center for treatment of cardiac tamponade with hypotension after multiple doses of IV furosemide in the setting of known ~2 cm pericardial effusion with normal LVEF of ~55%. Patient was given IV albumin in addition to lactated Ringer's to support her preload with improved blood pressure from 68/49 mmHg up to 105/51 mmHg. I contacted [facility] transfer center and spoke with multiple physicians in an effort to expedite transfer. I was then informed by medical ICU attending that central line would need to be placed prior to her being excepted because she had 1 IV in her right foot and 1 was recently placed in her Right antecubital fossa. The patient was then prepped and draped in sterile fashion with patient medicated with subcutaneous lidocaine in the target area with subsequent attempt to place Right IJ CVC with patient having anxiety with panic attacks refractory to treatment with multiple doses of IV lorazepam that prevented the line from being able to be placed. I then contacted the ER physician on-call who was gracious enough to come and help with the Right IJ CVC successfully placed. ER physicians help is greatly appreciated! [facility] spoke with patient's who changed her CODE STATUS to Full Code after her pH dropped to 7.01 with patient subsequently intubated on the first attempt with a glide scope without induction anesthesia with tube noted at 22 cm at the lip with CXR revealing need for advancement. She was then emergently flown to [facility] for pericardial window to drain her pericardial effusion. [facility] Imaging Services [address], [place] [id number] Chest 1 View (Portable) MR#: [id number] Acct: [id number] Name: HILTON SEVILLA Rep #: [id number] : 1960 F 64 From: German Wilcox MD PCP: Dr. Adriano Patel, DO Status: ADM IN Study: Chest 1 View (Portable) Date of Exam: 02/26/25 Exam# [id number] Ordering Dr: Jaime Lawrence MD PROCEDURE: CHEST 1 VIEW (PORTABLE) 02/26/2025 REASON FOR EXAM: ETT PLACEMENT TECHNIQUE: Frontal view of the chest. COMPARISON: 02/26/2025 FINDINGS: ETT tip between the inlet and the brian. Right IJ CVC tip in SVC. Enteric tube tip likely within a hiatal hernia. Consider 10 cm advancement. Axfz-oslgfrl-htel-right effusions, adjacent atelectasis/consolidation. Emphysema and smoking-related interstitial lung disease. No pneumothorax. RAD/Chest 1 View (Portable) IMPRESSION: Enteric tube tip is likely within a large hiatal hernia. Consider advancement. Reading Location: [facility]- CC: Dr. Jaime Lawrence MD; Dr. Adriano Patel, DO ~ Inspector Precision: Signed
[2025-02-26 01:00] VITALS: BP 141/110; PULSE 124; RESP 23
--- NOTE | 2025-02-26 01:33 | RAD_ITS ---
PROCEDURE: CXR FOR LINE PLACEMENT 02/26/2025 REASON FOR EXAM: LINE PLACEMENT TECHNIQUE: CXR FOR LINE PLACEMENT COMPARISON: 02/25/2025 FINDINGS: Right IJ CVC tip in SVC. Cardiac enlargement. Calcified aorta. Rotated patient. Small right effusion, adjacent airspace disease favoring atelectasis. Moderate left effusion, adjacent atelectasis/consolidation. No pneumothorax. RAD/CXR for Line Placement IMPRESSION: Successful central line placement. Reading Location: [facility]
[2025-02-26 01:59] LABS: Base Excess 3 mmol/L (-2 to +2); FI02 100.0; PO2 90 mmHG (75-100); SITE L Radial; SO2 89 % (95-99)
[2025-02-26 02:00] VITALS: BP 140/81; PULSE 98; RESP 17; O2SAT 97
[2025-02-26 02:20] VITALS: BP 135/72
[2025-02-26] MEDS: Sodium Bicarbonate 8.4% 50 ML Syringe 50 MEQ IV (02:20)
[2025-02-26] MEDS: Lactated Ringers 1,000 ML 999 ML IV (02:21)
[2025-02-26] MEDS: 0.9% Saline Lock 10 ML Syringe IV (02:23)
[2025-02-26 02:30] VITALS: BP 103/67
--- NOTE | 2025-02-26 02:30 | RAD_ITS ---
PROCEDURE: CHEST 1 VIEW (PORTABLE) 02/26/2025 REASON FOR EXAM: ETT PLACEMENT TECHNIQUE: Frontal view of the chest. COMPARISON: 02/26/2025 FINDINGS: ETT tip between the inlet and the brian. Right IJ CVC tip in SVC. Enteric tube tip likely within a hiatal hernia. Consider 10 cm advancement. Xjig-meykybo-orpk-right effusions, adjacent atelectasis/consolidation. Emphysema and smoking-related interstitial lung disease. No pneumothorax. RAD/Chest 1 View (Portable) IMPRESSION: Enteric tube tip is likely within a large hiatal hernia. Consider advancement. Reading Location: [facility]
[2025-02-26 02:32] VITALS: BP 93/60
--- NOTE | 2025-02-26 02:50 | EX.ED.PROC ---
Procedure Report Date of Procedure: 02/26/25 I was called to ICU to place a right internal jugular triple-lumen catheter. The right anterior neck was cleaned and prepped in a sterile manner. 1% plain lidocaine was used to anesthetize the area. After several attempts using ultrasound guidance, the right internal jugular vein was cannulated. There was dark blood returned. It was nonpulsatile. Guidewire was then inserted through the needle. The needle was removed. Small incision was made at that insertion site of the guidewire. A dilator was then passed over the guidewire and then was removed. The triple-lumen catheter was then inserted over the guidewire. The guidewire was removed intact. The triple-lumen catheter was then sutured in place. Nursing staff applied a dressing. All ports flushed easily. Postprocedure chest x-ray was obtained. There was no pneumothorax. The tip of the triple-lumen catheter was just into the right atrium. Patient tolerated the procedure well.
--- NOTE | 2025-02-26 03:06 | NURSING ---
0010- report called to gayle Marquis RN by this RN 0255- called Gayle Marquis RN, to provide update on patient being intubated w/ code abida carmona
--- NOTE | 2025-02-26 07:43 | DS.PCM_ITS ---
Providers Date of Admission: 02/25/25 Date of Discharge: 02/26/25 Primary Care Physician: Dr. Adriano Patel, Consultations 02/25/25 10:34 Consult: Nephrology Routine Consulting Provider: Ofelia Mijares Reason for Consult: Severe hyponatremia with CHF exacerbation EMERGENT Consult: No MD Notified: Yes Date Notified: 02/25/25 Time Notified: 09:44 Method of Notification: Text 02/25/25 18:51 Consult: Changeover Operator / Pulmonary Medicine Routine Consulting Provider: Intensivists/Pulmonary Med Reason for Consult: hyponatremia, AMS,CHF exa, Resp failure EMERGENT Consult: No MD Notified: Yes Date Notified: 02/25/25 Time Notified: 20:14 Method of Notification: Text 02/25/25 21:43 Consult: Cardiology Routine Consulting Provider: Jaime Lawrence Reason for Consult: pericardial tamponade EMERGENT Consult: Yes MD Notified: Yes Date Notified: 02/25/25 Time Notified: 21:44 Method of Notification: Verbal Reason For Visit: CHF EXA, HYPONATREMIA Diagnosis Discharge Diagnosis (1) Hyponatremia: Status: Acute Code(s): E87.1 - Hypo-osmolality and hyponatremia Plan 64 old female came to ED with leg swelling nausea and lightheadedness and dyspnea on exertion. Serum sodium 112 1. Acute on chronic CHF exacerbation: Patient be admitted to PCU. Chest x-ray reviewed and shows mild pulmonary venous congestion and lower lobes atelectasis. Twelve-lead EKG individually reviewed, NSR low voltage QRS 78 beats minute. QTc 444 ms. Low-dose Lasix 20 mg IV twice daily. Heart failure core measures including intake and output, fluid restriction less than 1500 mL, daily weight monitoring, kidney and electrolytes monitoring. 2D echo was reported Interpretation Summary Normal LV size. Mild concentric left ventricular hypertrophy. The estimated ejection fraction is 55 %. Stage 1 diastolic dysfunction. Moderately dilated right ventricle. Mildly decreased right ventricular systolic function There is moderate size pericardial effusion with no echocardiographic indication of cardiac tamponade, measuring 2 cm posteriorly and 1.3 cm anteriorly with a maximum 2.6 cm at the RA level. No tamponade parameters identified based on the AV inflow filling and lack of respiratory variation Mild tricuspid valve insufficiency. Right ventricular systolic pressure estimated to be 45 mmHg based on estimated RA pressure 15 mmHg due to dilated IVC with lack of respiratory variation. Though yesterday, echo was done, it reported moderate sized pericardial effusion with no echo indication of cardiac tamponade as mentioned above with moderate limited RV and RVSP 45 mmHg. In the evening about 5:40 PM, patient became lethargic, more short of breath 5 L dose was more percolates as informed by the RN. Chest x-ray shows pulmonary edema therefore Lasix 40 mg IV 1 dose also given. With changing clinical condition, ABG and repeat chest x-ray and transfer to ICU was ordered. Was involved in active care from 5:30 PM to 7 PM until gave signout to nighttime hospitalist. Later on evening chest x-ray still reported diffuse pulmonary vascular congestion, small right and moderate left pleural effusion. 2. Acute on chronic hypoxic and hypercarbic respiratory failure: Patient not on home oxygen but was getting short of breath on walking. On admission patient was on 3 L of oxygen In the morning today after discussion with the nighttime hospitalist it was learned that with diuresis blood pressure dropped with loss of preload therefore central line was inserted. IV albumin and lactated Ringer was given for support preload. [facility] transfer line was contacted and he spoke to multiple physicians to expedite transfer. In the meantime she has a code from DNR CC to full code. Initial ABG 7.2 /64 on 6 L of oxygen. It got worse with pH 7.0 1/132 and 100% FiO2 on 100% nonrebreather patient was also intubated by nighttime hospitalist. Patient was transferred to [facility] through air transport/helicopter. Indication was pericardial window for pericardial effusion. 3. Hypotension/cardiogenic shock due to pericardial effusion with changing physiology to cardiac tamponade with diuresis and then resuscitation with IV fluid and IV albumin and stabilized. 4. Severely hyponatremic hypervolemic hypotonic hyponatremia probably due to HCTZ/medication: Serum sodium was 127 on 02/19 about 1 week ago and today 112. Patient had IV fluid normal saline 500 mL bolus in the ED. Repeat serum sodium stat ordered. Shirt Sorter consulted. urine lites ordered. Serum TSH and serum cortisol tomorrow a.m. Initially thought to change medicine may be secondary to hypotonic sodium but serum sodium improved from 112 to 116 therefore hypotonic send was not given. This was discussed with the implementation director and decided not to give hypertonic saline. . Suspicion of UTI: Urine culture ordered. Empiric IV ceftriaxone ordered. Hypertension: BP was very high at 200/137. It looks patient was started on HCTZ and lisinopril a week ago but his home medications does not show these medications. Continue lisinopril. Hold HCTZ 5. Hypothyroidism: TSH and free T4 tomorrow a.m. 6. GERD: On PPI continued 7. DVT prophylaxis moderate risk: Lovenox 40 mL subcu daily ordered. In the morning on 02/26/2025 after discussion with the nighttime hospitalist came to know following details. During the night course, patient was given further courses of diuretics in order to treat CHF exacerbation/fluid overload which might relate to the hypotension and decreased preload though it was done in good intension. Bedside echo was done which showed collapse of RV and RA and then IV fluid and IV albumin was given. There was also difficulty putting central line and after several attempts, ED physician IJV central line. Supervisor Plastering was consulted. CODE STATUS was changed by family to full code. Patient was resuscitated and emergently flown to [facility] to treat pericardial effusion with high suspicion of cardiac tamponade which was corrected by IV fluid but requires definite pericardial window. Detailed mention IN discharge summary Living will/advanced directive/end of life care: Patient does not have living will or advanced directive. She does not have diabetes or power of applications programmer analyst for health but her sitting in the ED is next to kin after discussion of benefits/risks procedures involved with full code, DNR CC arrest and DNR CC, the patient opted for DNR CC arrest with no intubation Patient doesn't want artificial life support including intubation, tube feed, ventilator and/chest compression, central venous catheter, vasopressor and DC shock if needed Patient was transferred to [facility]. Laboratory Results 02/25/25 07:18: WBC 8.7, RBC 5.85 H, Hgb 16.2 H, Hct 49.0 H, MCV 83.8, MCH 27.7, MCHC 33.1, RDW Std Deviation 42.1, RDW Coeff of Aury 13.6, Plt Count 263, MPV 9.1, Immature Gran % (Auto) 0.800, Neut % (Auto) 71.2 H, Lymph % (Auto) 14.9 L, Hyde % (Auto) 12.6 H, Eos % (Auto) 0.0, Baso % (Auto) 0.5, Absolute Neuts (auto) 6.2, Absolute Lymphs (auto) 1.29, Nucleated RBC % 0.2, Sodium 112 L*, Potassium 5.5 H, Chloride 78 L, Carbon Dioxide 20.7 L, Anion Gap 13, BUN 11, Creatinine 0.70, Estim Creat Clear Calc 91.90, Est GFR (MDRD) Non-Af 96, BUN/Creatinine Ratio 15.4, Glucose 112 H, Calcium 9.2, Total Bilirubin 0.67, AST 31, ALT 26, A lkaline Phosphatase 106 H, NT pro BNP II 5756 H, Total Protein 7.3, Albumin 3.8, Globulin 3.5, Albumin/Globulin Ratio 1.1 02/25/25 09:00: Urine Color Yellow, Urine Clarity Sl. Cloudy, Urine pH 6.0, Ur Specific [place] 1.015, Urine Protein 100 H, Urine Glucose (UA) Normal, Urine Ketones 5 H, Urine Occult Blood Negative, Urine Nitrite Negative, Urine Bilirubin Negative, Urine Urobilinogen 1 H, Ur Leukocyte Esterase 500 H, Urine RBC 0 SEEN, Urine WBC 5-10 SEEN, Ur Squamous Epith Cells 5-10 SEEN, Urine Bacteria 2+, Urine Mucus 0 SEEN 02/25/25 10:59: Cortisol AM Sample Pending Medications at Discharge Home Medications pantoprazole 40 mg tablet,delayed release 40 mg PO DAILY stomach 12/18/16 levothyroxine 150 mcg tablet (Synthroid) 150 mcg PO DAILY thyrdoid 09/13/19 Physical Exam Narrative Patient was transferred before the start of my shift at 7 AM therefore physical exam findings were not done. Weight / BMI Weight Weight: 213 lb 11.211 oz Body Mass Index (BMI) 36.6 ABG / Lab / Microbiology Data 02/25/25 07:18 02/25/25 21:27 Laboratory: Laboratory Results - last 24 hr 02/25/25 07:18: Sodium 112 L* 02/25/25 14:32: Sodium 116 L* 02/25/25 17:51: Sodium 116 L* 02/25/25 21:27: Sodium 117 L* 02/26/25 01:32: POC Glucose 177 H ABG: ABG 02/25/25 02/26/25 19:13 01:48 Specimen Type ART ART Sample Site L Radial L Radial pH 7.25 L 7.01 L* Bicarbonate Actual 28.7 H 33.7 H Total CO2 31 38 Base Excess 2 3 H O2 Saturation 87 L 89 L O2 % 6.0 100.0 ABG pCO2 65.9 H 132.5 H* ABG pO2 64 L 90 Juan Antonio Test Positive N/A O2 Delivery Device Cannula NRB Vent Mode Not entered Not entered Crit Call To/Read Back Yes Radiography Diagnostic Testing: Radiology Impression Chest X-Ray 02/25/25 18:18 IMPRESSION: 1. Cardiomegaly with diffuse pulmonary vascular congestion. 2. Small right and moderate left pleural effusions, superimposed consolidation not excluded. Reading Location: [facility] Chest X-Ray 02/26/25 01:33 IMPRESSION: Successful central line placement. Reading Location: [facility] Chest X-Ray 02/26/25 02:30 IMPRESSION: Enteric tube tip is likely within a large hiatal hernia. Consider advancement. Reading Location: [facility] D/C Instructions DC O2, CPAP, BIPAP Needs Home O2 Discharge instructions: No Meaningful Use Info Meaningful Use Meaningful Use Diagnoses (Choose all that apply): None applicable Discharge Plan Admission Admit Date/Time: 02/25/25 09:28 Primary Reason for Your Visit: Cardiogenic shock Attending Provider: Medhat Yi Primary Care Provider: Adriano Patel Consulting Providers: Sj Degroot; Sadiq Agudelo; Arnol Thompson; Rishi Osullivan; Nino Messer; Sergio Mcpherson; Manuel Simental; Michelle Frazier; Cabrera Raphael; Sukhjinder Martin; Jaime Lawrence; Kate Bran; Anatoly Cooper; Kavita Garcia; Mansoor Fox; Trey Guadarrama; Eliel Mcgee; Arben Castillo; Mala Lara; Chun Watters; Martell Avery; Neel Durham; Farhan Sterling; Ofelia Mijares Discharge Orders/Prescriptions Prescriptions: No Action levothyroxine [Synthroid] 150 mcg tablet 150 mcg PO DAILY pantoprazole 40 MG tablet 40 mg PO DAILY Referrals / Follow Up: Adriano Patel DO [Primary Care Provider] - Disposition Disposition (needs filled in before D/C Order can be placed): DC/Tx to Another Type of HCF Charges/Coding Visit Charges Inpatient E&M: 90670 Disch Hosp >30min
--- NOTE | 2025-02-27 02:25 | CPS ---
ABG results provided to [employer] crew on premises.
[2025-02-27 02:52] LABS: Creatinine, Urine (random) 37.50 mg/dL (28.00-217.00)
[2025-02-27 03:29] LABS: Microalbumin,Random Urine 80.8 mg/L (<20 mg/L); Protein, Urine (Random) 18.4 mg/dL (0.0-12.0); Protein:Creat Ratio 491 mg/g CRE (0-200)
[2025-02-27 04:15] LABS: Osmolality, Urine 334 mOsm/KG
== END 2025-02-26 02:55 | disposition other institution (70) | DRG 291 ==
LOC: ED 09:40 → PCU 09:53 → ICU 19:27
PROVIDERS: Admitting Provider Internal Medicine; Emergency Provider Surgery; PCP Family Medicine; Visit Provider Internal Medicine
DX: I11.0 Hypertensive heart disease with heart failure (principal); J96.22 Acute and chronic respiratory failure with hypercapnia; R57.0 Cardiogenic shock; I50.43 Acute on chronic combined systolic (congestive) and diastolic (congestive) heart failure; J96.21 Acute and chronic respiratory failure with hypoxia; I31.39 Other pericardial effusion (noninflammatory); I31.4 Cardiac tamponade; E87.1 Hypo-osmolality and hyponatremia; E87.20 Acidosis, unspecified; E87.3 Alkalosis; J98.11 Atelectasis; J90 Pleural effusion, not elsewhere classified; N39.0 Urinary tract infection, site not specified; E03.9 Hypothyroidism, unspecified; I67.1 Cerebral aneurysm, nonruptured; K21.9 Gastro-esophageal reflux disease without esophagitis; F17.210 Nicotine dependence, cigarettes, uncomplicated; E87.6 Hypokalemia; Z51.5 Encounter for palliative care; Z66 Do not resuscitate; F41.0 Panic disorder [episodic paroxysmal anxiety]; Z79.890 Hormone replacement therapy; Z86.16 Personal history of COVID-19
CPT/HCPCS: 31500; 36415; 36600; 70450; 71045; 71046; 80048; 80053; 81001; 82043; 82436; 82533; 82570; 82803; 82962; 83735; 83880; 83935; 84133; 84156; 84295; 84300; 85025; 87086; 87088; 93005; 93306; 94002; 97167; 97802; 99252; 99285; 99406; P9047; A4216; C1751; G0463; J1938; J2405